=== PATIENT | female | born 1945 | race Caucasian/White ===

== ENCOUNTER 2016-04-27 10:30 | Day surgery (SDC) | payer OTHER, BC ==
[2016-04-27] MEDS ORDERED: MIDAZOLAM 2 MG/2 ML VIAL ONE (11:44)
[2016-04-27 11:54] LABS: INR 1.43 (0.83-1.16); PROTIME(PATIENT) 17.4 SEC (12.0-15.0)
[2016-04-27] MEDS ORDERED: PROPOFOL/EMULSION 500 MG/50 ML BOTTLE IV ONE (11:58)
[2016-04-27] MEDS ORDERED: fentaNYL 100 MCG/2 ML INJ ONE (11:58)
[2016-04-27] MEDS ORDERED: LIDOCAINE 2% 5 ML SDV ONE ×2 (11:59→12:00)
[2016-04-27] MEDS ORDERED: levOFLOXACIN 500 MG/DEXTROSE/100 ML BAG IV ONE (12:23)
[2016-04-27] MEDS ORDERED: levOFLOXACIN 500 MG/DEXTROSE 100 ML IV ONE (12:30)
--- NOTE | 2016-04-27 13:57 | GPN ---
[f rep st] PROCEDURE NOTE DATE OF PROCEDURE: 04/27/2016 PROCEDURE: Esophagogastroduodenoscopy with biopsy, endoscopic ultrasound with fine-needle aspiration. INDICATION: The patient is a 70-year-old female with history of COPD, chronic pancreatitis, who presents with complaints of upper abdominal pain, as well as abnormal imaging. She presents for further evaluation. CONSENT: Risks, benefits, and alternatives of the procedure were discussed in great detail with the patient. Risks of infection, bleeding, perforation, sedation, and pancreatitis were discussed. All questions were answered. Informed consent was obtained. MEDICATIONS: Propofol. Please see Anesthesiology record for details. Levaquin 5 mg IV x1. ESTIMATED BLOOD LOSS: Insignificant. ESOPHAGOGASTRODUODENOSCOPY EXAMINATION: The Olympus upper endoscopy was introduced via the mouth and advanced to the esophagus. The proximal and mid esophagus were normal in appearance. The patient had an irregular Z line and biopsies were taken. The stomach was entered and closely examined, including retroflexed view of angularis, cardia, and fundus. The mucosa in the whole stomach was mildly erythematous in a patchy distribution and biopsies were taken. The duodenal bulb and second portion of the duodenum were normal in appearance. Biopsies were taken to rule out celiac sprue. ENDOSCOPIC ULTRASOUND EXAMINATION: The Olympus linear echoendoscope was introduced into the mouth and advanced to the second portion of the duodenum. The pancreas was carefully examined from the uncinate process to the tail where the spleen was seen. The pancreatic duct and the head of the pancreas was dilated and an approximate 5 mm stone, echoic with acoustic shadowing, was seen in the head of the pancreas. The pancreatic duct in the head measured about 6mm. In the pancreas, she was noted to have calcifications as well as a hyperechoic pancreatic duct wall. Multiple dilated side branches were noted. In the body of the pancreas, a 17.6 mm cyst was seen. It was thin-walled and it did not have any obvious communication with the pancreatic duct. Doppler was used to rule out intervening vessles and 1 pass was made with a [employer] 22-gauge needle into the lesion. Approximately 0.5cc of fluid was aspirated was sent for CEA. Slides were also made. No suspicious periportal, peripancreatic, or perigastric nodes were appreciated. No obvious liver lesion was seen. The common bile duct was without stone, stricture or stenosis. IMPRESSION: 1. Chronic calcific pancreatitis-with cyst. Did not resemble a typical pseudocyst. FNA performed. 2. Pancreatic duct stone 3. Gastritis, status post biopsy. 4. Biopsies taken to rule out celiac disease. 5. Irregular Z line. RECOMMENDATIONS: 1. Follow up on biopsies and FNA results. 2. Ciprofloxacin x3 days. 3. Follow up in the office in 4 weeks. 4. Will discuss the risks and benefits of ERCP at office visit. /[id number]/MODL MTDD
== END 2016-04-27 14:15 | disposition home or self-care (01) ==
LOC: FSGY 10:30
PROVIDERS: ATTEND Internal Medicine Gastroenterology
PROC: 0DB68ZX Excision of Stomach, Via Natural or Artificial Opening Endoscopic, Diagnostic (ICD-10-PCS; 2016-04-27)
PROC: 0DB98ZX Excision of Duodenum, Via Natural or Artificial Opening Endoscopic, Diagnostic (ICD-10-PCS; 2016-04-27)
PROC: 0F9G4ZX Drainage of Pancreas, Percutaneous Endoscopic Approach, Diagnostic (ICD-10-PCS; 2016-04-27)
PROC: 0DB38ZX Excision of Lower Esophagus, Via Natural or Artificial Opening Endoscopic, Diagnostic (ICD-10-PCS; principal; 2016-04-27 11:45)
DX: K86.2 Cyst of pancreas (principal); K29.70 Gastritis, unspecified, without bleeding; K22.9 Disease of esophagus, unspecified; K86.1 Other chronic pancreatitis; K86.89 Other specified diseases of pancreas; K50.00 Crohn's disease of small intestine without complications; R10.10 Upper abdominal pain, unspecified; R11.2 Nausea with vomiting, unspecified; J44.9 Chronic obstructive pulmonary disease, unspecified; Z79.01 Long term (current) use of anticoagulants; Z86.718 Personal history of other venous thrombosis and embolism; Z85.118 Personal history of other malignant neoplasm of bronchus and lung
CPT/HCPCS: J1956; J2250; J2704; J3010

== ENCOUNTER 2016-05-02 11:10 | Inpatient (IN) | payer OTHER, BC ==
[2016-05-02] MEDS ORDERED: NS 1,000 ML IV ONE ×2 (11:50→13:12)
[2016-05-02] MEDS ORDERED: ONDANSETRON 4 MG/2 ML VIAL IVP ONE (11:50)
[2016-05-02 12:31] LABS: % IMMATURE GRANULYOCYTES 0.7 % (0.0-1.1); ABSOLUTE IMMATURE GRANULOCYTES 0.12 10^3/uL (0.00-0.10); ADD DIFF? NO; ADD MORPH? NO; ADD SCAN? NO; ATYPICAL LYMPHOCYTE FLAG 0 (0-99); FRAGMENT RBC FLAG 0 (0-99); HEMATOCRIT 33.6 % (38.0-47.0); LEFT SHIFT FLG 20 (0-99); LIPEMIA HEMOLYSIS FLAG 80 (0-99); MEAN CELL HEMOGLOBIN 34.8 pg (27.9-34.1); MEAN CELL HEMOGLOBIN CONCENTR. 32.7 g/dL (32.4-36.7); MEAN CELL VOLUME 106.3 fL (81.5-99.8); PLATELET CLUMPS FLAG 20 (0-99); PLATELET COUNT 213 10^3/uL (150-400); RED BLOOD CELL COUNT 3.16 10^6/uL (4.18-5.33)
[2016-05-02 12:37] LABS: ALANINE AMINOTRANSFERASE 25 IU/L (9-52); ALBUMIN 3.7 g/dL (3.5-5.0); ALKALINE PHOSPHATASE 70 IU/L (38-126); ANION GAP 19 mEq/L (8-16); ASPARTATE AMINOTRANSFERASE 23 IU/L (14-46); BILIRUBIN,TOTAL 0.8 mg/dL (0.1-1.4); BILIRUBIN-CONJUGATED 0.6 mg/dL (0.0-0.5); BILIRUBIN-UNCONJUGATED 0.2 mg/dL (0.0-1.1); CALCIUM 9.4 mg/dL (8.5-10.4); CARBON DIOXIDE 19 mEq/l (22-31); CHLORIDE 101 mEq/L (97-110); CREATININE 4.8 mg/dL (0.6-1.0); GLOMERULAR FILTRATION RATE 9; GLUCOSE 85 mg/dL (70-100); POTASSIUM 4.6 mEq/L (3.5-5.2); SODIUM 139 mEq/L (134-144); TOTAL PROTEIN 6.6 g/dL (6.3-8.2)
--- NOTE | 2016-05-02 13:10 | EDPHY ---
H & P Time Seen by Provider: 05/02/16 11:46 HPI/ROS: CHIEF COMPLAINT: Abdominal pain and vomiting HISTORY OF PRESENT ILLNESS: History of lung cancer which is stable on 2 L oxygen. History of chronic pancreatitis. Had EGD with biopsy by Dr. Napoles on Wednesday and has had vomiting every day and epigastric abdominal pain since then. Vomiting severe not associated with coffee-grounds or hematemesis. Associated with significant dehydration decreased urinary output and diffuse abdominal pain especially epigastric. Worse with any attempted oral intake. REVIEW OF SYSTEMS: Eye: no change in vision ENT: no sore throat Cardiac: no chest pain or syncope Pulmonary: no cough or SOB, chronic respiratory status is unchanged on home oxygen. Abdomen: HPI Musculoskeletal: no back pain Skin: no rash Neuro: no headache Constitutional: no fever : no urinary symptoms A comprehensive 10 point review of systems is otherwise negative aside from elements mentioned in the history of present illness. PAST MEDICAL HISTORY: Chronic pancreatitis, lung cancer Crohn's disease, COPD. Social history: not currently smoker, here with daughter. General Appearance: Alert and conversant, cooperative. Eyes: No scleral icterus. ENT, Mouth: Normal mucous membranes. Respiratory: Decreased breath sounds with slight expiratory wheezes bilaterally but speaks in full sentences. Cardiovascular: Regular rate and rhythm. Gastrointestinal: Right lower quadrant and epigastric pain but no peritoneal signs. Neurological: Alert and oriented x3. Normally conversant. Face symmetric, normal movement and sensation in all extremities. Skin: Warm and dry, no rashes. Musculoskeletal: No peripheral edema and no joint swelling. Psychiatric: Not agitated. Emergency Department course/MDM: Patient received IV pain medication and Zofran for nausea. 1309: Results discussed with the patient and family. Additional IV fluids. Consultation with GI of the [facility] and [facility]. Normal saline IV hydration 2 L, admission for Gastroenterology and Nephrology consultation. 1400: Morphine 4 mg IV times to and still has pain, Dilaudid 1 mg IV ordered. Smoking Status: Former smoker Constitutional: Initial Vital Signs Temperature (C) 36.7 C 05/02/16 11:26 Heart Rate 94 05/02/16 11:26 Respiratory Rate 16 05/02/16 11:26 Blood Pressure 101/71 05/02/16 11:26 O2 Sat (%) 87 L 05/02/16 11:26 O2 Delivery Mode Room Air Allergies/Adverse Reactions: erythromycin base [Erythromycin Base] Allergy (Mild, Verified 04/06/16 16:50) rash/GI upset Home Medications: Medication Instructions Recorded Warfarin Sodium [Coumadin 5MG (*)] 12.5 mg PO MWF@16 06/28/13 azaTHIOprine [Imuran 50 mg (*)] 50 mg PO BID 07/03/13 Acetaminophen [Tylenol 325mg (*)] 325 - 650 mg PO BID PRN 04/11/15 Warfarin Sodium [Coumadin 5MG (*)] 10 mg PO SUTUTHSA@16 04/11/15 Acetamn/Diphenhydramine 500/25 1 each PO HS PRN 02/29/16 [Tylenol PM (*)] Cyanocobalamin [Vitamin B12 (*)] 1,000 mcg PO DAILY 02/29/16 Multivitamins [Multivitamin (*)] 1 each PO DAILY 02/29/16 Ondansetron Odt [Zofran Odt 4 mg 4 mg PO Q4 #20 tab 03/06/16 (*)] Sennosides 8.6 mg PO DAILY PRN #30 tablet 03/06/16 oxyCODONE IR [Oxycodone Ir (*)] 5 mg PO Q12HRS PRN 04/06/16 Medical Decision Making - Diagnostics Imaging: CT acute on chronic pancreatitis otherwise negative, sweta at 1437. Differential Diagnosis: Differential diagnosis considered for abdominal pain including but not limited to appendicitis, cholecystitis, pancreatitis, gastritis and urinary tract infection. Consult/Admit Bed Type: [facility] 1314, [facility] [place] 1310, [facility] 1320 - Data Points Laboratory Results: Laboratory Results 05/02/16 11:50 05/02/16 11:50 05/02/16 11:50 WBC 17.63 H 10^3/uL (3.80-9.50) RBC 3.16 L 10^6/uL (4.18-5.33) Hgb 11.0 L g/dL (12.6-16.3) Hct 33.6 L % (38.0-47.0) MCV 106.3 H fL (81.5-99.8) MCH 34.8 H pg (27.9-34.1) MCHC 32.7 g/dL (32.4-36.7) RDW 14.0 % (11.5-15.2) Plt Count 213 10^3/uL (150-400) MPV 11.0 fL (8.7-11.7) Neut % (Auto) 89.7 H % (39.3-74.2) Lymph % (Auto) 0.9 L % (15.0-45.0) [place] % (Auto) 8.4 % (4.5-13.0) Eos % (Auto) 0.1 L % (0.6-7.6) Baso % (Auto) 0.2 L % (0.3-1.7) Nucleat RBC Rel Count 0.0 % (0.0-0.2) Absolute Neuts (auto) 15.83 H 10^3/uL (1.70-6.50) Absolute Lymphs (auto) 0.16 L 10^3/uL (1.00-3.00) Absolute Monos (auto) 1.48 H 10^3/uL (0.30-0.80) Absolute Eos (auto) 0.01 L 10^3/uL (0.03-0.40) Absolute Basos (auto) 0.03 10^3/uL (0.02-0.10) Absolute Nucleated RBC 0.00 10^3/uL (0-0.01) Immature Gran % 0.7 % (0.0-1.1) Immature Gran # 0.12 H 10^3/uL (0.00-0.10) Sodium 139 mEq/L (134-144) Potassium 4.6 mEq/L (3.5-5.2) Chloride 101 mEq/L (97-110) Carbon Dioxide 19 L mEq/l (22-31) Anion Gap 19 H mEq/L (8-16) BUN 52 H mg/dL (7-23) Creatinine 4.8 H D mg/dL (0.6-1.0) Estimated GFR 9 Glucose 85 mg/dL (70-100) Calcium 9.4 mg/dL (8.5-10.4) Total Bilirubin 0.8 mg/dL (0.1-1.4) Conjugated Bilirubin 0.6 H mg/dL (0.0-0.5) Unconjugated Bilirubin 0.2 mg/dL (0.0-1.1) AST 23 IU/L (14-46) ALT 25 IU/L (9-52) Alkaline Phosphatase 70 IU/L (38-126) Total Protein 6.6 g/dL (6.3-8.2) Albumin 3.7 g/dL (3.5-5.0) Lipase 3234.0 H IU/L (23-300) Medications Given: Discontinued Medications Hydromorphone HCl (Dilaudid) 1 mg IVP EDNOW ONE Stop: 05/02/16 14:01 Last Admin: 05/02/16 14:06 Dose: 1 mg Sodium Chloride (Ns) 1,000 mls @ 0 mls/hr IV ONCE ONE PRN Reason: Wide Open Stop: 05/02/16 11:51 Last Admin: 05/02/16 12:02 Dose: 1,000 mls Sodium Chloride (Ns) 1,000 mls @ 0 mls/hr IV ONCE ONE PRN Reason: Wide Open Stop: 05/02/16 13:13 Last Admin: 05/02/16 13:12 Dose: 1,000 mls Morphine Sulfate (Morphine) 4 mg IVP EDNOW ONE Stop: 05/02/16 11:51 Last Admin: 05/02/16 12:02 Dose: 4 mg Morphine Sulfate (Morphine) 4 mg IVP EDNOW ONE Stop: 05/02/16 13:04 Last Admin: 05/02/16 13:11 Dose: 4 mg Ondansetron HCl (Zofran) 4 mg IVP EDNOW ONE Stop: 05/02/16 11:51 Last Admin: 05/02/16 12:02 Dose: 4 mg Departure - Departure Disposition: [facility] Inpatient Acute Clinical Impression: Acute pancreatitis, Acute renal failure Condition: Serious
[2016-05-02] MEDS ORDERED: HYDROmorphONE/DILAUDID 1 MG/ML SYR IVP ONE (14:00)
--- NOTE | 2016-05-02 14:41 | CT ---
CT Abdomen and Pelvis Without Contrast History: left upper quadrant pain Technique: Ultrathin ultrafast [address] through the abdomen and pelvis without contrast. Dose reduction techniques were utilized. Comparison August 27, 2015 Findings: Since the prior exam there are multiple surgical clips in the gallbladder fossa consistent with cholecystectomy. There are multiple chronic stones in the pancreatic head associated with chroni c pancreatic ductal dilatation and a small, approximately 1 cm, low density round lesion in the poste rior wall of the pancreatic tail. There is new edema with a small amount of retroperitoneal fluid si tting between the distal pancreatic body and tail and the left kidney. There is edema in the adjacent peritoneal fat, paracolic gutter and left perirenal fat, as well as around the proximal celiac and S MA vessels.. There is no intra or extrahepatic biliary obstruction. The liver is normal in size and h omogeneous. The lung bases remain normally aerated without pleural fluid. There is chronic nonobstruc tive bilateral nephrolithiasis. Is a small amount of free fluid in the pelvis. There is no bowel obst ruction or obvious ileus. There is no free air. There is dense atherosclerotic calcification of the n ormal sized distal thoracic and abdominal aorta. There is no diverticulosis or diverticulitis. There is no evidence for appendicitis. The cecum is located in the right flank, at the end of a redundant a sending colon. Above the umbilicus. Impression: Suspect acute superimposed upon chronic pancreatitis. If there is concern for pancreatic necrosis, then consider CT with IV contrast. Results called to Dr. Evans. General information for patients regarding this examination can be found at [email or web address]. If you have questions or comments about this report, please contact me at [phone] (hospital) or [phone] (cell).
--- NOTE | 2016-05-02 15:38 | GHP ---
[f rep st] HISTORY AND PHYSICAL DATE OF ADMISSION: 05/02/2016 CHIEF COMPLAINT: Abdominal pain. HISTORY OF PRESENT ILLNESS: This is a 70-year-old female, who has been having problems with abdomina l pain on off, actually, for some time. She was admitted at the end of February with gallstone pancr eatitis. Her MRCP, at that time, showed pancreatic duct dilatation and probably benign pancreatic cy st. She had a laparoscopic cholecystectomy, at that time, and had been doing fairly well after that. However, she was still having some pain, and underwent ERCP 4 days ago. There was a pancreatic cyst that was aspirated. There was also a pancreatic duct stone. Her pancreatic duct stone was seen in t he head of the pancreas. Cytology from aspiration did not show any malignant cells. Since her ERCP, she has been having worsening abdominal pain, epigastric and left upper quadrant, wit h radiation to the back. This is sharp. She has had nausea vomiting, as well as a little bit of wanda rrhea. No fevers or chills. REVIEW OF SYSTEMS: A 10-point review of systems was obtained and negative. PAST MEDICAL HISTORY: 1. Recent cholecystectomy and chronic pancreatitis as above. 2. Recent ERCP as above. 3. 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 4. History of DVT and PE. 5. Chronic obstructive pulmonary disease. 6. History of Crohn disease, in remission, and on azathioprine. 7. History of small-bowel obstruction due to Crohn disease. 8. Hysterectomy. SOCIAL HISTORY: No smoking. Lives alone. She does have a daughter lives nearby. FAMILY HISTORY: Reviewed and noncontributory. PHYSICAL EXAM: VITAL SIGNS: Afebrile blood pressure is 111/70, heart rate 87, oxygen saturation 99% on 2 L. GENERAL: The patient is well developed, no apparent distress. HEENT: Nonicteric sclerae. EOM are intact. Dry mucous membranes. NECK: Supple. No thyromegaly. LUNGS: Good effort. Ana r to auscultation bilaterally. CARDIOVASCULAR: Regular rate and rhythm. No murmurs, gallops. ABDO MEN: Decreased bowel sounds. Soft. Epigastric right and left upper quadrant, as well as left lower quadrant tenderness. No rebound or guarding. EXTREMITIES: No clubbing, cyanosis, or edema. SKIN: Without rash. Dry, intact. NEUROLOGIC: Alert and oriented x3. Moving all 4 extremities equally. PSYCHIATRIC: Normal affect. LABORATORY DATA: White blood cell count elevated at 17, hemoglobin 11, platelets are 215. INR is 1. 4. Sodium 139, potassium 4.6, BUN is 52, creatinine is 4.8, with a baseline creatinine of 1.2. Amyl ase and lipase done yesterday show an amylase of 1290, and a lipase of 5704. Lipase is actually bett er today at 3234. CT scan of the abdomen shows [id number] pancreatitis. ASSESSMENT: This is a 70-year-old female presenting with [id number] pancreatitis, most likely due to recent endoscopic retrograde cholangiopancreatography. PLAN: 1. Acute pancreatitis: We will continue patient n.p.o. Will give aggressive fluid hydration. 2. Acute renal failure: Nephrology has been consulted. Again, we will hydrate the patient aggressi vely. 3. History of Crohn disease: Probably hold her azathioprine for the next couple days when she is ac utely ill. 4. History of small-cell lung cancer: This seemed to be still in remission. 5. History of deep venous thrombosis and pulmonary embolus: Will hold warfarin at this point, but w ill place her on prophylaxis with subcutaneous heparin. /[id number]/MODL
[2016-05-02] MEDS: ONDANSETRON 4 MG/2 ML VIAL IVP PRN (16:03)
[2016-05-02] MEDS: NS 1,000 ML IV SCH ×2 (16:03→23:10)
[2016-05-02] MEDS: oxyCODONE IR 5 MG TAB PO PRN ×2 (17:47→21:48)
--- NOTE | 2016-05-02 19:18 | GCON ---
[f rep st] CONSULTATION DATE OF CONSULTATION: 05/02/2016 CHIEF COMPLAINT: Abdominal pain, pancreatitis. HISTORY OF PRESENT ILLNESS: I have been asked to see this very pleasant 70-year-old woman for consul tation regarding abdominal pain and pancreatitis. The patient has recently been evaluated by Dr. Osvaldo guerrero as an outpatient. She has had a previous cholecystectomy, history of lung cancer, COPD and a histo ry of chronic pancreatitis. She underwent evaluation for abdominal pain. She is complaining of both upper and lower abdominal pain. She complains of sharp pain in the right and left upper quadrant. The pain can last for several hours. It is worse with eating, with no alleviating factors. She also was having crampy abdominal pain. She was having intermittent episodes of nausea and vomiting, abou t 3-4 episodes per week. She had findings of pancreatic calcifications on the abdominal x-ray consis tent with chronic pancreatitis. She was tried on a proton pump inhibitor as well as antispasmodics. She underwent EGD and EUS to rule out pancreatic cancer or a pancreatic duct stone. Upper endoscopy was essentially unremarkable. She had findings of calcifications in the pancreas consistent with ch ronic pancreatitis. She had no dominant stricture. She had an FNA of the pancreas was unremarkable. Since her procedure, she has been having worsening abdominal pain with nausea, vomiting, and diffic ulty eating. She was noted to have an elevated lipase. Her lipase was 5000. At that time, it was r ecommended she come in. She did not come in, and she had persistent symptoms. She came in with cont inued abdominal pain and difficulty eating, with nausea and vomiting. In the emergency department, s he was found to have a lipase of 3200, with normal liver function tests. Her BUN was 52, with a crea tinine of 4.8. White count was 17.63, with a hemoglobin of 11 and a hematocrit of 33.6. CT scan of the abdomen showed multiple chronic stones in the pancreatic head, calcifications consistent with chr onic pancreatitis, and ductal dilatation. She had a low-density round lesion in the posterior wall o f the pancreatic tail. There was new edema, with a small amount of retroperitoneal fluid between the distal pancreatic body and tail. There was also edema in the adjacent peritoneal fat, pericolic gut ter, and left perirenal fat, as well as around the proximal celiac and SMA vessels. There was no int ra- or extrahepatic ductal biliary obstruction. The liver was normal in size and was homogeneous. T he findings were consistent with acute on chronic pancreatitis. The patient was admitted to the [facility] for further management. PAST MEDICAL HISTORY: Remarkable for: 1. Cholecystectomy. 2. Chronic pancreatitis. 3. Recent ERCP as above. 4. History of small cell lung cancer metastatic to the brain, status post treatment in 2013, with no obvious recurrence. 5. History of DVT and PE. 6. COPD. 7. History of Crohn disease, in remission on azathioprine. 8. History of small bowel obstruction due to Crohn disease. 9. Hysterectomy. SOCIAL HISTORY: Nonsmoker. Lives alone. Nondrinker. FAMILY HISTORY: Negative as it pertains to the chief complaint. MEDICATIONS: Warfarin, azathioprine, multivitamins, B12, Zofran, oxycodone IR. ALLERGIES: Erythromycin. REVIEW OF SYSTEMS: Negative for 10 systems other than mentioned in the HPI. PHYSICAL EXAMINATION: VITAL SIGNS: 146/84, pulse 100, respiratory rate 18, 93% sat on 2 L nasal can nula, 36.6 Celsius temperature. GENERAL: A very pleasant woman in no acute distress. HEENT: Normo cephalic, atraumatic. EOMI. NECK: Supple. No cervical adenopathy. No thyromegaly. LUNGS: Clear . CARDIAC EXAM: Normal S1, S2, without murmur. ABDOMEN: Soft, benign. Mild tenderness to palpati on in the epigastrium. EXTREMITIES: Without clubbing, cyanosis, or edema. NEURO: Nonfocal. Cran ial nerves 2 through 12 intact. SKIN: Warm, dry, intact. PSYCH: Alert and oriented x3, with marlene l affect. LABORATORY DATA: White count 17.63, hemoglobin 11, hematocrit 33.6, MCV 106.3. Serum chemistries: Serum sodium 139, potassium 4.6, chloride 101, CO2 19, BUN 52, creatinine 4.8, AST 23, ALT 25, alk ph os 70, albumin 3.7, lipase 3234. IMPRESSION: A 70-year-old woman with acute on chronic pancreatitis. RECOMMENDATIONS: 1. N.p.o. 2. IV fluid hydration. 3. Analgesia. 4. Supportive care. 5. Repeat labs in the morning to include lipase, LFTs, and CMP. 6. Nephrology to see patient for possible prerenal azotemia versus ATN. We will follow with you. /[id number]/MODL
[2016-05-02] MEDS: HYDROmorphONE/DILAUDID 1 MG/ML SYR IVP PRN ×2 (20:09→23:08)
--- NOTE | 2016-05-02 20:14 | GCON ---
[f rep st] CONSULTATION NEPHROLOGY CONSULTATION DATE OF CONSULTATION: 05/02/2016 REASON FOR CONSULTATION: Acute renal failure. HISTORY OF PRESENT ILLNESS: I have been asked to evaluate the patient regarding her acute renal failure. She is a 70-year-old woman with a history of Crohn disease who has been having recurrent issues with abdominal pain for at least the past 2 months or so. She was admitted in February with what was felt to be gallstone pancreatitis. She underwent laparoscopic cholecystectomy. Due to recurrent pain, she underwent ERCP earlier this week. Her pain became worse over the past few days, and she eventually reported to the emergency room this morning. She states that for several days and perhaps longer, she has been unable to keep any significant oral fluids down due to vomiting. She does get dizzy and lightheaded with standing, but this is a chronic issue for her. She has not noted any change in her urinary habits. In the emergency room, she was found to have a creatinine of 4.8; it was 1.2 as recently as March 27 and was 3.1 yesterday. Reviewing her old lab records, her baseline creatinine appears to be between 1 and 1.5 for the past several years. An abdominal CT without contrast in the ER demonstrated what appeared to be acute on chronic pancreatitis. Nonobstructive intrarenal nephrolithiasis was noted. She has not been overtly hypotensive, but did appear quite dry in the ER. She has been receiving normal saline at 150 mL per hour. She believes that she feels a bit better than she did upon arrival earlier today. PAST MEDICAL HISTORY: 1. Chronic renal failure with a baseline creatinine between 1 and 1.5. 2. Crohn disease on azathioprine chronically. 3. COPD. 4. History of DVT and PE on anticoagulation. 5. History of small cell lung cancer, metastatic to the brain, status post treatment and reportedly in remission. 6. Acute on chronic pancreatitis as outlined above. PAST SURGICAL HISTORY: 1. Recent cholecystectomy. 2. Hysterectomy. 3. Thoracotomy. 4. Lobectomy. 5. Cataracts. ALLERGIES: Erythromycin. ADMISSION MEDICATIONS: 1. Coumadin. 2. Azathioprine. 3. Multivitamin. 4. Vitamin B12. 5. Zofran. 6. Senna. 7. Oxycodone. SOCIAL HISTORY: She is originally from [place], [place], but has lived in [place] since 1957. She is a former smoker but quit some time ago. FAMILY HISTORY: Her mother underwent nephrectomy for unclear reasons, but there is no family history of renal failure that she is aware of. REVIEW OF SYSTEMS: Positive for nausea, vomiting and abdominal pain. She denies using any NSAIDs recently. She denies any gross hematuria or change in her urinary frequency or volume. She has some chronic shortness of breath, but this is not changed. She denies any chest pain. She did have some diarrhea. Aside from other positives as noted in the HPI, the remainder of 10-organ system review is negative. PHYSICAL EXAMINATION: GENERAL: She is somewhat frail-appearing but in no acute distress. VITAL SIGNS: Blood pressure 148/84, heart rate is 100, oxygenation is 93% on 2 liters by nasal cannula. HEENT: Sclerae are anicteric. Oral mucosa is perhaps slightly dry. NECK: Supple without JVD or lymphadenopathy. There are no carotid bruits. LUNGS: Have diminished breath sounds throughout. HEART: Regular rate and rhythm without murmurs, gallops, or rubs. ABDOMEN: Soft but quite tender, particularly in the left angelo- abdomen with radiation to the left flank. There is no rebound tenderness. I cannot appreciate hepatosplenomegaly, masses, or bruits. EXTREMITIES: There is no lower extremity edema. Her feet are warm and appear well-perfused but I cannot definitively appreciate pedal pulses. SKIN: There are no skin rashes. NEURO: She is awake, alert, and appropriate. There is no facial droop. : Byrd catheter is absent. LABORATORY: Sodium 139, potassium 4.6, chloride 101, CO2 19, BUN 52, creatinine 4.8, calcium 9.4, glucose 8.5, total bilirubin 0.8, albumin 3.7, total protein 6.6. Lipase is 3234. White blood cell count is 17.6, hemoglobin 11.0, platelets 213. IMPRESSION AND PLAN: 1. Acute renal failure. This is most likely either pre-renal azotemia due to volume depletion or ischemic acute tubular necrosis. There was no evidence of obstruction on her abdominal CT. I would not pursue a renal ultrasound. Urine chemistries and a urinalysis will help in differentiating pre-renal azotemia from acute tubular necrosis as well as other diagnostic possibilities. For now , I would continue aggressive IV fluid resuscitation as is currently being done. We did discuss the theoretical possibility of temporary hemodialysis if her renal function does not improve within the next 2 or 3 days. She should obviously avoid any contrast-enhanced imaging studies or non-steroidal anti- inflammatories. 2. Pancreatitis. This appears to be an acute on chronic process. She is being appropriately volume resuscitated. Thank you for the consultation. We will follow up with you. /[id number]/MODL MTDD
[2016-05-02] MEDS: HEPARIN 5,000 UNIT/0.5 ML SYR SC SCH (21:47)
[2016-05-03] MEDS: oxyCODONE IR 5 MG TAB PO PRN ×3 (01:41→17:43)
[2016-05-03] MEDS: NS 1,000 ML IV SCH ×3 (05:17→18:44)
[2016-05-03] MEDS: HEPARIN 5,000 UNIT/0.5 ML SYR SC SCH (05:17)
[2016-05-03 05:26] LABS: % IMMATURE GRANULYOCYTES 0.9 % (0.0-1.1); ABSOLUTE IMMATURE GRANULOCYTES 0.12 10^3/uL (0.00-0.10); ADD DIFF? NO; ADD MORPH? NO; ADD SCAN? NO; ATYPICAL LYMPHOCYTE FLAG 0 (0-99); FRAGMENT RBC FLAG 20 (0-99); HEMOGLOBIN 8.9 g/dL (12.6-16.3); LEFT SHIFT FLG 40 (0-99); LIPEMIA HEMOLYSIS FLAG 80 (0-99); MEAN CELL HEMOGLOBIN 35.2 pg (27.9-34.1); MEAN CELL VOLUME 106.7 fL (81.5-99.8); MEAN PLATELET VOLUME 10.6 fL (8.7-11.7); PLATELET CLUMPS FLAG 10 (0-99); PLATELET COUNT 201 10^3/uL (150-400); RED BLOOD CELL COUNT 2.53 10^6/uL (4.18-5.33); RED CELL DISTRIBUTION WIDTH 14.3 % (11.5-15.2)
[2016-05-03 05:33] LABS: INR 3.51 (0.83-1.16); PROTIME(PATIENT) 35.8 SEC (12.0-15.0)
[2016-05-03 05:40] LABS: ALANINE AMINOTRANSFERASE 27 IU/L (9-52); ALBUMIN 2.8 g/dL (3.5-5.0); ALKALINE PHOSPHATASE 56 IU/L (38-126); ANION GAP 14 mEq/L (8-16); ASPARTATE AMINOTRANSFERASE 18 IU/L (14-46); BILIRUBIN,TOTAL 0.4 mg/dL (0.1-1.4); CALCIUM 8.2 mg/dL (8.5-10.4); CARBON DIOXIDE 17 mEq/l (22-31); CHLORIDE 111 mEq/L (97-110); CREATININE 5.2 mg/dL (0.6-1.0); GLOMERULAR FILTRATION RATE 8; GLUCOSE 64 mg/dL (70-100); POTASSIUM 4.9 mEq/L (3.5-5.2); SODIUM 142 mEq/L (134-144); TOTAL PROTEIN 5.3 g/dL (6.3-8.2)
[2016-05-03] MEDS: ONDANSETRON 4 MG/2 ML VIAL IVP PRN (07:15)
[2016-05-03] MEDS ORDERED: PHYTONADIONE 2.5 MG/2.5 ML ORAL UDL PO ONE ×2 (10:04)
--- NOTE | 2016-05-03 10:04 | HOSPPROG ---
Hospitalist Progress Note Assessment/Plan: 70-year-old female with recent cholecystectomy and chronic pancreatitis presents with acute pancreatitis after recent EGD EUS and pancreatic cyst aspiration * acute on chronic pancreatitis * lipase trending down * still with abdominal pain * continue NPO * Anuric vs oliguric acute acute renal failure * patient states she is not urinating and there is no I/O's recorded * worsening creatinine seems consistent with ATN * will place Byrd for more accurate I&Os * may need dialysis * previous history of DVT and PE during lung cancer treatment * INR 3.5 * will give a little bit of vitamin K and anticoagulate with DVT prophylaxis doses of heparin * she may need dialysis catheter tomorrow if she continues to not make urine * history of Crohn's * holding azathioprine * previous history of small cell lung cancer status post resection and brain radiation * recent cholecystectomy Subjective: still having abdominal pain. No nausea. Says she is not urinating Objective: Vital Signs Temp Pulse Resp BP Pulse Ox 36.3 C 90 18 115/64 98 05/03/16 08:00 05/03/16 08:00 05/03/16 08:00 05/03/16 08:00 05/03/16 08:00 Laboratory Results 05/03/16 04:36 05/03/16 04:36 PT 35.8 SEC (12.0-15.0) H 05/03/16 04:36 INR 3.51 (0.83-1.16) H 05/03/16 04:36 - Physical Exam Constitutional: no apparent distress, appears nourished, not in pain Eyes: anicteric sclera, EOMI Ears, Nose, Mouth, Throat: moist mucous membranes, hearing normal, ears appear normal Cardiovascular: regular rate and rhythym, no murmur, rub, or gallop, No edema Respiratory: no respiratory distress, no rales or rhonchi Gastrointestinal: normoactive bowel sounds, no palpable masses, tenderness ( epigastric) Skin: warm Neurologic: AAOx3 Psychiatric: interacting appropriately, not anxious, not encephalopathic, thought process linear ICD10 Worksheet Patient Problems: Problems Problem Status Diagnosed Inflammatory bowel disease Active Tobacco user Active Fecal impaction Acute 07/03/13 Acute pancreatitis Acute Acute renal failure Acute COPD (chronic obstructive pulmonary disease) case management patient Acute Dehydration, moderate Acute SCLC (small cell lung carcinoma) Acute 02/06/13 Vomiting and diarrhea Acute Chronic obstructive pulmonary disease with acute exacerbation Acute Foot swelling Acute Hypoxia Acute Pleural effusion Acute Shortness of breath Acute Vertigo Acute
--- NOTE | 2016-05-03 11:47 | SOAPPROG ---
SOAP Progress Note Assessment/Plan: Assessment: Acute on Chronic pancreatitis, labs improving but still with abdominal pain. No further nausea and vomiting. Plan: 1. Continue NPO 2. Continue supportive care and IV hydration, analgesia 3. Nephrology seeing patient for azotemia. 05/03/16 11:48 Subjective: CC: Dehydration, pancreatitis, abdominal pain Feeling better, Still with abdominal pain and remains NPO Objective: Vital Signs Temp Pulse Resp BP Pulse Ox 36.3 C 90 18 115/64 98 05/03/16 08:00 05/03/16 08:00 05/03/16 08:00 05/03/16 08:00 05/03/16 08:00 Laboratory Results 05/03/16 04:36 05/03/16 04:36 PT 35.8 SEC (12.0-15.0) H 05/03/16 04:36 INR 3.51 (0.83-1.16) H 05/03/16 04:36 Generic Name Dose Route Start Last Admin Trade Name Freq PRN Reason Stop Dose Admin Acetaminophen 650 mg 05/02/16 15:14 Tylenol PO 10/29/16 15:13 Q4HRS PRN Pain, Mild/Fever, Can Take PO Hydromorphone HCl 0.5 - 1 mg 05/02/16 15:14 05/02/16 23:08 Dilaudid IVP 05/12/16 15:13 1 mg Q4HRS PRN Administration Pain, Severe Unable to Take PO Sodium Chloride 1,000 mls @ 150 mls/hr 05/02/16 15:15 05/03/16 05:17 Ns IV 10/29/16 15:14 1,000 mls CONT SRIRAM Administration Ondansetron HCl 4 mg 05/02/16 15:14 05/03/16 07:15 Zofran IVP 10/29/16 15:13 4 mg Q4HRS PRN Administration Nausea/Vomiting, Can't Take PO Ondansetron HCl 4 mg 05/02/16 15:14 Zofran Odt PO 10/29/16 15:13 Q4HRS PRN Nausea/Vomiting, Use 1st Oxycodone HCl 5 - 10 mg 05/02/16 15:17 05/03/16 05:17 Oxycodone Ir PO 05/12/16 15:16 10 mg Q4HRS PRN Administration Pain, Severe Able to Take PO Phytonadione 5 mg 05/03/16 10:04 Vitamin K PO 05/03/16 10:05 ONCE ONE Discontinued Medications Generic Name Dose Route Start Last Admin Trade Name Jonathan PRN Reason Stop Dose Admin Heparin Sodium (Porcine) 5,000 unit 05/02/16 22:00 05/03/16 05:17 Heparin Sc Injection SC 10/29/16 21:59 5,000 unit Q8 SRIRAM Administration Hydromorphone HCl 1 mg 05/02/16 14:00 05/02/16 14:06 Dilaudid IVP 05/02/16 14:01 1 mg EDNOW ONE Administration Sodium Chloride 1,000 mls @ 0 mls/hr 05/02/16 11:50 05/02/16 12:02 Ns IV 05/02/16 11:51 1,000 mls ONCE ONE Administration Wide Open Sodium Chloride 1,000 mls @ 0 mls/hr 05/02/16 13:12 05/02/16 13:12 Ns IV 05/02/16 13:13 1,000 mls ONCE ONE Administration Wide Open Morphine Sulfate 4 mg 05/02/16 11:50 05/02/16 12:02 Morphine IVP 05/02/16 11:51 4 mg EDNOW ONE Administration Morphine Sulfate 4 mg 05/02/16 13:03 05/02/16 13:11 Morphine IVP 05/02/16 13:04 4 mg EDNOW ONE Administration Ondansetron HCl 4 mg 05/02/16 11:50 05/02/16 12:02 Zofran IVP 05/02/16 11:51 4 mg EDNOW ONE Administration Phytonadione 2.5 mg 05/03/16 10:04 Vitamin K PO 05/03/16 10:05 ONCE ONE WBC 13.97 10^3/uL (3.80-9.50) H 05/03/16 04:36 RBC 2.53 10^6/uL (4.18-5.33) L 05/03/16 04:36 Hgb 8.9 g/dL (12.6-16.3) L 05/03/16 04:36 Hct 27.0 % (38.0-47.0) L 05/03/16 04:36 MCV 106.7 fL (81.5-99.8) H 05/03/16 04:36 MCH 35.2 pg (27.9-34.1) H 05/03/16 04:36 MCHC 33.0 g/dL (32.4-36.7) 05/03/16 04:36 RDW 14.3 % (11.5-15.2) 05/03/16 04:36 Plt Count 201 10^3/uL (150-400) 05/03/16 04:36 MPV 10.6 fL (8.7-11.7) 05/03/16 04:36 Neut % (Auto) 87.1 % (39.3-74.2) H 05/03/16 04:36 Lymph % (Auto) 2.1 % (15.0-45.0) L 05/03/16 04:36 [place] % (Auto) 9.2 % (4.5-13.0) 05/03/16 04:36 Eos % (Auto) 0.6 % (0.6-7.6) 05/03/16 04:36 Baso % (Auto) 0.1 % (0.3-1.7) L 05/03/16 04:36 Nucleat RBC Rel Count 0.0 % (0.0-0.2) 05/03/16 04:36 Absolute Neuts (auto) 12.17 10^3/uL (1.70-6.50) H 05/03/16 04:36 Absolute Lymphs (auto) 0.30 10^3/uL (1.00-3.00) L 05/03/16 04:36 Absolute Monos (auto) 1.28 10^3/uL (0.30-0.80) H 05/03/16 04:36 Absolute Eos (auto) 0.08 10^3/uL (0.03-0.40) 05/03/16 04:36 Absolute Basos (auto) 0.02 10^3/uL (0.02-0.10) 05/03/16 04:36 Absolute Nucleated RBC 0.00 10^3/uL (0-0.01) 05/03/16 04:36 Immature Gran % 0.9 % (0.0-1.1) 05/03/16 04:36 Immature Gran # 0.12 10^3/uL (0.00-0.10) H 05/03/16 04:36 PT 35.8 SEC (12.0-15.0) H 05/03/16 04:36 INR 3.51 (0.83-1.16) H 05/03/16 04:36 Sodium 142 mEq/L (134-144) 05/03/16 04:36 Potassium 4.9 mEq/L (3.5-5.2) 05/03/16 04:36 Chloride 111 mEq/L (97-110) H D 05/03/16 04:36 Carbon Dioxide 17 mEq/l (22-31) L 05/03/16 04:36 Anion Gap 14 mEq/L (8-16) 05/03/16 04:36 BUN 55 mg/dL (7-23) H 05/03/16 04:36 Creatinine 5.2 mg/dL (0.6-1.0) H 05/03/16 04:36 Estimated GFR 8 05/03/16 04:36 Glucose 64 mg/dL (70-100) L 05/03/16 04:36 Calcium 8.2 mg/dL (8.5-10.4) L 05/03/16 04:36 Total Bilirubin 0.4 mg/dL (0.1-1.4) 05/03/16 04:36 Conjugated Bilirubin 0.6 mg/dL (0.0-0.5) H 05/02/16 11:50 Unconjugated Bilirubin 0.2 mg/dL (0.0-1.1) 05/02/16 11:50 AST 18 IU/L (14-46) 05/03/16 04:36 ALT 27 IU/L (9-52) 05/03/16 04:36 Alkaline Phosphatase 56 IU/L (38-126) 05/03/16 04:36 Total Protein 5.3 g/dL (6.3-8.2) L 05/03/16 04:36 Albumin 2.8 g/dL (3.5-5.0) L 05/03/16 04:36 Lipase 2161.0 IU/L (23-300) H 05/03/16 04:36 Physical Exam - Physical Exam General Appearance: alert, no apparent distress Respiratory: lungs clear, normal breath sounds Cardiac/Chest: regular rate, rhythm Abdomen: soft, other (mild tenderness to palpation) Skin: normal color, warm/dry Neuro/Psych: alert, normal mood/affect, oriented x 3 ICD10 Worksheet Patient Problems: Problems Problem Status Diagnosed Inflammatory bowel disease Active Tobacco user Active Fecal impaction Acute 07/03/13 Acute pancreatitis Acute Acute renal failure Acute COPD (chronic obstructive pulmonary disease) case management patient Acute Dehydration, moderate Acute SCLC (small cell lung carcinoma) Acute 02/06/13 Vomiting and diarrhea Acute Chronic obstructive pulmonary disease with acute exacerbation Acute Foot swelling Acute Hypoxia Acute Pleural effusion Acute Shortness of breath Acute Vertigo Acute
--- NOTE | 2016-05-03 16:26 | SOAPPROG ---
SOAP Progress Note Assessment/Plan: Assessment: 1. arf: most likely ischemic atn vs prerenal, though lack of response to ivf thus far argues for former. Urine studies will help differentiate, if FENA elevated would decrease ivf to avoid overload. Cont Byrd for now. Agree with holding anticoag in case access needed. No indications for hd yet but likely will need in next day or two if no recovery. 2. Met acidosis: due to arf, follow for now but consider supplementing bicarb if worsens. 3. hypoCa: likely due to pancreatitis, would avoid replacing unless symptomatic or much more severe. Check phos. 4. pancreatitis: enzymatically improving, cont ivf for now but low threshold to decrease if renal injury appears to be atn. Plan: 05/03/16 16:22 Subjective: Feeling about the same, abd discomfort perhaps a bit better. Denies sob above her b/l. Byrd placed earlier today with 100ml uo. Objective: Vital Signs Temp Pulse Resp BP Pulse Ox 36.3 C 77 18 106/68 98 05/03/16 08:00 05/03/16 08:30 05/03/16 08:00 05/03/16 08:30 05/03/16 08:00 Laboratory Results 05/03/16 04:36 05/03/16 04:36 PT 35.8 SEC (12.0-15.0) H 05/03/16 04:36 INR 3.51 (0.83-1.16) H 05/03/16 04:36 Physical Exam - Physical Exam General Appearance: no apparent distress Respiratory: normal breath sounds Cardiac/Chest: regular rate, rhythm Abdomen: soft Extremities: pedal edema (none) ICD10 Worksheet Patient Problems: Problems Problem Status Diagnosed Inflammatory bowel disease Active Tobacco user Active Fecal impaction Acute 07/03/13 Acute pancreatitis Acute Acute renal failure Acute COPD (chronic obstructive pulmonary disease) case management patient Acute Dehydration, moderate Acute SCLC (small cell lung carcinoma) Acute 02/06/13 Vomiting and diarrhea Acute Chronic obstructive pulmonary disease with acute exacerbation Acute Foot swelling Acute Hypoxia Acute Pleural effusion Acute Shortness of breath Acute Vertigo Acute
[2016-05-03 18:55] LABS: COLOR YELLOW; LEUKOCYTE ESTERASE,URINE TRACE (NEGATIVE); NITRITE,URINE NEGATIVE (NEGATIVE)
[2016-05-03 19:14] LABS: BACTERIA 3+ /hpf (NONE SEEN); MUCUS TRACE /lpf (NONE-1+); RBC,URINE 25-50 /hpf (0-3); WBC,URINE 25-50 /hpf (0-3)
[2016-05-04] MEDS: NS 1,000 ML IV SCH ×2 (00:39→07:55)
[2016-05-04 06:01] LABS: INR 2.47 (0.83-1.16)
[2016-05-04 08:42] LABS: % IMMATURE GRANULYOCYTES 0.8 % (0.0-1.1); ABSOLUTE IMMATURE GRANULOCYTES 0.12 10^3/uL (0.00-0.10); ADD DIFF? NO; ADD MORPH? NO; ADD SCAN? NO; ATYPICAL LYMPHOCYTE FLAG 0 (0-99); FRAGMENT RBC FLAG 30 (0-99); HEMATOCRIT 30.9 % (38.0-47.0); HEMOGLOBIN 9.8 g/dL (12.6-16.3); LEFT SHIFT FLG 60 (0-99); LIPEMIA HEMOLYSIS FLAG 80 (0-99); MEAN CELL HEMOGLOBIN 34.6 pg (27.9-34.1); MEAN CELL HEMOGLOBIN CONCENTR. 31.7 g/dL (32.4-36.7); MEAN CELL VOLUME 109.2 fL (81.5-99.8); MEAN PLATELET VOLUME 10.3 fL (8.7-11.7); PLATELET CLUMPS FLAG 10 (0-99); PLATELET COUNT 260 10^3/uL (150-400); RED BLOOD CELL COUNT 2.83 10^6/uL (4.18-5.33); RED CELL DISTRIBUTION WIDTH 14.7 % (11.5-15.2)
[2016-05-04 09:15] LABS: ANION GAP 15 mEq/L (8-16); CALCIUM 8.1 mg/dL (8.5-10.4); CARBON DIOXIDE 13 mEq/l (22-31); CHLORIDE 115 mEq/L (97-110); CREATININE 6.6 mg/dL (0.6-1.0); GLOMERULAR FILTRATION RATE 6; GLUCOSE 61 mg/dL (70-100); SODIUM 143 mEq/L (134-144)
[2016-05-04] MEDS ORDERED: HEPARIN 50,000 UNIT/10 ML VIAL ONE ×3 (09:46→20:10)
--- NOTE | 2016-05-04 10:50 | SOAPPROG ---
SOAP Progress Note Assessment/Plan: Assessment: 1. JUAN Oliguric, acidemic. Tachypneic. Will stop IVF. HD today, again tomorrow. Reviewed with primary hospitalist. Will monitor closely. 2. Anemia is stable 3. Pancreatitis NPO, GI service is following. Subjective: Tachypneic, mentating ok Objective: Vital Signs Temp Pulse Resp BP Pulse Ox 36.8 C 85 20 126/59 H 97 05/04/16 07:30 05/04/16 07:30 05/04/16 07:30 05/04/16 07:30 05/04/16 07:30 Laboratory Results 05/04/16 08:25 05/04/16 08:25 05/03/16 05/04/16 05/05/16 05:59 05:59 05:59 Intake Total 1650 Output Total 50 Balance 1600 PT 27.0 SEC (12.0-15.0) H D 05/04/16 05:10 INR 2.47 (0.83-1.16) H 05/04/16 05:10 Physical Exam - Physical Exam General Appearance: mild distress Respiratory: other (Bronchial BS in bases, increased rate) Cardiac/Chest: regular rate, rhythm Extremities: pedal edema Neuro/Psych: oriented x 3 ICD10 Worksheet Patient Problems: Problems Problem Status Diagnosed Inflammatory bowel disease Active Tobacco user Active Fecal impaction Acute 07/03/13 Acute pancreatitis Acute Acute renal failure Acute COPD (chronic obstructive pulmonary disease) case management patient Acute Dehydration, moderate Acute SCLC (small cell lung carcinoma) Acute 02/06/13 Vomiting and diarrhea Acute Chronic obstructive pulmonary disease with acute exacerbation Acute Foot swelling Acute Hypoxia Acute Pleural effusion Acute Shortness of breath Acute Vertigo Acute
--- NOTE | 2016-05-04 11:20 | POSTOPPROG ---
Post Op Note Date of Operation: 05/04/16 Surgeon: Brennon Pizarro Anesthesia: Local (Specify) Pre-op Diagnosis: Acute renal failure Post-op Diagnosis: same Indication: Acidemic, oliguric Procedure: Temporary dialysis catheter, right jugular 12F Dandre Findings: Good position, ready to use. Inf/Abcess present in the surg proc area at time of surgery?: No EBL: Minimal Complications: 0
[2016-05-04] MEDS: oxyCODONE IR 5 MG TAB PO PRN ×2 (11:41→15:43)
[2016-05-04] MEDS ORDERED: ALBUTEROL 3 ML DEYVIAL IH PRN (11:50)
[2016-05-04] MEDS ORDERED: IPRATROPIUM/ALBUTEROL 3 ML DEYVIAL ONE (12:03)
--- NOTE | 2016-05-04 12:10 | IR ---
Imaging guidance temporary right jugular dialysis catheter History: Acute renal failure. Acidemia, tachypnea. Consent: Risks and benefits of the procedure were discussed in detail. Informed consent was obtained . Medication: 1% Xylocaine local anesthetic. Technique: All elements of maximal sterile barrier technique were used, including cap, mask, sterile gown, sterile gloves, large sterile sheath, hand hygiene, and 2% chlorhexidine for cutaneous antiseps is. For ultrasound imaging guidance, the transducer and cable were placed in a sterile cover, and modesto rile coupling gel was used. Ultrasound confirmed patency of right internal jugular vein. With ultraso und guidance, the vein was entered with a 17-gauge needle. A 0.035 J-wire was followed by 8 and 12-Fr ench dilators. A 12-Ecuadorean multisidehole triple-lumen Mahurkar temporary dialysis catheter was placed , and spot image was taken. The external wings were secured to the skin with 2 sutures of 2-0 nylon. Sterile dressing was applied. Catheter irrigated easily. The patient tolerated the procedure well and was returned to her room in stable condition. Fluoroscopy time: Less than 0.1 minute. Estimated exposure in milligray: 1.5. Findings: Right jugular dialysis catheter terminates at the junction of superior vena cava and right atrium. Right pleural effusion is present. Multiple surgical clips are found in the lower right angelo thorax. The patient has a history of surgery for lung cancer. Impression: New right jugular temporary dialysis catheter is ready use. - - - - - - - - - - - - - - - - - - - - - - - - - - - - - (PQRS measures: Current medications were listed in the medical record, including all known prescripti ons, [id number] medications, herbal medications, and nutritional supplements. Tobacco use: None . Prophylactic antibiotic:Unnecessary. VTE prophylaxis:Unnecessary.)
[2016-05-04] MEDS: ACETYLCYSTEINE 10% 30 ML VIAL IH SCH ×2 (12:19→17:27)
[2016-05-04] MEDS: IPRATROPIUM/ALBUTEROL 3 ML DEYVIAL IH SCH ×3 (12:20→22:07)
--- NOTE | 2016-05-04 12:56 | DX ---
Chest, One View Portable - May 04, 2016, at 1216 hours History: History of lung cancer, history of COPD, acute respiratory failure. Comparison: February 2016 Findings: Cardiac silhouette is normal in size. Right internal jugular line in the superior vena cav a. Surgical clips in the right hilar region. Pleuroparenchymal scarring in the right lower lobe, tristen lar to the previous study. Patchy left lower lobe opacity, which may represent atelectasis or pneumon itis. Bilateral peribronchial thickening. No pneumothorax. Severe emphysema on prior CT. Impression: 1. Right internal jugular line without pneumothorax. 2. Postsurgical pleuroparenchymal scarring in the right lower lobe with right hilar surgical clips fr om previous lobectomy. 3. Possible left lower lobe pneumonitis or atelectasis. 4. Severe emphysema with probable superimposed chronic bronchitis.
--- NOTE | 2016-05-04 13:17 | SOAPPROG ---
SOAP Progress Note Assessment/Plan: Assessment: 1. Post-EUS pancreatitis 2. Chronic calcific pancreatitis 3. JUAN with dialysis requirement 4. Crohns disease 5. Abdominal pain-Epigastric and LUQ Plan: 1. Continued pain with nausea. Same as yesterday. Likely due to pancreatitis. 2. Continue very limited po intake (ice-chips and sips only) 3. Will need creon once po intake resumes 4. Dialysis today is planned 5. Repeat Lipase in AM 6. Ideally would benefit from IVF but with oliguric renal insufficiency this will be hard. Will leave up to nephrology based on UOP how aggressively to hydrate for her pancreatitis. 7. Will follow. 05/04/16 13:13 Subjective: CC: Abdominal pain Pain is about the same as yesterday. 4/10 in severity. Epigastric and LUQ into back. Also some substernal discomfort ongoing since the EUS last Wednesday. Planning for dialysis today. Objective: Vital Signs Temp Pulse Resp BP Pulse Ox 36.8 C 85 20 126/59 H 97 05/04/16 07:30 05/04/16 07:30 05/04/16 07:30 05/04/16 07:30 05/04/16 07:30 Laboratory Results 05/04/16 08:25 05/04/16 08:25 05/03/16 05/04/16 05/05/16 05:59 05:59 05:59 Intake Total 1650 Output Total 50 Balance 1600 PT 27.0 SEC (12.0-15.0) H D 05/04/16 05:10 INR 2.47 (0.83-1.16) H 05/04/16 05:10 Physical Exam - Physical Exam General Appearance: mild distress EENT: other (Triple lumen catheter in right neck) Neck: supple Respiratory: decreased breath sounds, rales, rhonchi Cardiac/Chest: regular rate, rhythm, systolic murmur Abdomen: other (TTP epigastric and LUQ. No R/G. NABS. Mild tympany with distention) Skin: pallor, No cyanosis, No jaundice Extremities: other (Compression stockings in place.), No pedal edema, No swelling Neuro/Psych: alert, normal mood/affect ICD10 Worksheet Patient Problems: Problems Problem Status Diagnosed Inflammatory bowel disease Active Tobacco user Active Fecal impaction Acute 07/03/13 Acute pancreatitis Acute Acute renal failure Acute COPD (chronic obstructive pulmonary disease) case management patient Acute Dehydration, moderate Acute SCLC (small cell lung carcinoma) Acute 02/06/13 Vomiting and diarrhea Acute Chronic obstructive pulmonary disease with acute exacerbation Acute Foot swelling Acute Hypoxia Acute Pleural effusion Acute Shortness of breath Acute Vertigo Acute
--- NOTE | 2016-05-04 14:52 | IR ---
Fluoroscopic-guided replacement of right jugular dialysis catheter History: Possible contamination of right jugular temporary dialysis catheter that was placed earlier today. Technique: The right side of the neck and the exiting right jugular dialysis catheter were prepped an d draped in sterile fashion. 1% Xylocaine was used for local anesthetic. Previous retention sutures w ere severed. 0.035 Glidewire was used to exchange for a new 12-[place]azakh triple-lumen Mahurkar dialysis catheter. Spot image was taken. Wings of the catheter was secured with 2 sutures of 2-0 nylon. The briana mens of the catheter were irrigated and the caps were attached. The patient was returned to her room in stable condition. Fluoroscopy time: Less than 0.1 minute. Estimated exposure in milligray: 1.7. Findings: The new catheter terminates in the superior vena cava, just above the right atrium. Impression: The replacement right jugular triple-lumen temporary dialysis catheter is ready to use. - - - - - - - - - - - - - - - - - - - - - - - - - - - - - (PQRS measures: Current medications were listed in the medical record, including all known prescripti ons, [id number] medications, herbal medications, and nutritional supplements. Tobacco use: None . Prophylactic antibiotic:Unnecessary. VTE prophylaxis:Unnecessary.) +++.................................................................................................. ....................................................................................................
--- NOTE | 2016-05-04 15:29 | HOSPPROG ---
Hospitalist Progress Note Assessment/Plan: 70 yo F with hx of gallstone pancreatitis s/p recent jules and ERCP presenting with post eus pancreatitis and juan # acute on chronic pancreatitis: patient with hx of chronic calcific pancreatitis s/p cholecytectomy and more recently s/p EGD/EUS with post eus acute pancreatitis. Pain is now relatively more controlled. GI following. No great options for her chronic pancreatitis, usual conservative mgmt for acute panc but limited by oliguric JUAN as next. # juan: developing in setting of above and likely ischemic ATN that has not responded to IVF. Renal following and plans for HD underway, temp HD cath placed. Avoiding nephrotoxins, renally dosing meds. # acute on chronic COPD: with worsening wheeze developing in setting of above as well as increasing wob. CXR with ? pna as next. Added duonebs scheduled, prn albuterol, mucomyst. Will hold off on antibiotics for now. # acute hypoxic respiratory failure: CXR personally reviewed and concerning for possible infiltrate LLL--atelectasis vs pna, difficult to exclude pna however and will start zosyn for coverage of possible aspiration pna. Tx for copd as above, IS, oob to chair. # hx of dvt/pe: occurred in 2013, however given hx of malignancy and limited mobility, continues RF for recurrence. Holding warfarin for now given need for HD cath etc. On ppx dose only right now. # NSCLC: s/p partial lung resection # Crohn's disease: no e/o exacerbation or other acute issues currently # dispo: IP status, patient in guarded condition that will require ongoing IP care Care plan reviewed with GI. Old records reviewed and summarized as above. Subjective: no significant overnight events, patient sob and wheezing this am, had temp HD cath placed and did well with that Objective: Vital Signs Temp Pulse Resp BP Pulse Ox 36.9 C 100 16 124/55 H 97 05/04/16 14:56 05/04/16 14:56 05/04/16 14:56 05/04/16 14:56 05/04/16 14:56 Laboratory Results 05/04/16 08:25 05/04/16 08:25 05/03/16 05/04/16 05/05/16 05:59 05:59 05:59 Intake Total 1650 Output Total 50 Balance 1600 PT 27.0 SEC (12.0-15.0) H D 05/04/16 05:10 INR 2.47 (0.83-1.16) H 05/04/16 05:10 chronically ill appearing, mild distress anicteric op clear, HD cath in neck rrr no mrg diffuse wheeze, increased wob, wet cough soft nt nd trace ble edema warm dry well perfused oriented appropriate - Time Spent With Patient Time Spent with Patient: greater than 35 minutes Time Spent with Patient: Greater than 35 minutes spent on this patients care, greater than 50% of time spent counseling, educating, and coordinating care regarding the above mentioned plan. ICD10 Worksheet Patient Problems: Problems Problem Status Diagnosed Inflammatory bowel disease Active Tobacco user Active Fecal impaction Acute 07/03/13 Acute pancreatitis Acute Acute renal failure Acute COPD (chronic obstructive pulmonary disease) case management patient Acute Dehydration, moderate Acute SCLC (small cell lung carcinoma) Acute 02/06/13 Vomiting and diarrhea Acute Chronic obstructive pulmonary disease with acute exacerbation Acute Foot swelling Acute Hypoxia Acute Pleural effusion Acute Shortness of breath Acute Vertigo Acute
[2016-05-04] MEDS ORDERED: PIPERACILLIN/TAZO 2.25 GM/DEX 50 ML IV SCH (18:00)
[2016-05-04] MEDS: HYDROmorphONE/DILAUDID 1 MG/ML SYR IVP PRN (20:05)
[2016-05-04 21:41] LABS: HEPATITIS B SURFACE ANTIBODY NEGATIVE (NEGATIVE)
[2016-05-04] MEDS: PIPERACILLIN/TAZO 2.25 GM/DEX 50 ML IV SCH (22:58)
[2016-05-05] MEDS: ACETYLCYSTEINE 10% 30 ML VIAL IH SCH ×4 (06:00→18:16)
[2016-05-05] MEDS: PIPERACILLIN/TAZO 2.25 GM/DEX 50 ML IV SCH ×3 (06:00→22:37)
[2016-05-05] MEDS: IPRATROPIUM/ALBUTEROL 3 ML DEYVIAL IH SCH ×4 (06:00→22:30)
[2016-05-05 06:19] LABS: ANION GAP 12 mEq/L (8-16); CALCIUM 8.3 mg/dL (8.5-10.4); CARBON DIOXIDE 19 mEq/l (22-31); CHLORIDE 109 mEq/L (97-110); CREATININE 4.9 mg/dL (0.6-1.0); GLOMERULAR FILTRATION RATE 9; GLUCOSE 83 mg/dL (70-100); POTASSIUM 4.8 mEq/L (3.5-5.2); SODIUM 140 mEq/L (134-144)
[2016-05-05 06:54] LABS: % IMMATURE GRANULYOCYTES 0.9 % (0.0-1.1); ABSOLUTE IMMATURE GRANULOCYTES 0.08 10^3/uL (0.00-0.10); ADD DIFF? NO; ADD MORPH? NO; ADD SCAN? NO; ATYPICAL LYMPHOCYTE FLAG 0 (0-99); FRAGMENT RBC FLAG 30 (0-99); HEMATOCRIT 24.5 % (38.0-47.0); LEFT SHIFT FLG 50 (0-99); LIPEMIA HEMOLYSIS FLAG 80 (0-99); MEAN CELL HEMOGLOBIN CONCENTR. 32.7 g/dL (32.4-36.7); MEAN CELL VOLUME 104.3 fL (81.5-99.8); MEAN PLATELET VOLUME 10.5 fL (8.7-11.7); PLATELET CLUMPS FLAG 0 (0-99); PLATELET COUNT 213 10^3/uL (150-400); RED BLOOD CELL COUNT 2.35 10^6/uL (4.18-5.33); RED CELL DISTRIBUTION WIDTH 14.9 % (11.5-15.2)
[2016-05-05] MEDS: oxyCODONE IR 5 MG TAB PO PRN (08:02)
--- NOTE | 2016-05-05 09:06 | SOAPPROG ---
SOAP Progress Note Assessment/Plan: Assessment:Plan: ARF-ATN -anuric -uremic -plan for daily dialysis Access-Temp R SHARON pimentel 05/05/16 09:04 Subjective: encephalopathic Objective: Vital Signs Temp Pulse Resp BP Pulse Ox 36.9 C 99 24 H 132/67 H 94 05/05/16 08:00 05/05/16 08:00 05/05/16 08:00 05/05/16 08:00 05/05/16 08:00 Laboratory Results 05/05/16 04:38 05/05/16 04:38 05/04/16 05/05/16 05/06/16 05:59 05:59 05:59 Intake Total 1650 100 50 Output Total 50 Balance 1600 100 50 PT 27.0 SEC (12.0-15.0) H D 05/04/16 05:10 INR 2.47 (0.83-1.16) H 05/04/16 05:10 Physical Exam - Physical Exam General Appearance: other (encephalopathic) EENT: normal ENT inspection Neck: normal inspection Respiratory: decreased breath sounds Cardiac/Chest: regular rate, rhythm Abdomen: normal bowel sounds, non-tender, soft Skin: normal color Extremities: swelling (trace) ICD10 Worksheet Patient Problems: Problems Problem Status Onset Acute pancreatitis Acute Acute renal failure Acute Inflammatory bowel disease Active Tobacco user Active COPD (chronic obstructive pulmonary disease) case management patient Acute Chronic obstructive pulmonary disease with acute exacerbation Acute Dehydration, moderate Acute Fecal impaction Acute 07/03/13 Foot swelling Acute Hypoxia Acute Pleural effusion Acute SCLC (small cell lung carcinoma) Acute 02/06/13 Shortness of breath Acute Vertigo Acute Vomiting and diarrhea Acute
--- NOTE | 2016-05-05 14:38 | HOSPPROG ---
Hospitalist Progress Note Assessment/Plan: 70 yo F with hx of gallstone pancreatitis s/p recent jules and ERCP presenting with post eus pancreatitis and juan # acute on chronic pancreatitis: patient with hx of chronic calcific pancreatitis s/p cholecystectomy and more recently s/p EGD/EUS with post eus acute pancreatitis. Pain is now relatively more controlled. GI following. No great options for her chronic pancreatitis, usual conservative mgmt for acute panc but limited by anuric JUAN as next. # juan: developing in setting of above and likely ischemic ATN that has not responded to IVF. Renal following for now will require HD, temp HD cath placed. Avoiding nephrotoxins, renally dosing meds. # acute on chronic COPD: with worsening wheeze developing in setting of above as well as increasing wob. CXR with ? pna as next. Added duonebs scheduled, prn albuterol, mucomyst. Respiratory status improved today # acute hypoxic respiratory failure: CXR personally reviewed and concerning for possible infiltrate LLL--atelectasis vs pna, difficult to exclude pna however and will start zosyn for coverage of possible aspiration pna. Tx for copd as above, IS, oob to chair. # acute on chronic anemia: with decrease in h/h since admission without evidence of active bleeding, continue to monitor # acute encephalopathy: patient with some waxing and waning confusion today c/w delerium, possibly related to uremia versus delerium of critical illness # hx of dvt/pe: occurred in 2013, however given hx of malignancy and limited mobility, continues RF for recurrence. Off warfarin INR has been at goal, will need to resume warfarin likely to maintain INR between 2-3. # NSCLC: s/p partial lung resection # Crohn's disease: no e/o exacerbation or other acute issues currently # dispo: IP status, patient in guarded condition that will require ongoing IP care Care plan reviewed with patients family present at bedside. Subjective: no significant overnight events, patient is a bit sleepy and intermittently confused today, breathing seems better, eating a bit of sherbet Objective: Vital Signs Temp Pulse Resp BP Pulse Ox 36.9 C 99 24 H 132/67 H 94 05/05/16 08:00 05/05/16 08:00 05/05/16 08:00 05/05/16 08:00 05/05/16 08:00 Laboratory Results 05/05/16 04:38 05/05/16 04:38 05/04/16 05/05/16 05/06/16 05:59 05:59 05:59 Intake Total 1650 100 50 Output Total 50 Balance 1600 100 50 PT 27.0 SEC (12.0-15.0) H D 05/04/16 05:10 INR 2.47 (0.83-1.16) H 05/04/16 05:10 chronically ill appearing, nad anicteric op clear, HD cath in neck rrr no mrg dec bs throughout soft nt nd trace ble edema warm dry well perfused oriented appropriate ICD10 Worksheet Patient Problems: Problems Problem Status Onset Acute pancreatitis Acute Acute renal failure Acute Inflammatory bowel disease Active Tobacco user Active COPD (chronic obstructive pulmonary disease) case management patient Acute Chronic obstructive pulmonary disease with acute exacerbation Acute Dehydration, moderate Acute Fecal impaction Acute 07/03/13 Foot swelling Acute Hypoxia Acute Pleural effusion Acute SCLC (small cell lung carcinoma) Acute 02/06/13 Shortness of breath Acute Vertigo Acute Vomiting and diarrhea Acute
[2016-05-05] MEDS ORDERED: WARFARIN SODIUM 7.5 MG TAB PO ONE (16:00)
[2016-05-05] MEDS ORDERED: HEPARIN 50,000 UNIT/10 ML VIAL ONE (19:00)
[2016-05-06] MEDS: IPRATROPIUM/ALBUTEROL 3 ML DEYVIAL IH SCH ×4 (05:03→22:11)
[2016-05-06] MEDS: PIPERACILLIN/TAZO 2.25 GM/DEX 50 ML IV SCH ×2 (06:13→16:48)
[2016-05-06] MEDS: ACETYLCYSTEINE 10% 30 ML VIAL IH SCH ×4 (06:17→17:44)
[2016-05-06 07:17] LABS: % IMMATURE GRANULYOCYTES 1.7 % (0.0-1.1); ABSOLUTE IMMATURE GRANULOCYTES 0.14 10^3/uL (0.00-0.10); ADD DIFF? NO; ADD MORPH? NO; ADD SCAN? NO; ATYPICAL LYMPHOCYTE FLAG 0 (0-99); FRAGMENT RBC FLAG 0 (0-99); HEMATOCRIT 24.1 % (38.0-47.0); LEFT SHIFT FLG 30 (0-99); LIPEMIA HEMOLYSIS FLAG 80 (0-99); MEAN CELL HEMOGLOBIN 33.9 pg (27.9-34.1); MEAN CELL HEMOGLOBIN CONCENTR. 33.2 g/dL (32.4-36.7); MEAN CELL VOLUME 102.1 fL (81.5-99.8); MEAN PLATELET VOLUME 9.9 fL (8.7-11.7); PLATELET CLUMPS FLAG 0 (0-99); PLATELET COUNT 210 10^3/uL (150-400); RED BLOOD CELL COUNT 2.36 10^6/uL (4.18-5.33); RED CELL DISTRIBUTION WIDTH 14.6 % (11.5-15.2)
[2016-05-06 07:22] LABS: INR 2.19 (0.83-1.16); PROTIME(PATIENT) 24.5 SEC (12.0-15.0)
[2016-05-06 07:43] LABS: ALBUMIN 2.4 g/dL (3.5-5.0); ANION GAP 10 mEq/L (8-16); CALCIUM 8.5 mg/dL (8.5-10.4); CARBON DIOXIDE 23 mEq/l (22-31); CHLORIDE 102 mEq/L (97-110); CREATININE 3.9 mg/dL (0.6-1.0); GLOMERULAR FILTRATION RATE 11; GLUCOSE 107 mg/dL (70-100); POTASSIUM 3.8 mEq/L (3.5-5.2); SODIUM 135 mEq/L (134-144)
--- NOTE | 2016-05-06 11:11 | SOAPPROG ---
SOAP Progress Note Assessment/Plan: Assessment: 1. JUAN. Likely atn related to pancreatitis. Anuric. Dialyzed yesterday, again today. Azotemia much improved. Will give short run tomorrow of HD and plan to hold on Wednesday. 2. Pancreatitis. Post ERCP, acute on chronic. Supportive care. Tolerating po. Plan: 05/06/16 11:08 05/06/16 11:09 Subjective: Denies pain, n/v. Ate yesterday, planning on eating again this am. Objective: Vital Signs Temp Pulse Resp BP Pulse Ox 37.2 C 87 14 141/68 H 93 05/06/16 08:00 05/06/16 10:56 05/06/16 10:56 05/06/16 08:00 05/06/16 10:56 Laboratory Results 05/06/16 06:50 05/06/16 06:50 05/05/16 05/06/16 05/07/16 05:59 05:59 05:59 Intake Total 100 260 Output Total 25 Balance 100 235 PT 24.5 SEC (12.0-15.0) H 05/06/16 06:50 INR 2.19 (0.83-1.16) H 05/06/16 06:50 Comfortable wf in bed RRR, no m/g/r CTAB Abdom soft, mild LQ tenderness No edema ICD10 Worksheet Patient Problems: Problems Problem Status Onset Acute pancreatitis Acute Acute renal failure Acute Inflammatory bowel disease Active Tobacco user Active COPD (chronic obstructive pulmonary disease) case management patient Acute Chronic obstructive pulmonary disease with acute exacerbation Acute Dehydration, moderate Acute Fecal impaction Acute 07/03/13 Foot swelling Acute Hypoxia Acute Pleural effusion Acute SCLC (small cell lung carcinoma) Acute 02/06/13 Shortness of breath Acute Vertigo Acute Vomiting and diarrhea Acute
--- NOTE | 2016-05-06 14:25 | HOSPPROG ---
Hospitalist Progress Note Assessment/Plan: 70 yo F with hx of gallstone pancreatitis s/p recent jules and ERCP presenting with post eus pancreatitis and linus # acute on chronic pancreatitis: patient with hx of chronic calcific pancreatitis s/p cholecystectomy and more recently s/p EGD/EUS with post eus acute pancreatitis. Acute issues largely resolved. GI involved. # linus: anuric, developing in setting of above and likely ischemic ATN. s/p HD yesterday and planned for again today. Lytes ok. # acute on chronic COPD: improved on current treatment with duonebs scheduled, prn albuterol, mucomyst. With likely concurrent pna leading to exacerbation as next. # acute hypoxic respiratory failure: requiring 3-4L of oxygen to maintain sats in the low 90s, 2/2 above as well as possible pna as next # pna: HCAP versus aspiration with lll infiltrate new since admission, non toxic appearing, treating initially with zosyn, will transition to augmentin # acute on chronic anemia: with decrease in h/h since admission without evidence of active bleeding, continue to monitor # acute encephalopathy: patient with some waxing and waning confusion c/w delerium, possibly related to uremia as now s/p HD has improved # hx of dvt/pe: occurred in 2013, however given hx of malignancy and limited mobility, continues RF for recurrence. Off warfarin INR has been at goal, will need to resume warfarin likely to maintain INR between 2-3. # NSCLC: s/p partial lung resection # Crohn's disease: no e/o exacerbation or other acute issues currently # dispo: IP status, patient in guarded condition that will require ongoing IP care Care plan reviewed with patients family present at bedside. Subjective: no significant overnight events, patient currently feeling a bit better, breathing better Objective: Vital Signs Temp Pulse Resp BP Pulse Ox 37.2 C 87 14 141/68 H 93 05/06/16 08:00 05/06/16 10:56 05/06/16 10:56 05/06/16 08:00 05/06/16 10:56 Laboratory Results 05/06/16 06:50 05/06/16 06:50 05/05/16 05/06/16 05/07/16 05:59 05:59 05:59 Intake Total 100 260 Output Total 25 Balance 100 235 PT 24.5 SEC (12.0-15.0) H 05/06/16 06:50 INR 2.19 (0.83-1.16) H 05/06/16 06:50 chronically ill appearing, nad anicteric op clear, HD cath in neck rrr no mrg dec bs throughout soft nt nd trace ble edema warm dry well perfused oriented appropriate ICD10 Worksheet Patient Problems: Problems Problem Status Onset Acute pancreatitis Acute Acute renal failure Acute Inflammatory bowel disease Active Tobacco user Active COPD (chronic obstructive pulmonary disease) case management patient Acute Chronic obstructive pulmonary disease with acute exacerbation Acute Dehydration, moderate Acute Fecal impaction Acute 07/03/13 Foot swelling Acute Hypoxia Acute Pleural effusion Acute SCLC (small cell lung carcinoma) Acute 02/06/13 Shortness of breath Acute Vertigo Acute Vomiting and diarrhea Acute
--- NOTE | 2016-05-06 15:57 | SOAPPROG ---
[facility] Progress Note Assessment/Plan: Assessment: 1. Post-EUS pancreatitis 2. Chronic calcific pancreatitis 3. JUAN with dialysis requirement 4. Crohns disease 5. Abdominal pain-Epigastric and LUQ Plan: 1. Doing better today. More alert after HD 2. ADAT 3. Starting to have some UOP so hopefully will continue to recover 4. Add Creon with meals 5. No imuran in future given chronic pancreatitis and the risk with this medication. Will need to discuss how to manage her crohn's in near future but would not resume this medication. 05/06/16 15:54 Subjective: CC: Acute on chronic pancreatitis Less, but ongoing upper abdominal pain. More alert today. Eating well. No N/V. Objective: Vital Signs Temp Pulse Resp BP Pulse Ox 37.2 C 87 14 141/68 H 93 05/06/16 08:00 05/06/16 10:56 05/06/16 10:56 05/06/16 08:00 05/06/16 10:56 Laboratory Results 05/06/16 06:50 05/06/16 06:50 05/05/16 05/06/16 05/07/16 05:59 05:59 05:59 Intake Total 100 260 Output Total 25 Balance 100 235 PT 24.5 SEC (12.0-15.0) H 05/06/16 06:50 INR 2.19 (0.83-1.16) H 05/06/16 06:50 Physical Exam - Physical Exam General Appearance: WD/WN, alert, no apparent distress Neck: supple, other (Taiwo catheter right neck normal appearance.) Respiratory: lungs clear, decreased breath sounds Cardiac/Chest: regular rate, rhythm, No systolic murmur Abdomen: soft, other (Mild TTP in epigastrium. ), No distended, No guarding, No rebound Skin: warm/dry, No pallor Neuro/Psych: alert, normal mood/affect ICD10 Worksheet Patient Problems: Problems Problem Status Onset Acute pancreatitis Acute Acute renal failure Acute Inflammatory bowel disease Active Tobacco user Active COPD (chronic obstructive pulmonary disease) case management patient Acute Chronic obstructive pulmonary disease with acute exacerbation Acute Dehydration, moderate Acute Fecal impaction Acute 07/03/13 Foot swelling Acute Hypoxia Acute Pleural effusion Acute SCLC (small cell lung carcinoma) Acute 02/06/13 Shortness of breath Acute Vertigo Acute Vomiting and diarrhea Acute
[2016-05-06] MEDS ORDERED: WARFARIN SODIUM 5 MG TAB PO ONE (16:00)
[2016-05-06] MEDS ORDERED: PIPERACILLIN/TAZO 2.25 GM/DEX 50 ML IV ONE (16:30)
[2016-05-06] MEDS: CREON 24 CAP PO SCH (18:27)
[2016-05-06] MEDS: oxyCODONE IR 5 MG TAB PO PRN (20:04)
[2016-05-06] MEDS: AMOXICILLIN/CLAVULANATE POT 875/125 MG TAB PO SCH (20:05)
[2016-05-07] MEDS: oxyCODONE IR 5 MG TAB PO PRN ×4 (00:30→21:01)
[2016-05-07 05:55] LABS: ABSOLUTE IMMATURE GRANULOCYTES 0.16 10^3/uL (0.00-0.10); ADD DIFF? NO; ADD MORPH? NO; ADD SCAN? NO; ATYPICAL LYMPHOCYTE FLAG 0 (0-99); FRAGMENT RBC FLAG 0 (0-99); HEMOGLOBIN 8.1 g/dL (12.6-16.3); LEFT SHIFT FLG 20 (0-99); LIPEMIA HEMOLYSIS FLAG 90 (0-99); MEAN CELL HEMOGLOBIN 34.6 pg (27.9-34.1); MEAN CELL HEMOGLOBIN CONCENTR. 33.8 g/dL (32.4-36.7); MEAN CELL VOLUME 102.6 fL (81.5-99.8); MEAN PLATELET VOLUME 10.1 fL (8.7-11.7); PLATELET CLUMPS FLAG 0 (0-99); PLATELET COUNT 196 10^3/uL (150-400); RED BLOOD CELL COUNT 2.34 10^6/uL (4.18-5.33); RED CELL DISTRIBUTION WIDTH 14.1 % (11.5-15.2)
[2016-05-07 06:02] LABS: INR 2.48 (0.83-1.16); PROTIME(PATIENT) 27.1 SEC (12.0-15.0)
[2016-05-07] MEDS: IPRATROPIUM/ALBUTEROL 3 ML DEYVIAL IH SCH ×4 (06:05→22:47)
[2016-05-07] MEDS: ACETYLCYSTEINE 10% 30 ML VIAL IH SCH ×5 (06:08→22:46)
[2016-05-07 06:09] LABS: ALBUMIN 2.2 g/dL (3.5-5.0); ANION GAP 8 mEq/L (8-16); CALCIUM 7.9 mg/dL (8.5-10.4); CARBON DIOXIDE 26 mEq/l (22-31); CHLORIDE 102 mEq/L (97-110); CREATININE 3.2 mg/dL (0.6-1.0); GLOMERULAR FILTRATION RATE 14; GLUCOSE 90 mg/dL (70-100); POTASSIUM 3.6 mEq/L (3.5-5.2); SODIUM 136 mEq/L (134-144)
--- NOTE | 2016-05-07 08:27 | SOAPPROG ---
SOAP Progress Note Assessment/Plan: Assessment: 1. JUAN. Likely atn related to pancreatitis. Anuric. Dialyzed Rosalina, yesterday, again today, will rest tomorrow. Azotemia much improved. 2. Pancreatitis. Post ERCP, acute on chronic. Supportive care. Tolerating po. Plan: 05/06/16 11:08 05/06/16 11:09 05/07/16 08:25 Subjective: Sleeping soundly. Objective: Vital Signs Temp Pulse Resp BP Pulse Ox 36.5 C 82 18 134/93 H 96 05/07/16 07:37 05/07/16 07:37 05/07/16 07:37 05/07/16 07:37 05/07/16 07:37 Laboratory Results 05/07/16 05:35 05/07/16 05:35 05/06/16 05/07/16 05/08/16 05:59 05:59 05:59 Intake Total 260 850 Output Total 25 60 Balance 235 790 PT 27.1 SEC (12.0-15.0) H 05/07/16 05:35 INR 2.48 (0.83-1.16) H 05/07/16 05:35 Elderly female in bed, asleep IRIR, no m/g/r CTAB Abdom soft, nt No edema No urine in simmons bag ICD10 Worksheet Patient Problems: Problems Problem Status Onset Acute pancreatitis Acute Acute renal failure Acute Inflammatory bowel disease Active Tobacco user Active COPD (chronic obstructive pulmonary disease) case management patient Acute Chronic obstructive pulmonary disease with acute exacerbation Acute Dehydration, moderate Acute Fecal impaction Acute 07/03/13 Foot swelling Acute Hypoxia Acute Pleural effusion Acute SCLC (small cell lung carcinoma) Acute 02/06/13 Shortness of breath Acute Vertigo Acute Vomiting and diarrhea Acute
[2016-05-07] MEDS: AMOXICILLIN/CLAVULANATE POT 875/125 MG TAB PO SCH (08:50)
[2016-05-07] MEDS: CREON 24 CAP PO SCH ×4 (08:50→21:09)
[2016-05-07] MEDS ORDERED: POLYETHYLENE GLYCOL 3350 17 GM PKT PO PRN (10:29)
[2016-05-07] MEDS ORDERED: BISACODYL 10 MG SUPP PR PRN (10:29)
[2016-05-07] MEDS ORDERED: LACTULOSE 20 GM/30 ML UDCUP PO PRN (10:29)
[2016-05-07] MEDS ORDERED: ALTEPLASE 2 MG VIAL IVP ONE (13:02)
[2016-05-07] MEDS: SENNOSIDES/DOCUSATE SODIUM TAB PO SCH ×2 (15:21→21:01)
[2016-05-07] MEDS ORDERED: WARFARIN SODIUM 7.5 MG TAB PO ONE (16:00)
--- NOTE | 2016-05-07 17:24 | HOSPPROG ---
Hospitalist Progress Note Assessment/Plan: Assessment/Plan: 70 yo F p/w acute pancreatitis c/b JUAN post-EUS # acute on chronic pancreatitis: patient with hx of chronic calcific pancreatitis s/p cholecystectomy and more recently s/p EGD/EUS with post eus acute pancreatitis - ADAT - creon - adding bowel regimen - appreciate GI consult # juan: anuric, developing in setting of above and likely ischemic ATN - requiring HD, ongoing - monitor BMP - appreciate renal consult # acute on chronic COPD: evidenced by diffuse wheezing and resp failure, improved on current treatment with duonebs scheduled, prn albuterol, mucomyst. # acute hypoxic respiratory failure: evidenced by SpO2 87% on 4L NC + objective tachypnea and resp distress/shortness of breath, 2/2 HCAP and COPD exacerbation - requiring 3-4L # possible aspiration pneumonia: treat for possible HCAP organisms, has new infiltrate since admission - zosyn to augmentin # acute on chronic anemia: with decrease in h/h since admission without evidence of active bleeding, continue to monitor # acute encephalopathy: evidenced by global brain dysfunction characterized as waxing and waning confusion, acute change from baseline, 2/2 metabolic effects of uremia - improving w/ HD # hx of dvt/pe: occurred in 2013, however given hx of malignancy and limited mobility, continues RF for recurrence - INR 2.5 # NSCLC: s/p partial lung resection # Crohn's disease: no e/o exacerbation or other acute issues currently diet. renal ppx. high risk, anticoagulated code. full dispo. ADD uncertain, pending clinical resolution of ATN Subjective: Patient reports that her abdominal discomfort has improved, has not been moving her bowels regularly Objective: Vital Signs Temp Pulse Resp BP Pulse Ox 36.5 C 75 18 172/92 H 94 05/07/16 16:00 05/07/16 16:00 05/07/16 16:00 05/07/16 16:00 05/07/16 16:00 Laboratory Results 05/07/16 05:35 05/07/16 05:35 05/06/16 05/07/16 05/08/16 05:59 05:59 05:59 Intake Total 260 850 Output Total 25 60 Balance 235 790 PT 27.1 SEC (12.0-15.0) H 05/07/16 05:35 INR 2.48 (0.83-1.16) H 05/07/16 05:35 - Physical Exam Constitutional: no apparent distress, not in pain, chronically ill appearing, uncomfortable Cardiovascular: systolic murmur (106 systolic at the sternum), No irregularly irregular, No tachycardia, No edema Respiratory: expiratory wheeze, No reduced air movement, No inspiratory crackles , No bronchial breath sounds Gastrointestinal: normoactive bowel sounds, soft, non-tender abdomen, no palpable masses, No distension Neurologic: AAOx3, sensation intact bilaterally, weakness (4/5 motor strength bilateral lower extremity) Psychiatric: interacting appropriately, not anxious, not encephalopathic, thought process linear ICD10 Worksheet Patient Problems: Problems Problem Status Onset Inflammatory bowel disease Active Tobacco user Active SCLC (small cell lung carcinoma) Acute 02/06/13 Fecal impaction Acute 07/03/13 COPD (chronic obstructive pulmonary disease) case management patient Acute Vertigo Acute Pleural effusion Acute Shortness of breath Acute Foot swelling Acute Hypoxia Acute Chronic obstructive pulmonary disease with acute exacerbation Acute Vomiting and diarrhea Acute Dehydration, moderate Acute Acute pancreatitis Acute Acute renal failure Acute
[2016-05-07] MEDS ORDERED: HEPARIN 50,000 UNIT/10 ML VIAL ONE (20:00)
[2016-05-07] MEDS: traZODone 50 MG TAB PO PRN (21:01)
[2016-05-08] MEDS: oxyCODONE IR 5 MG TAB PO PRN ×4 (02:08→16:54)
[2016-05-08] MEDS: IPRATROPIUM/ALBUTEROL 3 ML DEYVIAL IH SCH ×4 (05:33→23:10)
[2016-05-08] MEDS: ACETYLCYSTEINE 10% 30 ML VIAL IH SCH ×3 (05:33→17:17)
[2016-05-08 06:36] LABS: ADD DIFF? YES; ADD MORPH? NO; ADD SCAN? NO; ATYPICAL LYMPHOCYTE FLAG 20 (0-99); FRAGMENT RBC FLAG 0 (0-99); HEMATOCRIT 25.7 % (38.0-47.0); HEMOGLOBIN 8.6 g/dL (12.6-16.3); LEFT SHIFT FLG 40 (0-99); LIPEMIA HEMOLYSIS FLAG 80 (0-99); MEAN CELL HEMOGLOBIN 34.5 pg (27.9-34.1); MEAN CELL HEMOGLOBIN CONCENTR. 33.5 g/dL (32.4-36.7); MEAN CELL VOLUME 103.2 fL (81.5-99.8); MEAN PLATELET VOLUME 10.1 fL (8.7-11.7); PLATELET CLUMPS FLAG 0 (0-99); PLATELET COUNT 176 10^3/uL (150-400); RED BLOOD CELL COUNT 2.49 10^6/uL (4.18-5.33); RED CELL DISTRIBUTION WIDTH 14.1 % (11.5-15.2)
[2016-05-08 06:38] LABS: INR 2.68 (0.83-1.16); PROTIME(PATIENT) 28.8 SEC (12.0-15.0)
[2016-05-08 07:41] LABS: ALBUMIN 2.4 g/dL (3.5-5.0); ANION GAP 9 mEq/L (8-16); CALCIUM 8.1 mg/dL (8.5-10.4); CARBON DIOXIDE 24 mEq/l (22-31); CHLORIDE 99 mEq/L (97-110); CREATININE 3.2 mg/dL (0.6-1.0); GLOMERULAR FILTRATION RATE 14; GLUCOSE 80 mg/dL (70-100); PLATELET ESTIMATE ADEQUATE (ADEQ); POTASSIUM 3.5 mEq/L (3.5-5.2); SODIUM 132 mEq/L (134-144)
[2016-05-08 07:43] LABS: LARGE PLATELETS PRESENT
[2016-05-08] MEDS: CREON 24 CAP PO SCH ×3 (08:58→18:29)
--- NOTE | 2016-05-08 10:34 | SOAPPROG ---
SOAP Progress Note Assessment/Plan: Assessment/Plan: JUAN: likely ATN in the setting of pancreatitis, remains oliguric. - Will plan next HD tomorrow. - Will continue to closely monitor renal parameters for recovery. Metabolic acidosis: improved with HD, will continue to monitor. Anemia: Hgb stable at 8.6, no need for inpt epo at this time. Subjective: No acute events overnight. HD done yesterday, pt tolerated well. She has no complaints other than still being in the hospital. Still oliguric, only about 100ml UOP in simmons bag. Objective: Vital Signs Temp Pulse Resp BP Pulse Ox 36.4 C 85 18 130/87 H 99 05/08/16 07:39 05/08/16 07:39 05/08/16 07:39 05/08/16 07:39 05/08/16 07:39 Laboratory Results 05/08/16 06:20 05/08/16 06:20 05/07/16 05/08/16 05/09/16 05:59 05:59 05:59 Intake Total 850 580 Output Total 60 0 Balance 790 580 PT 28.8 SEC (12.0-15.0) H 05/08/16 06:20 INR 2.68 (0.83-1.16) H 05/08/16 06:20 General: alert and oriented, no acute distress Eyes: EOMI, pERRL OP: Clear CV: RRR Resp: CTA bilat, nonlabored respirations Abd: Soft, NT Ext: trace edema BLE Neuro: CN II-XII grossly intact, no asterixis Psych; cooperative, appropriate mood and affect ICD10 Worksheet Patient Problems: Problems Problem Status Onset Acute pancreatitis Acute Acute renal failure Acute Inflammatory bowel disease Active Tobacco user Active COPD (chronic obstructive pulmonary disease) case management patient Acute Chronic obstructive pulmonary disease with acute exacerbation Acute Dehydration, moderate Acute Fecal impaction Acute 07/03/13 Foot swelling Acute Hypoxia Acute Pleural effusion Acute SCLC (small cell lung carcinoma) Acute 02/06/13 Shortness of breath Acute Vertigo Acute Vomiting and diarrhea Acute
[2016-05-08] MEDS: AMOX/CLAVULANATE 500/125 MG TAB PO SCH (10:39)
[2016-05-08] MEDS: SENNOSIDES/DOCUSATE SODIUM TAB PO SCH ×2 (10:41→22:59)
--- NOTE | 2016-05-08 16:29 | SOAPPROG ---
SOAP Progress Note Assessment/Plan: Assessment: 1. Post-EUS pancreatitis 2. Chronic calcific pancreatitis 3. JUAN with dialysis requirement 4. Crohns disease 5. Abdominal pain-Epigastric and LUQ Plan: 1. Doing better today. More alert after HD 2. Continue Creon with meals 3. No imuran 4. Outpatient GI f/u. Call with questions. 05/08/16 16:27 Subjective: CC: abdominal pain- generalized Acute pancreatitis Much better today. Tolerating renal diet. No HD and Cr stable with some improved UOP. Objective: Vital Signs Temp Pulse Resp BP Pulse Ox 36.6 C 84 18 162/94 H 93 05/08/16 15:42 05/08/16 15:42 05/08/16 15:42 05/08/16 15:42 05/08/16 15:42 Laboratory Results 05/08/16 06:20 05/08/16 06:20 05/07/16 05/08/16 05/09/16 05:59 05:59 05:59 Intake Total 850 580 360 Output Total 60 0 Balance 790 580 360 PT 28.8 SEC (12.0-15.0) H 05/08/16 06:20 INR 2.68 (0.83-1.16) H 05/08/16 06:20 Physical Exam - Physical Exam General Appearance: WD/WN, no apparent distress Neck: other (Catheter Right Jugular) Respiratory: normal breath sounds Cardiac/Chest: regular rate, rhythm, systolic murmur Abdomen: non-tender, soft, No distended, No guarding, No rebound, No ascites ICD10 Worksheet Patient Problems: Problems Problem Status Onset Acute pancreatitis Acute Acute renal failure Acute Inflammatory bowel disease Active Tobacco user Active COPD (chronic obstructive pulmonary disease) case management patient Acute Chronic obstructive pulmonary disease with acute exacerbation Acute Dehydration, moderate Acute Fecal impaction Acute 07/03/13 Foot swelling Acute Hypoxia Acute Pleural effusion Acute SCLC (small cell lung carcinoma) Acute 02/06/13 Shortness of breath Acute Vertigo Acute Vomiting and diarrhea Acute
[2016-05-08] MEDS: WARFARIN SODIUM 7.5 MG TAB PO SCH (16:54)
[2016-05-08] MEDS: ONDANSETRON 4 MG/2 ML VIAL IVP PRN (19:53)
[2016-05-08] MEDS: HYDROmorphONE/DILAUDID 1 MG/ML SYR IVP PRN (20:02)
--- NOTE | 2016-05-08 21:25 | HOSPPROG ---
Hospitalist Progress Note Assessment/Plan: Assessment/Plan: 70 yo F p/w acute pancreatitis c/b JUAN post-EUS # acute on chronic pancreatitis: patient with hx of chronic calcific pancreatitis s/p cholecystectomy and more recently s/p EGD/EUS with post eus acute pancreatitis - ADAT - creon - added bowel regimen - d/w Dr. Muñoz, recs that GIR will follow-up w/ patient as outpt # juan: likely ischemic ATN - requiring HD, ongoing - monitor BMP - d/w Dr. Kulkarni, reports that patient continues to require HD and remains oliguric, but will require close electrolyte monitoring as she will likely experience post-ATN diuresis # acute on chronic COPD: evidenced by diffuse wheezing and resp failure, improved on current treatment with duonebs scheduled, prn albuterol, mucomyst. # acute hypoxic respiratory failure: evidenced by SpO2 87% on 4L NC + objective tachypnea and resp distress/shortness of breath, 2/2 HCAP and COPD exacerbation - requiring 3-4L # possible aspiration pneumonia: treat for possible HCAP organisms, has new infiltrate since admission - zosyn to augmentin # acute on chronic anemia: with decrease in h/h since admission without evidence of active bleeding, continue to monitor # acute encephalopathy: evidenced by global brain dysfunction characterized as waxing and waning confusion, acute change from baseline, 2/2 metabolic effects of uremia - improved w/ HD # hx of dvt/pe: occurred in 2013, however given hx of malignancy and limited mobility, continues RF for recurrence - INR 2.7 # NSCLC: s/p partial lung resection # Crohn's disease: no e/o exacerbation or other acute issues currently diet. renal ppx. high risk, anticoagulated code. full dispo. ADD uncertain, pending clinical resolution of ATN Subjective: reports that abd pain improved, simmons remains in place Objective: Vital Signs Temp Pulse Resp BP Pulse Ox 36.6 C 84 18 162/94 H 93 05/08/16 15:42 05/08/16 15:42 05/08/16 15:42 05/08/16 15:42 05/08/16 15:42 Laboratory Results 05/08/16 06:20 05/08/16 06:20 05/07/16 05/08/16 05/09/16 05:59 05:59 05:59 Intake Total 850 580 460 Output Total 60 0 75 Balance 790 580 385 PT 28.8 SEC (12.0-15.0) H 05/08/16 06:20 INR 2.68 (0.83-1.16) H 05/08/16 06:20 - Physical Exam Constitutional: no apparent distress, not in pain, chronically ill appearing, No uncomfortable Cardiovascular: systolic murmur (I/ at sternum), edema, No irregularly irregular, No tachycardia Respiratory: inspiratory crackles (bilat bases), No reduced air movement, No expiratory wheeze, No bronchial breath sounds Gastrointestinal: normoactive bowel sounds, soft, non-tender abdomen, no palpable masses Neurologic: AAOx3, sensation intact bilaterally, No weakness (motor 5/5 bilat LE ) Psychiatric: interacting appropriately, not anxious, not encephalopathic, thought process linear ICD10 Worksheet Patient Problems: Problems Problem Status Onset Inflammatory bowel disease Active Tobacco user Active SCLC (small cell lung carcinoma) Acute 02/06/13 Fecal impaction Acute 07/03/13 COPD (chronic obstructive pulmonary disease) case management patient Acute Vertigo Acute Pleural effusion Acute Shortness of breath Acute Foot swelling Acute Hypoxia Acute Chronic obstructive pulmonary disease with acute exacerbation Acute Vomiting and diarrhea Acute Dehydration, moderate Acute Acute pancreatitis Acute Acute renal failure Acute
[2016-05-09 05:37] LABS: ALBUMIN 2.3 g/dL (3.5-5.0); ANION GAP 8 mEq/L (8-16); CARBON DIOXIDE 26 mEq/l (22-31); CHLORIDE 99 mEq/L (97-110); CREATININE 4.6 mg/dL (0.6-1.0); GLOMERULAR FILTRATION RATE 9; GLUCOSE 87 mg/dL (70-100); POTASSIUM 3.3 mEq/L (3.5-5.2); SODIUM 133 mEq/L (134-144)
[2016-05-09] MEDS: IPRATROPIUM/ALBUTEROL 3 ML DEYVIAL IH SCH ×4 (05:48→21:50)
[2016-05-09] MEDS ORDERED: POTASSIUM CL 10 MEQ TAB PO ONE (09:04)
--- NOTE | 2016-05-09 09:13 | SOAPPROG ---
SOAP Progress Note Assessment/Plan: Assessment/Plan: JUAN: likely ATN in the setting of pancreatitis. Unclear if she is making more urine than recorded. At this time, her catheter has received tPA but continues to be too positional to use. - Will hold off on HD for now, catheter will need to be changed if further HD needed. For now, will continue to monitor her UOP and lytes closely through the weekend and see if she is recovering. If not, then Wednesday will plan to change line and dialyze. Metabolic acidosis: currently stable even without HD, will continue to monitor. Hypokalemia: K 3.3, Will give KCl 10meq po x1 today and continue to monitor. Anemia: Hgb stable at 8.6, no need for inpt epo at this time. Subjective: No acute events overnight. Pt is unclear how much urine she made in past 24 hours, has appx 100ml in simmons bag this am. She is not sure when it was last emptied. She states her breathing is comfortable, has no complaints. Attempted to do HD today but catheter is quite positional and could not be used. Objective: Vital Signs Temp Pulse Resp BP Pulse Ox 36.8 C 95 18 139/79 H 96 05/09/16 07:28 05/09/16 07:28 05/09/16 07:28 05/09/16 07:28 05/09/16 07:28 Laboratory Results 05/08/16 06:20 05/09/16 05:05 05/08/16 05/09/16 05/10/16 05:59 05:59 05:59 Intake Total 580 960 Output Total 0 75 Balance 580 885 PT 28.8 SEC (12.0-15.0) H 05/08/16 06:20 INR 2.68 (0.83-1.16) H 05/08/16 06:20 ICD10 Worksheet Patient Problems: Problems Problem Status Onset Acute pancreatitis Acute Acute renal failure Acute Inflammatory bowel disease Active Tobacco user Active COPD (chronic obstructive pulmonary disease) case management patient Acute Chronic obstructive pulmonary disease with acute exacerbation Acute Dehydration, moderate Acute Fecal impaction Acute 07/03/13 Foot swelling Acute Hypoxia Acute Pleural effusion Acute SCLC (small cell lung carcinoma) Acute 02/06/13 Shortness of breath Acute Vertigo Acute Vomiting and diarrhea Acute
[2016-05-09] MEDS: CREON 24 CAP PO SCH ×3 (10:10→17:58)
[2016-05-09] MEDS: SENNOSIDES/DOCUSATE SODIUM TAB PO SCH ×2 (10:10→20:52)
[2016-05-09] MEDS: AMOX/CLAVULANATE 500/125 MG TAB PO SCH (10:10)
[2016-05-09] MEDS ORDERED: BISACODYL 5 MG EC TAB PO PRN (10:45)
[2016-05-09] MEDS ORDERED: BISACODYL 5 MG EC TAB PO ONE (10:45)
[2016-05-09] MEDS ORDERED: POLYETHYLENE GLYCOL 3350 17 GM PKT PO PRN (10:45)
--- NOTE | 2016-05-09 13:10 | HOSPPROG ---
Hospitalist Progress Note Assessment/Plan: Assessment/Plan: 70 yo F p/w acute pancreatitis c/b JUAN post-EUS # acute on chronic pancreatitis: patient with hx of chronic calcific pancreatitis s/p cholecystectomy and more recently s/p EGD/EUS with post eus acute pancreatitis - ADAT - creon - added bowel regimen - GIR will follow-up w/ patient as outpt # juan: likely ischemic ATN, remains unclinically resolved w/ rising Cr level today - oliguric, simmons remains in - monitor BMP - d/w Dr. Kulkarni, w/ HD cath not functioning, will hold on HD and monitor lytes, may not need replacement # acute on chronic COPD: evidenced by diffuse wheezing and resp failure, improved on current treatment with duonebs scheduled, prn albuterol, mucomyst. # acute hypoxic respiratory failure: evidenced by SpO2 87% on 4L NC + objective tachypnea and resp distress/shortness of breath, 2/2 HCAP and COPD exacerbation - requiring 3-4L # possible aspiration pneumonia: treat for possible HCAP organisms, has new infiltrate since admission - zosyn to augmentin, total 7 days # acute on chronic anemia: with decrease in h/h since admission without evidence of active bleeding, continue to monitor # acute encephalopathy: evidenced by global brain dysfunction characterized as waxing and waning confusion, acute change from baseline, 2/2 metabolic effects of uremia - improved w/ HD # hx of dvt/pe: occurred in 2013, however given hx of malignancy and limited mobility, continues RF for recurrence - daily INR # NSCLC: s/p partial lung resection # Crohn's disease: no e/o exacerbation or other acute issues currently diet. renal ppx. high risk, anticoagulated code. full dispo. ADD uncertain, pending clinical resolution of ATN Subjective: Patient reports that she is fatigued after not sleeping well last night Objective: Vital Signs Temp Pulse Resp BP Pulse Ox 36.8 C 95 18 139/79 H 96 05/09/16 07:28 05/09/16 07:28 05/09/16 07:28 05/09/16 07:28 05/09/16 07:28 Laboratory Results 05/08/16 06:20 05/09/16 05:05 05/08/16 05/09/16 05/10/16 05:59 05:59 05:59 Intake Total 580 960 Output Total 0 75 Balance 580 885 PT 28.8 SEC (12.0-15.0) H 05/08/16 06:20 INR 2.68 (0.83-1.16) H 05/08/16 06:20 - Physical Exam Constitutional: no apparent distress, not in pain, chronically ill appearing, No uncomfortable Cardiovascular: regular rate and rhythym, no murmur, rub, or gallop, No irregularly irregular, No edema Respiratory: no respiratory distress, no rales or rhonchi, clear to auscultation , No expiratory wheeze, No inspiratory crackles Gastrointestinal: normoactive bowel sounds, soft, non-tender abdomen, no palpable masses, No distension Neurologic: AAOx3, sensation intact bilaterally Psychiatric: interacting appropriately, not anxious, not encephalopathic, thought process linear ICD10 Worksheet Patient Problems: Problems Problem Status Onset Inflammatory bowel disease Active Tobacco user Active SCLC (small cell lung carcinoma) Acute 02/06/13 Fecal impaction Acute 07/03/13 COPD (chronic obstructive pulmonary disease) case management patient Acute Vertigo Acute Pleural effusion Acute Shortness of breath Acute Foot swelling Acute Hypoxia Acute Chronic obstructive pulmonary disease with acute exacerbation Acute Vomiting and diarrhea Acute Dehydration, moderate Acute Acute pancreatitis Acute Acute renal failure Acute
[2016-05-09] MEDS: WARFARIN SODIUM 7.5 MG TAB PO SCH (14:48)
[2016-05-09] MEDS: ONDANSETRON 4 MG/2 ML VIAL IVP PRN ×2 (17:43→20:46)
[2016-05-09] MEDS: ACETAMINOPHEN 325 MG TAB PO PRN ×2 (17:47→23:06)
[2016-05-09] MEDS: oxyCODONE IR 5 MG TAB PO PRN (20:50)
[2016-05-09] MEDS: traZODone 50 MG TAB PO PRN (20:52)
[2016-05-10] MEDS: ACETAMINOPHEN 325 MG TAB PO PRN ×2 (04:59→20:19)
[2016-05-10] MEDS: ONDANSETRON 4 MG/2 ML VIAL IVP PRN (05:00)
[2016-05-10 05:13] LABS: INR 3.89 (0.83-1.16); PROTIME(PATIENT) 38.8 SEC (12.0-15.0)
[2016-05-10 05:34] LABS: ALBUMIN 2.2 g/dL (3.5-5.0); ANION GAP 8 mEq/L (8-16); CALCIUM 7.9 mg/dL (8.5-10.4); CARBON DIOXIDE 25 mEq/l (22-31); CHLORIDE 101 mEq/L (97-110); CREATININE 5.5 mg/dL (0.6-1.0); GLOMERULAR FILTRATION RATE 8; GLUCOSE 81 mg/dL (70-100); POTASSIUM 3.5 mEq/L (3.5-5.2); SODIUM 134 mEq/L (134-144)
[2016-05-10] MEDS: IPRATROPIUM/ALBUTEROL 3 ML DEYVIAL IH SCH ×4 (05:49→20:13)
--- NOTE | 2016-05-10 09:38 | SOAPPROG ---
SOAP Progress Note Assessment/Plan: Assessment/Plan: JUAN: likely ATN in the setting of pancreatitis. At this time, her catheter has received tPA but continues to be too positional to use. However, noted that she is now having increasing UOP, lytes all ok, BUN with very small increase. Cr continues to uptrend. - Will hold off on HD for now, catheter will need to be changed if further HD needed. For now, will continue to monitor her UOP and lytes closely through the weekend and see if she is recovering. If not, then Wednesday will plan to change line and dialyze. Metabolic acidosis: currently stable even without HD, will continue to monitor. Hypokalemia: K 3.5 after being given KCl yesterday, will continue to montior. Subjective: No acute events overnight. Pt states she is feeling well, just very tired and somewhat weak. She had 300ml UOP recorded in past 24 hours. Objective: Vital Signs Temp Pulse Resp BP Pulse Ox 36.5 C 78 16 111/62 92 05/10/16 07:47 05/10/16 07:47 05/10/16 07:47 05/10/16 07:47 05/10/16 07:47 Laboratory Results 05/08/16 06:20 05/10/16 04:45 05/09/16 05/10/16 05/11/16 05:59 05:59 05:59 Intake Total 960 1340 Output Total 75 300 Balance 885 1040 PT 38.8 SEC (12.0-15.0) H D 05/10/16 04:45 INR 3.89 (0.83-1.16) H 05/10/16 04:45 General: alert and oriented, no acute distress Eyes: EOMI, PERRL OP: Clear CV: RRR Resp: CTA bilat, nonlabored respirations on NC Abd: Soft, NT Ext: no edema BLE Neuro: CN II-XII grossly intact, no asterixis Psych: cooperative, appropriate mood and affect Access: RIJ temp cath, not working well ICD10 Worksheet Patient Problems: Problems Problem Status Onset Acute pancreatitis Acute Acute renal failure Acute Inflammatory bowel disease Active Tobacco user Active COPD (chronic obstructive pulmonary disease) case management patient Acute Chronic obstructive pulmonary disease with acute exacerbation Acute Dehydration, moderate Acute Fecal impaction Acute 07/03/13 Foot swelling Acute Hypoxia Acute Pleural effusion Acute SCLC (small cell lung carcinoma) Acute 02/06/13 Shortness of breath Acute Vertigo Acute Vomiting and diarrhea Acute
[2016-05-10] MEDS: CREON 24 CAP PO SCH ×3 (09:57→18:22)
[2016-05-10] MEDS: AMOX/CLAVULANATE 500/125 MG TAB PO SCH (09:58)
[2016-05-10] MEDS: SENNOSIDES/DOCUSATE SODIUM TAB PO SCH ×2 (09:58→20:19)
[2016-05-10] MEDS ORDERED: LACTULOSE 20 GM/30 ML UDCUP PO ONE (11:49)
--- NOTE | 2016-05-10 11:49 | HOSPPROG ---
Hospitalist Progress Note Assessment/Plan: Assessment/Plan: 70 yo F p/w acute pancreatitis c/b JUAN post-EUS # acute on chronic pancreatitis: patient with hx of chronic calcific pancreatitis s/p cholecystectomy and more recently s/p EGD/EUS with post eus acute pancreatitis - ADAT - creon - added bowel regimen - GIR will follow-up w/ patient as outpt # juan: likely ischemic ATN, remains clinically unresolved w/ rising Cr level today - oliguric, simmons remains in (UOP 300/day) - monitor BMP - d/w Dr. Kulkarni, w/ HD cath not functioning, will hold on HD and monitor lytes, may not need replacement # acute on chronic COPD: evidenced by diffuse wheezing and resp failure, improved on current treatment with duonebs scheduled, prn albuterol, mucomyst. # acute hypoxic respiratory failure: evidenced by SpO2 87% on 4L NC + objective tachypnea and resp distress/shortness of breath, 2/2 HCAP and COPD exacerbation - requiring 3-4L # possible aspiration pneumonia: treat for possible HCAP organisms, has new infiltrate since admission - zosyn to augmentin, total 7 days - stop augmentin after today # acute on chronic anemia: with decrease in h/h since admission without evidence of active bleeding, continue to monitor # acute encephalopathy: evidenced by global brain dysfunction characterized as waxing and waning confusion, acute change from baseline, 2/2 metabolic effects of uremia - improved w/ HD # hx of dvt/pe: occurred in 2013, however given hx of malignancy and limited mobility, continues RF for recurrence - d/w pharmacy, reduce coumadin to 2mg today and check INR in AM # NSCLC: s/p partial lung resection # Crohn's disease: no e/o exacerbation or other acute issues currently diet. renal ppx. high risk, anticoagulated code. full dispo. ADD uncertain, pending clinical resolution of ATN Subjective: Patient reports no bowel movement, she is otherwise feeling well Objective: Vital Signs Temp Pulse Resp BP Pulse Ox 36.5 C 78 16 111/62 92 05/10/16 07:47 05/10/16 07:47 05/10/16 07:47 05/10/16 07:47 05/10/16 07:47 Laboratory Results 05/08/16 06:20 05/10/16 04:45 05/09/16 05/10/16 05/11/16 05:59 05:59 05:59 Intake Total 960 1340 Output Total 75 300 Balance 885 1040 PT 38.8 SEC (12.0-15.0) H D 05/10/16 04:45 INR 3.89 (0.83-1.16) H 05/10/16 04:45 - Physical Exam Constitutional: no apparent distress, not in pain, chronically ill appearing, No uncomfortable Cardiovascular: regular rate and rhythym, no murmur, rub, or gallop, other, No tachycardia Respiratory: no respiratory distress, no rales or rhonchi, clear to auscultation Gastrointestinal: soft, non-tender abdomen, no palpable masses, No normoactive bowel sounds (Hypoactive), No guarding, No distension Neurologic: AAOx3, sensation intact bilaterally, No facial droop Psychiatric: interacting appropriately, not anxious, not encephalopathic, thought process linear ICD10 Worksheet Patient Problems: Problems Problem Status Onset Inflammatory bowel disease Active Tobacco user Active SCLC (small cell lung carcinoma) Acute 02/06/13 Fecal impaction Acute 07/03/13 COPD (chronic obstructive pulmonary disease) case management patient Acute Vertigo Acute Pleural effusion Acute Shortness of breath Acute Foot swelling Acute Hypoxia Acute Chronic obstructive pulmonary disease with acute exacerbation Acute Vomiting and diarrhea Acute Dehydration, moderate Acute Acute pancreatitis Acute Acute renal failure Acute
[2016-05-10] MEDS: oxyCODONE IR 5 MG TAB PO PRN (13:25)
[2016-05-10] MEDS ORDERED: WARFARIN SODIUM 2 MG TAB PO SCH (16:00)
[2016-05-10] MEDS ORDERED: WARFARIN SODIUM 5 MG TAB PO SCH (16:00)
[2016-05-10] MEDS: ONDANSETRON DISINTEGRATING 4 MG TAB PO PRN (16:22)
[2016-05-10] MEDS: traZODone 50 MG TAB PO PRN (20:22)
[2016-05-11 04:29] LABS: INR 4.79 (0.83-1.16); PROTIME(PATIENT) 45.9 SEC (12.0-15.0)
[2016-05-11] MEDS: IPRATROPIUM/ALBUTEROL 3 ML DEYVIAL IH SCH ×4 (04:59→21:53)
[2016-05-11 06:17] LABS: INR 4.73 (0.83-1.16); PROTIME(PATIENT) 45.4 SEC (12.0-15.0)
[2016-05-11 06:43] LABS: ALBUMIN 2.4 g/dL (3.5-5.0); ANION GAP 9 mEq/L (8-16); CALCIUM 8.1 mg/dL (8.5-10.4); CARBON DIOXIDE 24 mEq/l (22-31); CHLORIDE 103 mEq/L (97-110); CREATININE 6.9 mg/dL (0.6-1.0); GLOMERULAR FILTRATION RATE 6; GLUCOSE 81 mg/dL (70-100); POTASSIUM 3.5 mEq/L (3.5-5.2); SODIUM 136 mEq/L (134-144)
[2016-05-11] MEDS: CREON 24 CAP PO SCH ×3 (08:39→19:31)
[2016-05-11] MEDS: SENNOSIDES/DOCUSATE SODIUM TAB PO SCH ×2 (08:40→21:02)
--- NOTE | 2016-05-11 09:39 | SOAPPROG ---
SOAP Progress Note Assessment/Plan: Assessment/Plan: JUAN: likely ATN in the setting of pancreatitis. At this time, her catheter has received tPA but continues to be too positional to use. However, noted that she is now having increasing UOP, lytes all ok. Cr, however, continues to uptrend. She is likely close to recovery but still not having clearance. - No emergent need for HD today, will continue to monitor renal parameters daily. - Would recommend changing catheter today in case she does require further dialysis. Metabolic acidosis: currently stable even without HD, will continue to monitor. Hypokalemia: K remains stable at 3.5, will continue to monitor. Subjective: No acute events overnight. Pt had only 75ml UOP recorded overnight, and yet in the past 3 hours she has already had 250ml UOP. She feels tired but otherwise the same. Objective: Vital Signs Temp Pulse Resp BP Pulse Ox 36.9 C 83 16 141/81 H 95 05/11/16 08:00 05/11/16 08:00 05/11/16 08:00 05/11/16 08:00 05/11/16 08:00 Laboratory Results 05/08/16 06:20 05/11/16 05:55 05/10/16 05/11/16 05/12/16 05:59 05:59 05:59 Intake Total 1340 480 Output Total 300 75 Balance 1040 405 PT 45.4 SEC (12.0-15.0) H 05/11/16 05:55 INR 4.73 (0.83-1.16) H 05/11/16 05:55 General: alert and oriented, no acute distress Eyes; EOMI, PERRL OP: Clear CV: RRR Resp: nonlabored respirations on NC Abd: Soft, NT Ext: +1 edema BLE Neuro: CN II-XII grossly intact, no asterixis Psych: cooperative, appropriate mood and affect Access: R IJ temp cath ICD10 Worksheet Patient Problems: Problems Problem Status Onset Acute pancreatitis Acute Acute renal failure Acute Inflammatory bowel disease Active Tobacco user Active COPD (chronic obstructive pulmonary disease) case management patient Acute Chronic obstructive pulmonary disease with acute exacerbation Acute Dehydration, moderate Acute Fecal impaction Acute 07/03/13 Foot swelling Acute Hypoxia Acute Pleural effusion Acute SCLC (small cell lung carcinoma) Acute 02/06/13 Shortness of breath Acute Vertigo Acute Vomiting and diarrhea Acute
[2016-05-11] MEDS ORDERED: PHYTONADIONE 2.5 MG/2.5 ML ORAL UDL PO ONE (09:47)
[2016-05-11] MEDS ORDERED: CEPACOL LOZENGE PO PRN (11:41)
--- NOTE | 2016-05-11 11:41 | HOSPPROG ---
Hospitalist Progress Note Assessment/Plan: Assessment/Plan: 70 yo F p/w acute pancreatitis c/b JUAN post-EUS # acute on chronic pancreatitis: patient with hx of chronic calcific pancreatitis s/p cholecystectomy and more recently s/p EGD/EUS with post eus acute pancreatitis - ADAT - creon - added bowel regimen - GIR will follow-up w/ patient as outpt # juan: likely ischemic ATN, remains clinically unresolved w/ rising Cr level today - oliguric, simmons remains in - monitor BMP - d/w Dr. Kulkarni, w/ HD cath not functioning, will hold on replacement until INR in a safer range (likely tomorrow) # acute on chronic COPD: evidenced by diffuse wheezing and resp failure, improved on current treatment with duonebs scheduled, prn albuterol, mucomyst. # acute hypoxic respiratory failure: evidenced by SpO2 87% on 4L NC + objective tachypnea and resp distress/shortness of breath, 2/2 HCAP and COPD exacerbation - requiring 3-4L # possible aspiration pneumonia: treat for possible HCAP organisms, has new infiltrate since admission - zosyn and augmentin, total 7 days # acute on chronic anemia: with decrease in h/h since admission without evidence of active bleeding, continue to monitor # acute encephalopathy: evidenced by global brain dysfunction characterized as waxing and waning confusion, acute change from baseline, 2/2 metabolic effects of uremia - improved w/ HD # hx of dvt/pe: occurred in 2013, however given hx of malignancy and limited mobility, continues RF for recurrence - hold coumadin today, give vit K for rising level and need to place HD cath # NSCLC: s/p partial lung resection # Crohn's disease: no e/o exacerbation or other acute issues currently diet. renal ppx. high risk, anticoagulated code. full dispo. ADD uncertain, pending clinical resolution of ATN Subjective: Patient reports she is feeling well and she is reading people magazine articles about Whitney Sanders Objective: Vital Signs Temp Pulse Resp BP Pulse Ox 36.9 C 83 16 141/81 H 95 05/11/16 08:00 05/11/16 08:00 05/11/16 08:00 05/11/16 08:00 05/11/16 08:00 Laboratory Results 05/08/16 06:20 05/11/16 05:55 05/10/16 05/11/16 05/12/16 05:59 05:59 05:59 Intake Total 1340 480 Output Total 300 75 Balance 1040 405 PT 45.4 SEC (12.0-15.0) H 05/11/16 05:55 INR 4.73 (0.83-1.16) H 05/11/16 05:55 - Physical Exam Constitutional: no apparent distress, not in pain, chronically ill appearing, No uncomfortable Cardiovascular: systolic murmur (I/ at sternum), edema (trace bilat LE), No irregularly irregular, No tachycardia Respiratory: no respiratory distress, no rales or rhonchi, clear to auscultation Gastrointestinal: normoactive bowel sounds, soft, non-tender abdomen, no palpable masses Neurologic: AAOx3, sensation intact bilaterally Psychiatric: interacting appropriately, not anxious, not encephalopathic, thought process linear ICD10 Worksheet Patient Problems: Problems Problem Status Onset Inflammatory bowel disease Active Tobacco user Active SCLC (small cell lung carcinoma) Acute 02/06/13 Fecal impaction Acute 07/03/13 COPD (chronic obstructive pulmonary disease) case management patient Acute Vertigo Acute Pleural effusion Acute Shortness of breath Acute Foot swelling Acute Hypoxia Acute Chronic obstructive pulmonary disease with acute exacerbation Acute Vomiting and diarrhea Acute Dehydration, moderate Acute Acute pancreatitis Acute Acute renal failure Acute
[2016-05-11] MEDS ORDERED: WARFARIN SODIUM 5 MG TAB PO SCH (16:00)
[2016-05-11] MEDS: ACETAMINOPHEN 325 MG TAB PO PRN ×2 (16:38→21:01)
[2016-05-11] MEDS: oxyCODONE IR 5 MG TAB PO PRN ×2 (16:39→21:01)
[2016-05-11] MEDS: traZODone 50 MG TAB PO PRN (21:01)
[2016-05-12 04:47] LABS: INR 1.7 (0.83-1.16)
[2016-05-12 04:49] LABS: ALBUMIN 2.4 g/dL (3.5-5.0); ANION GAP 11 mEq/L (8-16); CARBON DIOXIDE 23 mEq/l (22-31); CHLORIDE 103 mEq/L (97-110); GLOMERULAR FILTRATION RATE 5; GLUCOSE 79 mg/dL (70-100); POTASSIUM 3.5 mEq/L (3.5-5.2); SODIUM 137 mEq/L (134-144)
[2016-05-12 04:54] LABS: CREATININE 7.9 mg/dL (0.6-1.0)
[2016-05-12] MEDS: IPRATROPIUM/ALBUTEROL 3 ML DEYVIAL IH SCH ×4 (04:58→22:11)
[2016-05-12] MEDS: CREON 24 CAP PO SCH ×3 (09:51→17:41)
[2016-05-12] MEDS: SENNOSIDES/DOCUSATE SODIUM TAB PO SCH ×2 (09:52→19:23)
--- NOTE | 2016-05-12 14:48 | HOSPPROG ---
Hospitalist Progress Note Assessment/Plan: INTERVAL SUMMARY & DAILY PROGRESS NOTE DATE OF ADMISSION:05/02/2016 INTERVAL DIAGNOSES 1. Acute kidney injury, ischemic ATN 2. acute on chronic pancreatitis 3. acute COPD exacerbation 4. Acute hypoxic respiratory failure 5. Possible aspiration pneumonia 6. Acute encephalopathy 7. Acute on chronic anemia 8. history of DVT/PE 9. Non-small cell lung cancer 10. Crohn's disease CONSULTATIONS gastroenterology, Nephrology PROCEDURES / IMAGING 05/04/2016 dialysis access catheter placement CHIEF COMPLAINT acute abdominal pain, oliguria SUBJECTIVE patient reports that she is feeling well today, reading about [facility] HOSPITAL COURSE BY PROBLEM Patient presented with acute on chronic pancreatitis and acute kidney injury secondary to ischemic acute tubular necrosis. She has required dialysis catheter placement and dialysis during this interval. She remains oliguric, and she will most likely require at least 1 more dialysis treatment. Her dialysis catheter clotted, and she is having the catheter replaced today. We are monitoring her electrolytes closely and awaiting renal recovery prior to discharge. The patient will most likely experience post ATN diuresis and may require aggressive electrolyte repletion at that time. Assessment/Plan: 70 yo F p/w acute pancreatitis c/b JUAN post-EUS # acute on chronic pancreatitis: patient with hx of chronic calcific pancreatitis s/p cholecystectomy and more recently s/p EGD/EUS with post eus acute pancreatitis - ADAT - creon - added bowel regimen - GIR will follow-up w/ patient as outpt, they have signed off # juan: likely ischemic ATN, remains clinically unresolved w/ rising Cr level today and rising phosphorus level - oliguric, simmons remains in - monitor BMP - d/w Dr. Hendrix, w/ HD cath not functioning, exchange dialysis catheter today and plan on hemodialysis tomorrow # acute on chronic COPD: evidenced by diffuse wheezing and resp failure, improved on current treatment with duonebs scheduled, prn albuterol, mucomyst. # acute hypoxic respiratory failure: evidenced by SpO2 87% on 4L NC + objective tachypnea and resp distress/shortness of breath, 2/2 HCAP and COPD exacerbation - requiring 3-4L # possible aspiration pneumonia: treat for possible HCAP organisms, has new infiltrate since admission - status post zosyn and augmentin, total 7 days # acute on chronic anemia: with decrease in h/h since admission without evidence of active bleeding, continue to monitor # acute encephalopathy: evidenced by global brain dysfunction characterized as waxing and waning confusion, acute change from baseline, 2/2 metabolic effects of uremia - improved w/ HD # hx of dvt/pe: occurred in 2013, however given hx of malignancy and limited mobility, continues RF for recurrence - given vit K and held coumadin 05/10 for supratherapeutic INR and HD cath needing placement - restart coumadin today, daily INR monitoring # NSCLC: s/p partial lung resection # Crohn's disease: no e/o exacerbation or other acute issues currently diet. renal, advance to regular as soon as renal recovery evident given her poor oral intake on renal diet ppx. high risk, SCDs today w/ INR < 2 code. full dispo. ADD uncertain, pending clinical resolution of ATN Subjective: patient reports that she is feeling well, no pain, had bowel movement Objective: Vital Signs Temp Pulse Resp BP Pulse Ox 36.6 C 78 16 128/64 H 98 05/12/16 08:00 05/12/16 11:00 05/12/16 11:00 05/12/16 08:00 05/12/16 11:00 Laboratory Results 05/08/16 06:20 05/12/16 04:30 05/11/16 05/12/16 05/13/16 05:59 05:59 05:59 Intake Total 480 980 Output Total 75 500 Balance 405 480 PT 20.0 SEC (12.0-15.0) H D 05/12/16 04:30 INR 1.70 (0.83-1.16) H 05/12/16 04:30 - Physical Exam Constitutional: no apparent distress, not in pain, chronically ill appearing, No uncomfortable Cardiovascular: systolic murmur ( 2/6 at the sternum), edema ( trace bilateral lower extremity), No irregularly irregular, No bradycardia Respiratory: no respiratory distress, no rales or rhonchi, clear to auscultation Gastrointestinal: normoactive bowel sounds, soft, non-tender abdomen, no palpable masses Genitourinary: simmons in urethra Neurologic: AAOx3, sensation intact bilaterally Psychiatric: interacting appropriately, not anxious, not encephalopathic, thought process linear ICD10 Worksheet Patient Problems: Problems Problem Status Onset Acute pancreatitis Acute Acute renal failure Acute Inflammatory bowel disease Active Tobacco user Active COPD (chronic obstructive pulmonary disease) case management patient Acute Chronic obstructive pulmonary disease with acute exacerbation Acute Dehydration, moderate Acute Fecal impaction Acute 07/03/13 Foot swelling Acute Hypoxia Acute Pleural effusion Acute SCLC (small cell lung carcinoma) Acute 02/06/13 Shortness of breath Acute Vertigo Acute Vomiting and diarrhea Acute
--- NOTE | 2016-05-12 14:52 | SOAPPROG ---
SOAP Progress Note Assessment/Plan: Assessment: JUAN, creat still creeping up No urgent HD needs, but may need in the near future UOP picking up as well Acute pancreatitis: tolerating PO better today Plan: No urgent HD needs change out HD cath as current cath not working continue to follow lytes vol and renal function 05/12/16 14:49 Subjective: Up to chair Feeling better each day no abd pain nausea or vomiting tolerated PO earlier today no cp or sob Objective: Vital Signs Temp Pulse Resp BP Pulse Ox 36.6 C 78 16 128/64 H 98 05/12/16 08:00 05/12/16 11:00 05/12/16 11:00 05/12/16 08:00 05/12/16 11:00 Laboratory Results 05/08/16 06:20 05/12/16 04:30 05/11/16 05/12/16 05/13/16 05:59 05:59 05:59 Intake Total 480 980 Output Total 75 500 Balance 405 480 PT 20.0 SEC (12.0-15.0) H D 05/12/16 04:30 INR 1.70 (0.83-1.16) H 05/12/16 04:30 Physical Exam - Physical Exam General Appearance: alert Respiratory: No rhonchi, No wheezing Cardiac/Chest: regular rate, rhythm, edema (trace), No gallop, No friction rub Abdomen: normal bowel sounds, non-tender, soft Extremities: non-tender, swelling (trace) Neuro/Psych: alert, normal mood/affect, oriented x 3 ICD10 Worksheet Patient Problems: Problems Problem Status Onset Acute pancreatitis Acute Acute renal failure Acute Inflammatory bowel disease Active Tobacco user Active COPD (chronic obstructive pulmonary disease) case management patient Acute Chronic obstructive pulmonary disease with acute exacerbation Acute Dehydration, moderate Acute Fecal impaction Acute 07/03/13 Foot swelling Acute Hypoxia Acute Pleural effusion Acute SCLC (small cell lung carcinoma) Acute 02/06/13 Shortness of breath Acute Vertigo Acute Vomiting and diarrhea Acute
[2016-05-12] MEDS: WARFARIN SODIUM 5 MG TAB PO SCH (17:41)
[2016-05-12] MEDS ORDERED: HEPARIN 50,000 UNIT/10 ML VIAL ONE (18:26)
[2016-05-12] MEDS: ACETAMINOPHEN 325 MG TAB PO PRN (19:24)
[2016-05-12] MEDS: oxyCODONE IR 5 MG TAB PO PRN ×2 (19:24→21:29)
[2016-05-12] MEDS: ONDANSETRON 4 MG/2 ML VIAL IVP PRN (22:21)
[2016-05-12] MEDS: traZODone 50 MG TAB PO PRN (22:40)
[2016-05-13 05:36] LABS: INR 1.22 (0.83-1.16); PROTIME(PATIENT) 15.4 SEC (12.0-15.0)
[2016-05-13] MEDS: IPRATROPIUM/ALBUTEROL 3 ML DEYVIAL IH SCH ×3 (05:40→18:33)
[2016-05-13 05:52] LABS: ALBUMIN 2.6 g/dL (3.5-5.0); ANION GAP 13 mEq/L (8-16); CALCIUM 8.4 mg/dL (8.5-10.4); CARBON DIOXIDE 24 mEq/l (22-31); CHLORIDE 102 mEq/L (97-110); CREATININE 8.4 mg/dL (0.6-1.0); GLOMERULAR FILTRATION RATE 5; GLUCOSE 79 mg/dL (70-100); SODIUM 139 mEq/L (134-144)
[2016-05-13] MEDS: ONDANSETRON 4 MG/2 ML VIAL IVP PRN (09:18)
[2016-05-13] MEDS: CREON 24 CAP PO SCH ×3 (09:19→17:07)
[2016-05-13] MEDS: SENNOSIDES/DOCUSATE SODIUM TAB PO SCH ×2 (09:20→20:40)
--- NOTE | 2016-05-13 10:15 | HOSPPROG ---
Hospitalist Progress Note Assessment/Plan: # acute on chronic pancreatitis: patient with hx of chronic calcific pancreatitis s/p cholecystectomy and more recently s/p EGD/EUS with post eus acute pancreatitis - ON a Renal diet, tolerating well - creon - added bowel regimen - GI will follow-up w/ patient as outpt, they have signed off # linus: likely ischemic ATN, remains clinically unresolved w/ rising Cr level today - Some UOP - monitor BMP - Decision on HD per Nephrology # acute on chronic COPD: evidenced by diffuse wheezing and resp failure, improved on current treatment with duonebs scheduled, prn albuterol, mucomyst. # acute hypoxic respiratory failure: evidenced by SpO2 87% on 4L NC + objective tachypnea and resp distress/shortness of breath, 2/2 HCAP and COPD exacerbation - requiring 2-4L # possible aspiration pneumonia: treat for possible HCAP organisms, has new infiltrate since admission - status post zosyn and augmentin, total 7 days # acute on chronic anemia: with decrease in h/h since admission without evidence of active bleeding, continue to monitor # acute encephalopathy: evidenced by global brain dysfunction characterized as waxing and waning confusion, acute change from baseline, 2/2 metabolic effects of uremia - improved w/ HD # hx of dvt/pe: occurred in 2013, however given hx of malignancy and limited mobility, continues RF for recurrence - given vit K and held coumadin 05/10 for supratherapeutic INR and HD cath needing placement - restart coumadin today, daily INR monitoring # NSCLC: s/p partial lung resection # Crohn's disease: no e/o exacerbation or other acute issues currently diet. renal, advance to regular as soon as renal recovery evident given her poor oral intake on renal diet ppx. high risk, SCDs today w/ INR < 2 code. full dispo. ADD uncertain, pending clinical resolution of ATN S: Feels about the same Cr. has increased making some urine O: VSS NAD AAOX3 RRR DECREASED LUNG SOUNDS S/NT/ND NO EDEMA LABS REVIEWED Objective: Vital Signs Temp Pulse Resp BP Pulse Ox 36.8 C 77 16 137/86 H 94 05/13/16 07:55 05/13/16 07:55 05/13/16 07:55 05/13/16 07:55 05/13/16 07:55 Laboratory Results 05/08/16 06:20 05/13/16 05:00 05/12/16 05/13/16 05/14/16 05:59 05:59 05:59 Intake Total 980 840 Output Total 500 750 Balance 480 90 PT 15.4 SEC (12.0-15.0) H 05/13/16 05:00 INR 1.22 (0.83-1.16) H 05/13/16 05:00 ICD10 Worksheet Patient Problems: Problems Problem Status Onset Acute pancreatitis Acute Acute renal failure Acute Inflammatory bowel disease Active Tobacco user Active COPD (chronic obstructive pulmonary disease) case management patient Acute Chronic obstructive pulmonary disease with acute exacerbation Acute Dehydration, moderate Acute Fecal impaction Acute 07/03/13 Foot swelling Acute Hypoxia Acute Pleural effusion Acute SCLC (small cell lung carcinoma) Acute 02/06/13 Shortness of breath Acute Vertigo Acute Vomiting and diarrhea Acute
--- NOTE | 2016-05-13 16:03 | SOAPPROG ---
SOAP Progress Note Assessment/Plan: Assessment: 1. arf: atn, now with increasing uo but creat still rising. Suspect will plateau in next day or two but will tentatively plan to dialyze tomorrow for azotemia unless improving. Lytes and volume status both appear stable. 2. Pancreatitis: symptomatically improved. Plan: 05/03/16 16:22 05/13/16 16:00 Subjective: No particular c/o aside from diet. Objective: Vital Signs Temp Pulse Resp BP Pulse Ox 36.7 C 71 16 137/66 H 96 05/13/16 15:32 05/13/16 15:32 05/13/16 15:32 05/13/16 15:32 05/13/16 15:32 Laboratory Results 05/08/16 06:20 05/13/16 05:00 05/12/16 05/13/16 05/14/16 05:59 05:59 05:59 Intake Total 980 840 230 Output Total 500 750 150 Balance 480 90 80 PT 15.4 SEC (12.0-15.0) H 05/13/16 05:00 INR 1.22 (0.83-1.16) H 05/13/16 05:00 Physical Exam - Physical Exam General Appearance: no apparent distress Respiratory: lungs clear (ant/lat) Cardiac/Chest: regular rate, rhythm Abdomen: soft (mild epigstric tenderness) Extremities: pedal edema (none) ICD10 Worksheet Patient Problems: Problems Problem Status Onset Acute pancreatitis Acute Acute renal failure Acute Inflammatory bowel disease Active Tobacco user Active COPD (chronic obstructive pulmonary disease) case management patient Acute Chronic obstructive pulmonary disease with acute exacerbation Acute Dehydration, moderate Acute Fecal impaction Acute 07/03/13 Foot swelling Acute Hypoxia Acute Pleural effusion Acute SCLC (small cell lung carcinoma) Acute 02/06/13 Shortness of breath Acute Vertigo Acute Vomiting and diarrhea Acute
[2016-05-13] MEDS: WARFARIN SODIUM 5 MG TAB PO SCH (17:07)
[2016-05-13] MEDS: oxyCODONE IR 5 MG TAB PO PRN (20:40)
[2016-05-14] MEDS: oxyCODONE IR 5 MG TAB PO PRN ×4 (02:03→19:22)
[2016-05-14] MEDS: IPRATROPIUM/ALBUTEROL 3 ML DEYVIAL IH SCH ×4 (04:54→17:31)
[2016-05-14 07:01] LABS: % IMMATURE GRANULYOCYTES 1.3 % (0.0-1.1); ABSOLUTE IMMATURE GRANULOCYTES 0.09 10^3/uL (0.00-0.10); ADD DIFF? NO; ADD MORPH? NO; ADD SCAN? NO; ATYPICAL LYMPHOCYTE FLAG 20 (0-99); FRAGMENT RBC FLAG 0 (0-99); HEMATOCRIT 21.8 % (38.0-47.0); HEMOGLOBIN 7.2 g/dL (12.6-16.3); LEFT SHIFT FLG 10 (0-99); LIPEMIA HEMOLYSIS FLAG 80 (0-99); MEAN CELL HEMOGLOBIN 34.3 pg (27.9-34.1); MEAN CELL VOLUME 103.8 fL (81.5-99.8); MEAN PLATELET VOLUME 10.6 fL (8.7-11.7); PLATELET CLUMPS FLAG 0 (0-99); PLATELET COUNT 246 10^3/uL (150-400); RED CELL DISTRIBUTION WIDTH 14.8 % (11.5-15.2)
[2016-05-14 07:09] LABS: INR 1.2 (0.83-1.16); PROTIME(PATIENT) 15.2 SEC (12.0-15.0)
[2016-05-14 07:33] LABS: ALBUMIN 2.7 g/dL (3.5-5.0); ANION GAP 12 mEq/L (8-16); CALCIUM 8.3 mg/dL (8.5-10.4); CARBON DIOXIDE 22 mEq/l (22-31); CHLORIDE 106 mEq/L (97-110); GLOMERULAR FILTRATION RATE 5; GLUCOSE 78 mg/dL (70-100); POTASSIUM 3.9 mEq/L (3.5-5.2); SODIUM 140 mEq/L (134-144)
[2016-05-14 07:36] LABS: CREATININE 8.4 mg/dL (0.6-1.0)
[2016-05-14] MEDS: CREON 24 CAP PO SCH ×3 (08:54→18:11)
[2016-05-14] MEDS: SENNOSIDES/DOCUSATE SODIUM TAB PO SCH ×2 (08:55→20:51)
--- NOTE | 2016-05-14 11:38 | SOAPPROG ---
SOAP Progress Note Assessment/Plan: Assessment/Plan: JUAN: likely ATN in the setting of pancreatitis. Cr has finally plateaued today at 8.4, good UOP now and increasing, lytes all ok. - No emergent need for HD today, will continue to monitor renal parameters daily. - Hopefully will not require further HD. - Avoid MOM, morphine, demerol, NSAIDs, contrast, aminoglycosides, fleets, and other nephrotoxins. Metabolic acidosis: currently stable even without HD, will continue to monitor. Hypokalemia: K remains stable without HD, will continue to monitor. Subjective: No acute events overnight. Pt with increasing UOP, feeling well. Objective: Vital Signs Temp Pulse Resp BP Pulse Ox 36.8 C 76 18 127/67 H 96 05/14/16 08:00 05/14/16 08:00 05/14/16 08:00 05/14/16 08:00 05/14/16 08:00 Laboratory Results 05/14/16 06:00 05/14/16 06:00 05/13/16 05/14/16 05/15/16 05:59 05:59 05:59 Intake Total 840 230 120 Output Total 750 1650 Balance 90 -1420 120 PT 15.2 SEC (12.0-15.0) H 05/14/16 06:00 INR 1.20 (0.83-1.16) H 05/14/16 06:00 General: alert and oriented, no acute distress Eyes: EOMI, PERRL OP: Clear CV: RRR Resp: CTA bilat, nonlabored respirations on NC Abd: Soft, NT Ext: +1 edema BLE Neuro: CN II-XII grossly intact,no asterixis Psych: cooperative, appropriate mood and affect Access: R IJ temp cath ICD10 Worksheet Patient Problems: Problems Problem Status Onset Acute pancreatitis Acute Acute renal failure Acute Inflammatory bowel disease Active Tobacco user Active COPD (chronic obstructive pulmonary disease) case management patient Acute Chronic obstructive pulmonary disease with acute exacerbation Acute Dehydration, moderate Acute Fecal impaction Acute 07/03/13 Foot swelling Acute Hypoxia Acute Pleural effusion Acute SCLC (small cell lung carcinoma) Acute 02/06/13 Shortness of breath Acute Vertigo Acute Vomiting and diarrhea Acute
--- NOTE | 2016-05-14 12:12 | HOSPPROG ---
Hospitalist Progress Note Assessment/Plan: I/P # acute on chronic pancreatitis: patient with hx of chronic calcific pancreatitis s/p cholecystectomy and more recently s/p EGD/EUS with post eus acute pancreatitis - ON a Renal diet, tolerating well - Pancreatic enzymes - GI will follow-up w/ patient as outpt, they have signed off # linus: likely ischemic ATN, remains clinically unresolved w/ rising Cr level today - better UOP - monitor BMP - Decision on HD per Nephrology. No urgent needs today. # acute on chronic COPD: evidenced by diffuse wheezing and resp failure, improved on current treatment with duonebs scheduled, prn albuterol, mucomyst. # acute hypoxic respiratory failure: evidenced by SpO2 87% on 4L NC + objective tachypnea and resp distress/shortness of breath, 2/2 HCAP and COPD exacerbation - requiring 2-4L # possible aspiration pneumonia: treat for possible HCAP organisms, has new infiltrate since admission - status post zosyn and augmentin, total 7 days # acute on chronic anemia: -Etiology is unclear. There is no evidence of acute blood loss. No reported melena or blood per rectum per nursing -Will hold coumadin today -If further drop, transfuse PRN -Anemia w/u to include iron studies, B12, and Folate -Occult blood check if further drop in Hgb # acute encephalopathy: evidenced by global brain dysfunction characterized as waxing and waning confusion, acute change from baseline, 2/2 metabolic effects of uremia - improved w/ HD # hx of dvt/pe: occurred in 2013, however given hx of malignancy and limited mobility, continues RF for recurrence - given vit K and held coumadin 05/10 for supratherapeutic INR and HD cath needing placement on admission - coumadin restarted 05/13, INR is low. Given drop in Hgb will hold coumadin. Check LE US to determine clots. # NSCLC: s/p partial lung resection # Crohn's disease: no e/o exacerbation or other acute issues currently diet. renal, advance to regular as soon as renal recovery evident given her poor oral intake on renal diet ppx. high risk, SCDs today w/ INR < 2 code. full dispo. ADD uncertain, pending clinical resolution of ATN, stable Hgb S: Feels about the same Cr. has increased Urine output increasing Hgb is down O: VSS NAD AAOX3 RRR DECREASED LUNG SOUNDS S/NT/ND NO EDEMA LABS REVIEWED Objective: Vital Signs Temp Pulse Resp BP Pulse Ox 36.8 C 76 18 127/67 H 96 05/14/16 08:00 05/14/16 08:00 05/14/16 08:00 05/14/16 08:00 05/14/16 08:00 Laboratory Results 05/14/16 06:00 05/14/16 06:00 05/13/16 05/14/16 05/15/16 05:59 05:59 05:59 Intake Total 840 230 120 Output Total 750 1650 Balance 90 -1420 120 PT 15.2 SEC (12.0-15.0) H 05/14/16 06:00 INR 1.20 (0.83-1.16) H 05/14/16 06:00 - Time Spent With Patient Time Spent with Patient: greater than 35 minutes Time Spent with Patient: Greater than 35 minutes spent on this patients care, greater than 50% of time spent counseling, educating, and coordinating care regarding the above mentioned plan. ICD10 Worksheet Patient Problems: Problems Problem Status Onset Acute pancreatitis Acute Acute renal failure Acute Inflammatory bowel disease Active Tobacco user Active COPD (chronic obstructive pulmonary disease) case management patient Acute Chronic obstructive pulmonary disease with acute exacerbation Acute Dehydration, moderate Acute Fecal impaction Acute 07/03/13 Foot swelling Acute Hypoxia Acute Pleural effusion Acute SCLC (small cell lung carcinoma) Acute 02/06/13 Shortness of breath Acute Vertigo Acute Vomiting and diarrhea Acute
[2016-05-14] MEDS ORDERED: HEPARIN SC SCH (14:00)
[2016-05-14] MEDS: HEPARIN 5,000 UNIT/0.5 ML SYR SC SCH ×2 (14:15→21:46)
[2016-05-14] MEDS: ACETAMINOPHEN 325 MG TAB PO PRN (14:49)
[2016-05-14] MEDS: ONDANSETRON DISINTEGRATING 4 MG TAB PO PRN (20:56)
[2016-05-15] MEDS: ONDANSETRON DISINTEGRATING 4 MG TAB PO PRN (03:07)
[2016-05-15 05:29] LABS: % IMMATURE GRANULYOCYTES 0.9 % (0.0-1.1); ABSOLUTE IMMATURE GRANULOCYTES 0.07 10^3/uL (0.00-0.10); ADD DIFF? NO; ADD MORPH? NO; ADD SCAN? NO; ATYPICAL LYMPHOCYTE FLAG 0 (0-99); FRAGMENT RBC FLAG 0 (0-99); HEMATOCRIT 22.6 % (38.0-47.0); HEMOGLOBIN 7.4 g/dL (12.6-16.3); LEFT SHIFT FLG 10 (0-99); LIPEMIA HEMOLYSIS FLAG 80 (0-99); MEAN CELL HEMOGLOBIN CONCENTR. 32.7 g/dL (32.4-36.7); MEAN CELL VOLUME 100.9 fL (81.5-99.8); MEAN PLATELET VOLUME 10.3 fL (8.7-11.7); PLATELET CLUMPS FLAG 0 (0-99); PLATELET COUNT 277 10^3/uL (150-400); RED BLOOD CELL COUNT 2.24 10^6/uL (4.18-5.33); RED CELL DISTRIBUTION WIDTH 14.6 % (11.5-15.2)
[2016-05-15 05:34] LABS: ANION GAP 13 mEq/L (8-16); CALCIUM 8.7 mg/dL (8.5-10.4); CARBON DIOXIDE 24 mEq/l (22-31); CHLORIDE 105 mEq/L (97-110); GLOMERULAR FILTRATION RATE 5; GLUCOSE 86 mg/dL (70-100); POTASSIUM 4.2 mEq/L (3.5-5.2); SODIUM 142 mEq/L (134-144)
[2016-05-15] MEDS: HEPARIN 5,000 UNIT/0.5 ML SYR SC SCH ×3 (05:34→20:56)
[2016-05-15 05:37] LABS: CREATININE 7.8 mg/dL (0.6-1.0)
[2016-05-15 05:42] LABS: % SATURATION 23 % (20-55); TOTAL IRON BINDING CAPACITY 218 ug/dL (260-490)
[2016-05-15 05:45] LABS: INR 1.26 (0.83-1.16); PROTIME(PATIENT) 15.8 SEC (12.0-15.0)
[2016-05-15] MEDS: IPRATROPIUM/ALBUTEROL 3 ML DEYVIAL IH SCH ×2 (06:24)
[2016-05-15] MEDS: CREON 24 CAP PO SCH ×3 (08:19→18:02)
[2016-05-15] MEDS: SENNOSIDES/DOCUSATE SODIUM TAB PO SCH ×2 (08:20→20:55)
--- NOTE | 2016-05-15 10:42 | SOAPPROG ---
SOAP Progress Note Assessment/Plan: Assessment: 1. JUAN Now non oliguric. Cr starting to fall. She looks really good. Leave HD cath and simmons in for now, but consider dc'ing this weekend. Can DC renal diet. 2. Anemia Stable 3. Pancreatitis Advancing diet, improving 05/15/16 10:39 Subjective: Doing pretty well. Objective: Vital Signs Temp Pulse Resp BP Pulse Ox 36.8 C 78 16 151/81 H 98 05/15/16 06:58 05/15/16 06:58 05/15/16 06:58 05/15/16 06:58 05/15/16 06:58 Laboratory Results 05/15/16 05:00 05/15/16 05:00 05/14/16 05/15/16 05/16/16 05:59 05:59 05:59 Intake Total 230 600 Output Total 1650 1300 Balance -1420 -700 PT 15.8 SEC (12.0-15.0) H 05/15/16 05:00 INR 1.26 (0.83-1.16) H 05/15/16 05:00 Physical Exam - Physical Exam General Appearance: no apparent distress Respiratory: lungs clear Cardiac/Chest: regular rate, rhythm Extremities: pedal edema Neuro/Psych: oriented x 3 ICD10 Worksheet Patient Problems: Problems Problem Status Onset Acute pancreatitis Acute Acute renal failure Acute Inflammatory bowel disease Active Tobacco user Active COPD (chronic obstructive pulmonary disease) case management patient Acute Chronic obstructive pulmonary disease with acute exacerbation Acute Dehydration, moderate Acute Fecal impaction Acute 07/03/13 Foot swelling Acute Hypoxia Acute Pleural effusion Acute SCLC (small cell lung carcinoma) Acute 02/06/13 Shortness of breath Acute Vertigo Acute Vomiting and diarrhea Acute
--- NOTE | 2016-05-15 10:50 | HOSPPROG ---
Hospitalist Progress Note Assessment/Plan: I/P 70 yo female admitted for acute on chronic pancreatitis on 05/02 as well as Acute kidney injury likely due to ATN. Required HD initially. Has done well w/o HD for several days. Urine output has increased. Cr. is improving. Will likely be ready for discharge this weekend. # acute on chronic pancreatitis: patient with hx of chronic calcific pancreatitis s/p cholecystectomy and more recently s/p EGD/EUS with post eus acute pancreatitis - On a regular diet - Pancreatic enzymes - GI will follow-up w/ patient as outpt, they have signed off - Nutrition consult # linus: likely ischemic ATNy - better UOP - monitor BMP - Decision on HD per Nephrology. No urgent needs today. # acute on chronic COPD: Resolved. now on prn albuterol, mucomyst # acute hypoxic respiratory failure: evidenced by SpO2 87% on 4L NC + objective tachypnea and resp distress/shortness of breath, 2/2 HCAP and COPD exacerbation. -Resolved. Now back to baseline which is around 2L 12/10 # possible aspiration pneumonia: treat for possible HCAP organisms - status post zosyn and augmentin, total 7 days # acute on chronic anemia: -Etiology is unclear. There is no evidence of acute blood loss. No reported melena or blood per rectum per nursing -Continue to hold Coumadin -No need for transfusion at this time -Anemia w/u to include iron studies, B12, and Folate unremarkable -check Occult blood check if further drop in Hgb # acute encephalopathy: evidenced by global brain dysfunction characterized as waxing and waning confusion, acute change from baseline, 2/2 metabolic effects of uremia - Resolved w/ HD # hx of dvt/pe: occurred in 2013, however given hx of malignancy and limited mobility, continues RF for recurrence - Had supratherapeutic INR shortly after admission and was given vit K and held coumadin 05/10 for HD cath - coumadin restarted 05/13, but had a drop in Hgb - Cont to hold coumadin. US of LE do not show evidence of DVT. # NSCLC: s/p partial lung resection # Crohn's disease: no e/o exacerbation or other acute issues currently diet. renal, advance to regular as soon as renal recovery evident given her poor oral intake on renal diet ppx. high risk, SCDs today w/ INR < 2 code. full dispo. ADD uncertain, pending clinical resolution of ATN, stable Hgb. possibly this S: Feels better Not SOB, denies pain Cr. decrease Urine output increasing Hgb has improved O: VSS NAD AAOX3 RRR DECREASED LUNG SOUNDS S/NT/ND NO EDEMA LABS REVIEWED Objective: Vital Signs Temp Pulse Resp BP Pulse Ox 36.8 C 78 16 151/81 H 98 05/15/16 06:58 05/15/16 06:58 05/15/16 06:58 05/15/16 06:58 05/15/16 06:58 Laboratory Results 05/15/16 05:00 05/15/16 05:00 05/14/16 05/15/16 05/16/16 05:59 05:59 05:59 Intake Total 230 600 Output Total 1650 1300 Balance -1420 -700 PT 15.8 SEC (12.0-15.0) H 05/15/16 05:00 INR 1.26 (0.83-1.16) H 05/15/16 05:00 - Physical Exam Constitutional: no apparent distress, appears nourished, not in pain Eyes: PERRL, anicteric sclera, EOMI Ears, Nose, Mouth, Throat: moist mucous membranes, hearing normal, ears appear normal, no oral mucosal ulcers Cardiovascular: regular rate and rhythym, no murmur, rub, or gallop Respiratory: no respiratory distress, no rales or rhonchi, reduced air movement Gastrointestinal: normoactive bowel sounds, soft, non-tender abdomen, no palpable masses Genitourinary: no bladder fullness, no bladder tenderness, no renal bruits Skin: warm, normal color Musculoskeletal: no muscle tenderness Neurologic: AAOx3 Psychiatric: interacting appropriately, not anxious, not encephalopathic Lymph, Heme, Immunologic: no cervical LAD ICD10 Worksheet Patient Problems: Problems Problem Status Onset Acute pancreatitis Acute Acute renal failure Acute Inflammatory bowel disease Active Tobacco user Active COPD (chronic obstructive pulmonary disease) case management patient Acute Chronic obstructive pulmonary disease with acute exacerbation Acute Dehydration, moderate Acute Fecal impaction Acute 07/03/13 Foot swelling Acute Hypoxia Acute Pleural effusion Acute SCLC (small cell lung carcinoma) Acute 02/06/13 Shortness of breath Acute Vertigo Acute Vomiting and diarrhea Acute
[2016-05-15] MEDS: oxyCODONE IR 5 MG TAB PO PRN (20:55)
[2016-05-15] MEDS: traZODone 50 MG TAB PO PRN (20:56)
[2016-05-15] MEDS: ACETAMINOPHEN 325 MG TAB PO PRN (20:56)
[2016-05-16] MEDS: HEPARIN 5,000 UNIT/0.5 ML SYR SC SCH ×3 (05:55→21:38)
[2016-05-16 06:15] LABS: % IMMATURE GRANULYOCYTES 0.7 % (0.0-1.1); ABSOLUTE IMMATURE GRANULOCYTES 0.05 10^3/uL (0.00-0.10); ADD DIFF? NO; ADD MORPH? NO; ADD SCAN? NO; ATYPICAL LYMPHOCYTE FLAG 10 (0-99); FRAGMENT RBC FLAG 0 (0-99); HEMOGLOBIN 7.4 g/dL (12.6-16.3); LEFT SHIFT FLG 0 (0-99); LIPEMIA HEMOLYSIS FLAG 80 (0-99); MEAN CELL HEMOGLOBIN 33.6 pg (27.9-34.1); MEAN CELL HEMOGLOBIN CONCENTR. 32.2 g/dL (32.4-36.7); MEAN CELL VOLUME 104.5 fL (81.5-99.8); MEAN PLATELET VOLUME 10.4 fL (8.7-11.7); PLATELET CLUMPS FLAG 0 (0-99); PLATELET COUNT 272 10^3/uL (150-400); RED CELL DISTRIBUTION WIDTH 14.7 % (11.5-15.2)
[2016-05-16 06:28] LABS: INR 1.23 (0.83-1.16); PROTIME(PATIENT) 15.5 SEC (12.0-15.0)
[2016-05-16 07:05] LABS: ALBUMIN 2.8 g/dL (3.5-5.0); ANION GAP 8 mEq/L (8-16); CALCIUM 8.4 mg/dL (8.5-10.4); CARBON DIOXIDE 27 mEq/l (22-31); CHLORIDE 105 mEq/L (97-110); CREATININE 6.4 mg/dL (0.6-1.0); GLOMERULAR FILTRATION RATE 6; GLUCOSE 78 mg/dL (70-100); POTASSIUM 4.1 mEq/L (3.5-5.2); SODIUM 140 mEq/L (134-144)
[2016-05-16] MEDS: CREON 24 CAP PO SCH ×3 (09:19→17:56)
[2016-05-16] MEDS: SENNOSIDES/DOCUSATE SODIUM TAB PO SCH ×2 (10:39→21:37)
--- NOTE | 2016-05-16 11:05 | SOAPPROG ---
SOAP Progress Note Assessment/Plan: Assessment: 1. JUAN Cr falling. HD cath removed without complication. Rochelle DC'd. Continue to monitor. 2. Anemia Stable 3. Pancreatitis Advancing diet, improving Subjective: Doing quite well. Objective: Vital Signs Temp Pulse Resp BP Pulse Ox 36.7 C 68 16 145/93 H 96 05/16/16 07:46 05/16/16 07:46 05/16/16 07:46 05/16/16 07:46 05/16/16 07:46 Laboratory Results 05/16/16 06:00 05/16/16 06:00 05/15/16 05/16/16 05/17/16 05:59 05:59 05:59 Intake Total 600 200 Output Total 1300 950 850 Balance -700 -950 -650 PT 15.5 SEC (12.0-15.0) H 05/16/16 06:00 INR 1.23 (0.83-1.16) H 05/16/16 06:00 Physical Exam - Physical Exam General Appearance: no apparent distress Neck: other (IJ cath removed) Respiratory: normal breath sounds Cardiac/Chest: regular rate, rhythm Extremities: pedal edema Neuro/Psych: normal mood/affect, oriented x 3 ICD10 Worksheet Patient Problems: Problems Problem Status Onset Acute pancreatitis Acute Acute renal failure Acute Inflammatory bowel disease Active Tobacco user Active COPD (chronic obstructive pulmonary disease) case management patient Acute Chronic obstructive pulmonary disease with acute exacerbation Acute Dehydration, moderate Acute Fecal impaction Acute 07/03/13 Foot swelling Acute Hypoxia Acute Pleural effusion Acute SCLC (small cell lung carcinoma) Acute 02/06/13 Shortness of breath Acute Vertigo Acute Vomiting and diarrhea Acute
[2016-05-16] MEDS: WARFARIN SODIUM 5 MG TAB PO SCH (14:40)
[2016-05-16] MEDS: oxyCODONE IR 5 MG TAB PO PRN (17:17)
--- NOTE | 2016-05-16 19:26 | HOSPPROG ---
Hospitalist Progress Note Assessment/Plan: 70 yo female admitted for acute on chronic pancreatitis on 05/02 as well as Acute kidney injury likely due to ATN. Required HD initially. Has done well w/o HD for several days. Urine output has increased. Cr. is improving. Will likely be ready for discharge this weekend. # acute on chronic pancreatitis- patient with hx of chronic calcific pancreatitis s/p cholecystectomy and more recently s/p EGD/EUS with post eus acute pancreatitis - cont regular diet - cont Pancreatic enzymes - GI will follow-up w/ patient as outpt, they have signed off # JUAN- suspected ATN- HD catheter removed today - creatinine down to 6.4 without HD - monitor UOP - monitor BMP # acute hypoxic respiratory failure 2/ COPD and HCAP- oxygen saturations 96% on 2L NC -Resolved. Now back to baseline which is around 2L 12/10 # possible aspiration pneumonia: treat for possible HCAP organisms- CXR ( personally reviewed and interpreted) LLL infiltrate vs pneumonitis - status post zosyn and augmentin, total 7 days # acute on chronic anemia: -Etiology is unclear. There is no evidence of acute blood loss. No reported melena or blood per rectum per nursing -restarting Coumadin today - follow H&H # acute encephalopathy- resolved with HD # hx of dvt/pe-occurred in 2013 - pt high risk of recurrence with stable hgb x 72 hours will restart warfarin tonight without bridge # NSCLC: s/p partial lung resection # Crohn's disease: no e/o exacerbation or other acute issues currently #diet. renal, advance to regular as soon as renal recovery evident given her poor oral intake on renal diet #ppx. high risk, SCDs - restart warfarin today code. full dispo.- expect in 48 hours if hgb and creatinine continue to remain stable I have discussed the case with nephrology - will monitor renal function of HD over weekend Subjective: feeling stronger Objective: Vital Signs Temp Pulse Resp BP Pulse Ox 36.4 C 74 20 158/77 H 96 05/16/16 16:00 05/16/16 16:00 05/16/16 16:00 05/16/16 16:00 05/16/16 16:00 Laboratory Results 05/16/16 06:00 05/16/16 06:00 05/15/16 05/16/16 05/17/16 05:59 05:59 05:59 Intake Total 600 200 Output Total 8855 711 9090 Balance -700 -950 -1050 PT 15.5 SEC (12.0-15.0) H 05/16/16 06:00 INR 1.23 (0.83-1.16) H 05/16/16 06:00 - Physical Exam Constitutional: chronically ill appearing Eyes: pale conjunctiva Ears, Nose, Mouth, Throat: dry mucous membranes Cardiovascular: regular rate and rhythym Respiratory: no rales or rhonchi Gastrointestinal: normoactive bowel sounds Genitourinary: no bladder fullness Skin: warm Musculoskeletal: No asymmetric calves Neurologic: AAOx3 Psychiatric: interacting appropriately, not anxious ICD10 Worksheet Patient Problems: Problems Problem Status Onset Acute pancreatitis Acute Acute renal failure Acute Inflammatory bowel disease Active Tobacco user Active COPD (chronic obstructive pulmonary disease) case management patient Acute Chronic obstructive pulmonary disease with acute exacerbation Acute Dehydration, moderate Acute Fecal impaction Acute 07/03/13 Foot swelling Acute Hypoxia Acute Pleural effusion Acute SCLC (small cell lung carcinoma) Acute 02/06/13 Shortness of breath Acute Vertigo Acute Vomiting and diarrhea Acute
[2016-05-16] MEDS: traZODone 50 MG TAB PO PRN (21:37)
[2016-05-17] MEDS: HEPARIN 5,000 UNIT/0.5 ML SYR SC SCH ×3 (05:12→22:19)
[2016-05-17 06:02] LABS: % IMMATURE GRANULYOCYTES 0.6 % (0.0-1.1); ABSOLUTE IMMATURE GRANULOCYTES 0.04 10^3/uL (0.00-0.10); ADD DIFF? NO; ADD MORPH? NO; ADD SCAN? NO; ATYPICAL LYMPHOCYTE FLAG 10 (0-99); FRAGMENT RBC FLAG 0 (0-99); HEMOGLOBIN 7.1 g/dL (12.6-16.3); LEFT SHIFT FLG 0 (0-99); LIPEMIA HEMOLYSIS FLAG 80 (0-99); MEAN CELL HEMOGLOBIN 33.2 pg (27.9-34.1); MEAN CELL HEMOGLOBIN CONCENTR. 32.3 g/dL (32.4-36.7); MEAN CELL VOLUME 102.8 fL (81.5-99.8); MEAN PLATELET VOLUME 10.4 fL (8.7-11.7); PLATELET CLUMPS FLAG 10 (0-99); PLATELET COUNT 285 10^3/uL (150-400); RED BLOOD CELL COUNT 2.14 10^6/uL (4.18-5.33); RED CELL DISTRIBUTION WIDTH 14.8 % (11.5-15.2)
[2016-05-17 06:11] LABS: INR 1.24 (0.83-1.16); PROTIME(PATIENT) 15.6 SEC (12.0-15.0)
[2016-05-17 06:13] LABS: ALBUMIN 2.9 g/dL (3.5-5.0); ANION GAP 10 mEq/L (8-16); CALCIUM 8.5 mg/dL (8.5-10.4); CARBON DIOXIDE 27 mEq/l (22-31); CHLORIDE 104 mEq/L (97-110); CREATININE 5.1 mg/dL (0.6-1.0); GLOMERULAR FILTRATION RATE 8; GLUCOSE 88 mg/dL (70-100); SODIUM 141 mEq/L (134-144)
[2016-05-17] MEDS: oxyCODONE IR 5 MG TAB PO PRN (07:42)
[2016-05-17] MEDS: SENNOSIDES/DOCUSATE SODIUM TAB PO SCH ×2 (07:43→22:19)
[2016-05-17] MEDS: CREON 24 CAP PO SCH ×3 (08:26→16:49)
[2016-05-17] MEDS ORDERED: EPOETIN ALFA 10,000 UNIT/ML VIAL SC SCH (10:00)
--- NOTE | 2016-05-17 10:05 | SOAPPROG ---
SOAP Progress Note Assessment/Plan: Assessment: 1. JUAN Cr continues to improve. Eating an drinking well. Line removal site looks ok. Lytes good. 2. Anemia Hg is declining. Follow. Give Procrit. Check stool HO. 3. Pancreatitis Advancing diet, improving Subjective: Doing pretty well. Objective: Vital Signs Temp Pulse Resp BP Pulse Ox 36.6 C 71 20 152/94 H 94 05/17/16 07:28 05/17/16 07:28 05/17/16 07:28 05/17/16 07:28 05/17/16 07:28 Laboratory Results 05/17/16 05:21 05/17/16 05:21 05/16/16 05/17/16 05/18/16 05:59 05:59 05:59 Intake Total 200 Output Total 950 1250 350 Balance -950 -1050 -350 PT 15.6 SEC (12.0-15.0) H 05/17/16 05:21 INR 1.24 (0.83-1.16) H 05/17/16 05:21 Physical Exam - Physical Exam General Appearance: no apparent distress Neck: other (line removal site ok) Respiratory: decreased breath sounds Cardiac/Chest: regular rate, rhythm Extremities: pedal edema Neuro/Psych: oriented x 3 ICD10 Worksheet Patient Problems: Problems Problem Status Onset Acute pancreatitis Acute Acute renal failure Acute Inflammatory bowel disease Active Tobacco user Active COPD (chronic obstructive pulmonary disease) case management patient Acute Chronic obstructive pulmonary disease with acute exacerbation Acute Dehydration, moderate Acute Fecal impaction Acute 07/03/13 Foot swelling Acute Hypoxia Acute Pleural effusion Acute SCLC (small cell lung carcinoma) Acute 02/06/13 Shortness of breath Acute Vertigo Acute Vomiting and diarrhea Acute
--- NOTE | 2016-05-17 16:18 | HOSPPROG ---
Hospitalist Progress Note Assessment/Plan: 70 yo female admitted for acute on chronic pancreatitis on 05/02 as well as Acute kidney injury likely due to ATN. Required HD initially. Has done well w/o HD for several days. Urine output has increased. Cr. is improving. Will likely be ready for discharge this weekend. # JUAN- suspected ATN- HD catheter and simmons removed - creatinine down to 5.1 without HD - monitor UOP - monitor BMP # acute on chronic pancreatitis- patient with hx of chronic calcific pancreatitis s/p cholecystectomy and more recently s/p EGD/EUS with post eus acute pancreatitis - cont regular diet - cont Pancreatic enzymes - GI will follow-up w/ patient as outpt, they have signed off # acute hypoxic respiratory failure 2/2 COPD and HCAP- oxygen saturations 95% on 2L NC -Resolved. Now back to baseline which is around 2L 12/10 # possible aspiration pneumonia: treat for possible HCAP organisms- CXR ( personally reviewed and interpreted) LLL infiltrate vs pneumonitis - status post zosyn and augmentin, total 7 days # acute on chronic anemia: -Etiology is unclear. INR 1.2 There is no evidence of acute blood loss. No reported melena or blood per rectum per nursing -cont restarted Coumadin - follow H&H # acute encephalopathy- resolved with HD # hx of dvt/pe-occurred in 2013 - pt high risk of recurrence with stable hgb x 72 hours will restart warfarin tonight without bridge # NSCLC: s/p partial lung resection # Crohn's disease: no e/o exacerbation or other acute issues currently #diet. renal, advance to regular as soon as renal recovery evident given her poor oral intake on renal diet #ppx. high risk, SCDs - restart warfarin today code. full dispo.- expect in 48 hours if hgb and creatinine continue to remain stable- home with home health I have discussed the case with RN - patient taking good PO today with increased strength - cont current course Subjective: feels well Objective: Vital Signs Temp Pulse Resp BP Pulse Ox 36.7 C 77 18 170/93 H 94 05/17/16 16:00 05/17/16 16:00 05/17/16 16:00 05/17/16 16:00 05/17/16 16:00 Laboratory Results 05/17/16 05:21 05/17/16 05:21 05/16/16 05/17/16 05/18/16 05:59 05:59 05:59 Intake Total 200 390 Output Total 950 1250 700 Balance -950 -1050 -310 PT 15.6 SEC (12.0-15.0) H 05/17/16 05:21 INR 1.24 (0.83-1.16) H 05/17/16 05:21 - Physical Exam Constitutional: chronically ill appearing Eyes: anicteric sclera Ears, Nose, Mouth, Throat: moist mucous membranes Cardiovascular: regular rate and rhythym Respiratory: no respiratory distress, no rales or rhonchi Gastrointestinal: normoactive bowel sounds, soft, non-tender abdomen Genitourinary: no bladder fullness Skin: warm, normal color Musculoskeletal: No asymmetric calves Neurologic: AAOx3 Psychiatric: interacting appropriately, not anxious Lymph, Heme, Immunologic: no cervical LAD ICD10 Worksheet Patient Problems: Problems Problem Status Onset Acute pancreatitis Acute Acute renal failure Acute Inflammatory bowel disease Active Tobacco user Active COPD (chronic obstructive pulmonary disease) case management patient Acute Chronic obstructive pulmonary disease with acute exacerbation Acute Dehydration, moderate Acute Fecal impaction Acute 07/03/13 Foot swelling Acute Hypoxia Acute Pleural effusion Acute SCLC (small cell lung carcinoma) Acute 02/06/13 Shortness of breath Acute Vertigo Acute Vomiting and diarrhea Acute
[2016-05-17] MEDS: WARFARIN SODIUM 5 MG TAB PO SCH (16:22)
[2016-05-17] MEDS: traZODone 50 MG TAB PO PRN (22:19)
[2016-05-17 22:38] VITALS: O2SAT 96
[2016-05-18] MEDS: HEPARIN 5,000 UNIT/0.5 ML SYR SC SCH (05:23)
[2016-05-18 05:39] LABS: % IMMATURE GRANULYOCYTES 0.5 % (0.0-1.1); ABSOLUTE IMMATURE GRANULOCYTES 0.03 10^3/uL (0.00-0.10); ADD DIFF? NO; ADD MORPH? NO; ADD SCAN? NO; ATYPICAL LYMPHOCYTE FLAG 20 (0-99); FRAGMENT RBC FLAG 0 (0-99); HEMATOCRIT 22.9 % (38.0-47.0); HEMOGLOBIN 7.4 g/dL (12.6-16.3); LEFT SHIFT FLG 0 (0-99); LIPEMIA HEMOLYSIS FLAG 80 (0-99); MEAN CELL HEMOGLOBIN 32.9 pg (27.9-34.1); MEAN CELL HEMOGLOBIN CONCENTR. 32.3 g/dL (32.4-36.7); MEAN CELL VOLUME 101.8 fL (81.5-99.8); MEAN PLATELET VOLUME 10.5 fL (8.7-11.7); PLATELET CLUMPS FLAG 0 (0-99); PLATELET COUNT 289 10^3/uL (150-400); RED BLOOD CELL COUNT 2.25 10^6/uL (4.18-5.33); RED CELL DISTRIBUTION WIDTH 14.6 % (11.5-15.2)
[2016-05-18 05:52] LABS: INR 1.36 (0.83-1.16); PROTIME(PATIENT) 16.8 SEC (12.0-15.0)
[2016-05-18 08:22] VITALS: BP 148/87; PULSE 73; RESP 14; TEMP 97.4
[2016-05-18] MEDS: CREON 24 CAP PO SCH (09:10)
[2016-05-18] MEDS: SENNOSIDES/DOCUSATE SODIUM TAB PO SCH (09:10)
[2016-05-18] MEDS: oxyCODONE IR 5 MG TAB PO PRN (09:10)
[2016-05-18 09:30] LABS: ALBUMIN 2.9 g/dL (3.5-5.0); ANION GAP 10 mEq/L (8-16); CALCIUM 8.6 mg/dL (8.5-10.4); CARBON DIOXIDE 27 mEq/l (22-31); CHLORIDE 104 mEq/L (97-110); GLOMERULAR FILTRATION RATE 11; GLUCOSE 83 mg/dL (70-100); SODIUM 141 mEq/L (134-144)
--- NOTE | 2016-05-18 10:43 | PDIAF ---
- Diagnosis Diagnosis: acute renal failure Code Status: Full Code - Medication Management Discharge Medications: Medications to Continue on Transfer Warfarin Sodium [Coumadin 5MG (*)] 12.5 mg PO MWF@16 06/28/13 [Last Taken ] Warfarin Sodium [Coumadin 5MG (*)] 10 mg PO SUTUTHSA@16 04/11/15 [Last Taken 12/06] Cyanocobalamin [Vitamin B12 (*)] 1,000 mcg PO DAILY 02/29/16 [Last Taken ] Multivitamins [Multivitamin (*)] 1 each PO DAILY 02/29/16 [Last Taken 04/25/16] Bisacodyl [Bisacodyl (*)] 5 mg PO PRN PRN #0 tab 05/18/16 [Last Taken Unknown] Epoetin Hernán [Procrit 29650 UNIT/ML (*)] 10,000 unit SC Q7D #0 vial 05/18/16 [ Last Taken Unknown] Lipase/Protease/Amylase [Creon 24 (*)] 2 cap PO TIDMEAL #0 cap 05/18/16 [Last Taken Unknown] Polyethylene Glycol 3350 [Miralax 17 gm (*)] 17 gm PO BID PRN #0 pkt 05/18/16 [ Last Taken Unknown] Sennosides/Docusate Sodium [Senokot-S] 1 - 2 tab PO BID #0 tab 05/18/16 [Last Taken Unknown] oxyCODONE IR [Oxycodone Ir (*)] 5 - 10 mg PO Q4HRS PRN #0 tab 05/18/16 [Last Taken Unknown] traZODone [traZODONE 50MG (*)] 50 mg PO HS PRN #0 tab 05/18/16 [Last Taken Unknown] Discharge Medications: Refer to the Discharge Home Medication list for PRN reason. - Orders Services needed: Home Care, Registered Nurse, Physical Therapy, Occupational Therapy Home Care Face to Face: I certify that this patient was under my care and that I had the required [id number] encounter meeting the encounter requirements on the discharge day. My findings support the fact that the patient is homebound as defined in CMS Chapter 7 Medicare Benefits Manual 30.1.1, The condition of the patient is such that there exists a normal inability to leave home and consequently, leaving home would require a considerable and taxing effort. Diet Recommendation: other (renal) Diet Texture: Regular Texture Diet - Follow Up Care Current Providers and Referrals: Concepcion Smith MD [Primary Care Provider] - As per Instructions Frankie Ojeda MD [Medical Doctor] -
--- NOTE | 2016-05-18 10:47 | PDIAF ---
- Diagnosis Diagnosis: acute renal failure Code Status: Full Code - Medication Management Discharge Medications: Medications to Continue on Transfer Warfarin Sodium [Coumadin 5MG (*)] 12.5 mg PO MWF@16 06/28/13 [Last Taken ] Warfarin Sodium [Coumadin 5MG (*)] 10 mg PO SUTUTHSA@16 04/11/15 [Last Taken 12/06] Cyanocobalamin [Vitamin B12 (*)] 1,000 mcg PO DAILY 02/29/16 [Last Taken ] Multivitamins [Multivitamin (*)] 1 each PO DAILY 02/29/16 [Last Taken 04/25/16] Bisacodyl [Bisacodyl (*)] 5 mg PO PRN PRN #0 tab 05/18/16 [Last Taken Unknown] Epoetin Hernán [Procrit 97894 UNIT/ML (*)] 10,000 unit SC Q7D #0 vial 05/18/16 [ Last Taken Unknown] Lipase/Protease/Amylase [Creon 24 (*)] 2 cap PO TIDMEAL #0 cap 05/18/16 [Last Taken Unknown] Polyethylene Glycol 3350 [Miralax 17 gm (*)] 17 gm PO BID PRN #0 pkt 05/18/16 [ Last Taken Unknown] Sennosides/Docusate Sodium [Senokot-S] 1 - 2 tab PO BID #0 tab 05/18/16 [Last Taken Unknown] oxyCODONE IR [Oxycodone Ir (*)] 5 - 10 mg PO Q4HRS PRN #0 tab 05/18/16 [Last Taken Unknown] traZODone [traZODONE 50MG (*)] 50 mg PO HS PRN #0 tab 05/18/16 [Last Taken Unknown] Discharge Medications: Refer to the Discharge Home Medication list for PRN reason. - Orders Services needed: Home Care, Registered Nurse, Physical Therapy, Occupational Therapy Home Care Face to Face: I certify that this patient was under my care and that I had the required [id number] encounter meeting the encounter requirements on the discharge day. My findings support the fact that the patient is homebound as defined in CMS Chapter 7 Medicare Benefits Manual 30.1.1, The condition of the patient is such that there exists a normal inability to leave home and consequently, leaving home would require a considerable and taxing effort. Diet Recommendation: other (renal) Diet Texture: Regular Texture Diet - Labs/Radiology BMP Date: 05/25/16 (check renal function weekly and call to Dr. Fried) - Follow Up Care Current Providers and Referrals: Concepcion Smith MD [Primary Care Provider] - As per Instructions Frankie Ojeda MD [Medical Doctor] -
--- NOTE | 2016-05-18 10:59 | PDIAF ---
- Diagnosis Diagnosis: acute renal failure Code Status: Full Code - Medication Management Discharge Medications: Medications to Continue on Transfer Warfarin Sodium [Coumadin 5MG (*)] 12.5 mg PO MWF@16 06/28/13 [Last Taken ] Warfarin Sodium [Coumadin 5MG (*)] 10 mg PO SUTUTHSA@16 04/11/15 [Last Taken 12/06] Cyanocobalamin [Vitamin B12 (*)] 1,000 mcg PO DAILY 02/29/16 [Last Taken ] Multivitamins [Multivitamin (*)] 1 each PO DAILY 02/29/16 [Last Taken 04/25/16] Bisacodyl [Bisacodyl (*)] 5 mg PO PRN PRN #0 tab 05/18/16 [Last Taken Unknown] Epoetin Hernán [Procrit 37612 UNIT/ML (*)] 10,000 unit SC Q7D #0 vial 05/18/16 [ Last Taken Unknown] Lipase/Protease/Amylase [Creon 24 (*)] 2 cap PO TIDMEAL #0 cap 05/18/16 [Last Taken Unknown] Polyethylene Glycol 3350 [Miralax 17 gm (*)] 17 gm PO BID PRN #0 pkt 05/18/16 [ Last Taken Unknown] Sennosides/Docusate Sodium [Senokot-S] 1 - 2 tab PO BID #0 tab 05/18/16 [Last Taken Unknown] oxyCODONE IR [Oxycodone Ir (*)] 5 - 10 mg PO Q4HRS PRN #0 tab 05/18/16 [Last Taken Unknown] traZODone [traZODONE 50MG (*)] 50 mg PO HS PRN #0 tab 05/18/16 [Last Taken Unknown] Discharge Medications: Refer to the Discharge Home Medication list for PRN reason. - Orders Services needed: Home Care, Registered Nurse, Physical Therapy, Occupational Therapy Home Care Face to Face: I certify that this patient was under my care and that I had the required [id number] encounter meeting the encounter requirements on the discharge day. My findings support the fact that the patient is homebound as defined in CMS Chapter 7 Medicare Benefits Manual 30.1.1, The condition of the patient is such that there exists a normal inability to leave home and consequently, leaving home would require a considerable and taxing effort. Diet Recommendation: other (renal) Diet Texture: Regular Texture Diet - Labs/Radiology BMP Date: 05/25/16 (check renal function weekly and call to Dr. Fried) PT/INR Date: 05/20/16 (call to PCP) - Follow Up Care Current Providers and Referrals: Concepcion Smith MD [Primary Care Provider] - As per Instructions Frankie Ojeda MD [Medical Doctor] -
--- NOTE | 2016-05-18 11:06 | SOAPPROG ---
SOAP Progress Note Assessment/Plan: Assessment:Plan: ARF-ATN -recovering nicely -creatinine down to 4 today -last dialysis last week -Hd catheter has been discontinued -will need weekly labs to monitor recovery and to see if she regains prior baseline CKD-baseline 1 to 1.5 -should have follow up in Nephrology office in 4 weeks 05/18/16 11:03 Subjective: some trouble swallowing Objective: Vital Signs Temp Pulse Resp BP Pulse Ox 36.3 C 73 14 148/87 H 96 05/18/16 08:00 05/18/16 08:00 05/18/16 08:00 05/18/16 08:00 05/18/16 08:00 Laboratory Results 05/18/16 04:41 05/18/16 05:41 05/17/16 05/18/16 05/19/16 05:59 05:59 05:59 Intake Total 200 1276 Output Total 1250 1000 Balance -1050 276 PT 16.8 SEC (12.0-15.0) H 05/18/16 04:41 INR 1.36 (0.83-1.16) H 05/18/16 04:41 Physical Exam - Physical Exam General Appearance: alert, no apparent distress EENT: normal ENT inspection Neck: normal inspection Respiratory: lungs clear, normal breath sounds, No respiratory distress Cardiac/Chest: regular rate, rhythm Abdomen: normal bowel sounds, non-tender Extremities: No swelling ICD10 Worksheet Patient Problems: Problems Problem Status Onset Acute pancreatitis Acute Acute renal failure Acute Inflammatory bowel disease Active Tobacco user Active COPD (chronic obstructive pulmonary disease) case management patient Acute Chronic obstructive pulmonary disease with acute exacerbation Acute Dehydration, moderate Acute Fecal impaction Acute 07/03/13 Foot swelling Acute Hypoxia Acute Pleural effusion Acute SCLC (small cell lung carcinoma) Acute 02/06/13 Shortness of breath Acute Vertigo Acute Vomiting and diarrhea Acute
[2016-05-18] MEDS ORDERED: WARFARIN SODIUM 5 MG TAB PO SCH (16:00)
--- NOTE | 2016-05-19 01:21 | GDS ---
DISCHARGE DIAGNOSES: Include: 1. Acute on chronic kidney disease, requiring transient hemodialysis, suspected acute tubular necro sis. 2. Acute on chronic pancreatitis. 3. Acute hypoxic respiratory failure secondary to chronic obstructive pulmonary disease and healthc are-associated pneumonia. 4. Healthcare-associated pneumonia versus aspiration pneumonia. 5. Acute on chronic anemia. 6. Acute encephalopathy secondary to uremia. 7. History of deep venous thrombosis/pulmonary embolus, on anticoagulation. 8. Chb-[id number]-lbiz lung cancer, status post partial lung resection. 9. Crohn disease, on chronic azathioprine. HISTORY OF PRESENT ILLNESS: A 70-year-old female who presented on 05/02/2016 with complaints of abd ominal pain. For details of THE patient's initial presentation, please see the history and physical dated 05/02/2016. CONSULTATIVE SERVICES: Include: 1. Nephrology. 2. Gastroenterology. 3. Interventional Radiology. PROCEDURES: On 05/04/2016, the patient had a temporary hemodialysis catheter placed. On 03/11/2017 , the patient had a PICC line placed. HOSPITAL COURSE BY ISSUE: 1. Acute kidney injury thought secondary to ATN. The patient had a hemodialysis catheter placed wi thin 48 hours of her initial hospitalization and was dialyzed through the early part of her hospital ization. On the day of disposition, she has been away from hemodialysis for several days and has a daily improvement in her creatinine from 6.4 to 4.0 on the day of discharge. The patient will have weekly BMPs checked and called to Dr. Ojeda's office for followup. She is to be seen in the [facility] in 1 month's time. 2. Acute on chronic pancreatitis secondary to ERCP and EUS. The patient was treated clinically for pancreatitis and slowly retitrated up on food. On the day of disposition, she was tolerating a reg ular diet with supplemental pancreatic enzymes. She will follow in the outpatient setting with [facility]. 3. Crohn disease. This is a chronic diagnosis. The patient did not experience an acute flare. Preston real has had her Imuran held during this hospital stay in the setting of acute kidney injury. This kushal l be held at disposition and should be reinitiated by Dr. 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 4. History of DVT/PE. The patient is on chronic warfarin therapy, which was held during this hospi trina stay. It is reinitiated without bridging at disposition. INR is subtherapeutic on the day of d isposition and is to be followed q.48 hours until therapeutic by home nursing. MEDICATIONS AT THE TIME OF DISPOSITION: Please reference medication reconciliation printed 05/18/19 17. FOLLOWUP APPOINTMENTS: Include: 1. With Nephrology in 1 month's time. 2. Gastroenterology in the next 2 to 4 weeks for post discharge evaluation. 3. With [facility] for ongoing management of her anticoagulation and oncologic diagnosis. TIME SPENT: I spent greater than 30 minutes in the planning and coordination of this discharge. /[id number]/MODL
== END 2016-05-18 12:11 | disposition home health service (06) | DRG 438 ==
LOC: F3E 15:08 → OBSVTOIN 15:14
PROVIDERS: ADMIT Internal Medicine; ATTEND Internal Medicine
PROC: 05HP33Z Insertion of Infusion Device into Right External Jugular Vein, Percutaneous Approach (ICD-10-PCS; principal; 2016-05-04)
DX: K85.90 Acute pancreatitis without necrosis or infection, unspecified (principal); K86.1 Other chronic pancreatitis; N17.0 Acute kidney failure with tubular necrosis; N18.9 Chronic kidney disease, unspecified; J69.0 Pneumonitis due to inhalation of food and vomit; J96.01 Acute respiratory failure with hypoxia; G93.40 Encephalopathy, unspecified; E87.2 Acidosis; E86.0 Dehydration; K50.90 Crohn's disease, unspecified, without complications; J44.9 Chronic obstructive pulmonary disease, unspecified; C79.31 Secondary malignant neoplasm of brain; Z85.118 Personal history of other malignant neoplasm of bronchus and lung; Z86.711 Personal history of pulmonary embolism; Z86.718 Personal history of other venous thrombosis and embolism; Z87.891 Personal history of nicotine dependence; Z79.01 Long term (current) use of anticoagulants; Z99.81 Dependence on supplemental oxygen
CPT/HCPCS: 82607-90; 82784-90; 83516-90; 86704-90; 96374; 97116-GP; 97161-GP; 97165-GO; 97530-GO; 97535-GO; C1750; G8978-GP-CJ; G8979-GP-CI; G8987-GO-CJ; G8987-GO-CK; G8988-GO-CH; G8988-GO-CI; J0885; J1170; J1644; J2405; J2543; J2997

== ENCOUNTER → 2016-07-23 | Outpatient (CLI) | payer OTHER, BC ==
[~2016-07-23] MED LIST: GADOBUTROL 10 ML VIAL IVP ONE
[2016-07-23 09:19] LABS: CREATININE 1.5 mg/dL (0.6-1.0)
== END ==
LOC: FIMAGING 08:06
PROVIDERS: ATTEND Internal Medicine Hematology & Oncology
DX: K86.1 Other chronic pancreatitis (principal)
CPT/HCPCS: 74183; A9585

== ENCOUNTER → 2016-12-15 | Outpatient (CLI) | payer OTHER, BC | LOC: FIMAGING 12:07 | PROVIDERS: ATTEND Nurse Practitioner | DX: C79.31 Secondary malignant neoplasm of brain (principal); C34.90 Malignant neoplasm of unspecified part of unspecified bronchus or lung; Z12.39 Encounter for other screening for malignant neoplasm of breast | CPT/HCPCS: 0159T; A9585; C8908 ==

== ENCOUNTER 2018-06-15 11:00 | Inpatient (IN) | payer OTHER, BC ==
[2018-06-15 11:39] LABS: PLATELET COUNT 224 10^3/uL (150-400)
--- NOTE | 2018-06-15 11:39 | EDPHY ---
HPI/HX/ROS/PE/MDM Narrative: CHIEF COMPLAINT: Confusion HPI: This patient is an anticoagulated (Coumadin) 72 year old female with history including metastatic lung cancer, COPD, DVT/PE. She presents today at the request of her oncologist for evaluation of acute onset confusion. She developed a frontal headache yesterday evening which persists. When she presented for her routine oncology followup this morning, she appeared confused and was not wearing shoes. Her friend at bedside reported to nursing staff that the patient doesn't seem to be understanding what is said to her. REVIEW OF SYSTEMS: A comprehensive 10 system review of systems is otherwise negative aside from elements mentioned in the history of present illness and medical decision making. PMH: 1. History of lung cancer with brain metastases, s/p treatment in 2012 with no obvious recurrence. 2. Chronic pancreatitis 3. COPD 4. History of DVT/PE (Coumadin) 5. History of Crohn's disease (azathioprine) and SBO secondary to this 6. Cholecystectomy 7. Hysterectomy SOCIAL HISTORY: Nonsmoker. Lives in [place]. Retired. PHYSICAL EXAM: General: Patient is alert, in no acute distress. ENT:Eyes are normal to inspection. ENT inspection normal. Neck: Normal inspection. Full range of motion. Respiratory:No respiratory distress. Breath sounds normal bilaterally. Cardiovascular: Regular rate and rhythm. Strong peripheral pulses. Normal cap refill. Abdomen:The abdomen is nontender to palpation. There are no peritoneal signs. There are normal bowel sounds. Back: Normal to inspection. No tenderness to palpation. Skin: Pale. No rash. Warm and dry. Extremities: Normal appearance. Full range of motion. Neuro: Oriented x3. Normal motor function. Normal sensory function. ED Course: 72 y/o female with history of metastatic lung cancer presents at the request of her oncologist for evaluation of acute onset confusion. She complains of a frontal headache as well. She is pale-appearing. Plan for EKG, CT head, labs including CBC, chemistries, troponin, co-ag panel, UA. POC troponin negative. Reviewed laboratory studies. Patient is mildly anemic, and does have history of anemia. UA pending. 12:[address] [place], radiologist. CT head negative for acute processes. 13:30 UA is positive for UTI. The patient lives alone and would benefit from admission for treatment. Plan to admit for further management. Plan to administer 500mg PO Keflex. 13:57 Spoke with hospitalist service. Dr. Crocker accepts admission for UTI. - Data Points Imaging Results: Imaging Impressions Head CT 06/15/18 11:01 Impression: 1. No acute intracranial process. 2. Age-appropriate generalized cerebral volume loss with sequelae of chronic microvascular ischemic disease. 3. Paranasal sinus disease. Findings and recommendations discussed with Diego Silva MD at 1255 hour, 06/15/2018. Laboratory Results: Laboratory Results 06/15/18 11:13 06/15/18 11:13 06/15/18 06/15/18 06/15/18 13:15 11:17 11:13 WBC RBC Hgb Hct MCV MCH MCHC RDW Plt Count MPV Neut % (Auto) Lymph % (Auto) Page % (Auto) Eos % (Auto) Baso % (Auto) Nucleat RBC Rel Count Absolute Neuts (auto) Absolute Lymphs (auto) Absolute Monos (auto) Absolute Eos (auto) Absolute Basos (auto) Absolute Nucleated RBC Immature Gran % Immature Gran # PT INR APTT Sodium 137 mEq/L mEq/L (135-145) Potassium 5.0 mEq/L mEq/L (3.5-5.2) Chloride 104 mEq/L mEq/L (97-110) Carbon Dioxide 21 mEq/l L mEq/l (22-31) Anion Gap 12 mEq/L mEq/L (6-14) BUN 21 mg/dL mg/dL (7-23) Creatinine 1.2 mg/dL H mg/dL (0.6-1.0) Estimated GFR 44 Glucose 101 mg/dL H mg/dL (70-100) Calcium 9.3 mg/dL mg/dL (8.5-10.4) POC Troponin I 0.01 ng/mL ng/mL (0.00-0.08) Urine Color RED Urine Appearance HAZY Urine pH 8.0 H (5.0-7.5) Ur Specific [place] 1.013 (1.002-1.030) Urine Protein NEGATIVE (NEGATIVE) Urine Ketones NEGATIVE (NEGATIVE) Urine Blood NEGATIVE (NEGATIVE) Urine Nitrate POSITIVE H (NEGATIVE) Urine Bilirubin NEGATIVE (NEGATIVE) Urine Urobilinogen NEGATIVE EU EU (0.2-1.0) Ur Leukocyte Esterase 2+ H (NEGATIVE) Urine RBC NONE SEEN /hpf /hpf (0-3) Urine WBC 50-182 /hpf H /hpf (0-3) Ur Epithelial Cells TRACE /lpf /lpf (NONE-1+) Urine Bacteria TRACE /hpf H /hpf (NONE SEEN) Urine Glucose NEGATIVE (NEGATIVE) 06/15/18 06/15/18 11:13 11:13 WBC 9.38 10^3/uL 10^3/uL (3.80-9.50) RBC 3.29 10^6/uL L 10^6/uL (4.18-5.33) Hgb 11.3 g/dL L g/dL (12.6-16.3) Hct 33.1 % L % (38.0-47.0) MCV 100.6 fL H fL (81.5-99.8) MCH 34.3 pg H pg (27.9-34.1) MCHC 34.1 g/dL g/dL (32.4-36.7) RDW 14.6 % % (11.5-15.2) Plt Count 224 10^3/uL 10^3/uL (150-400) MPV 10.2 fL fL (8.7-11.7) Neut % (Auto) 84.6 % H % (39.3-74.2) Lymph % (Auto) 8.6 % L % (15.0-45.0) Page % (Auto) 6.0 % % (4.5-13.0) Eos % (Auto) 0.1 % L % (0.6-7.6) Baso % (Auto) 0.3 % % (0.3-1.7) Nucleat RBC Rel Count 0.0 % % (0.0-0.2) Absolute Neuts (auto) 7.93 10^3/uL H 10^3/uL (1.70-6.50) Absolute Lymphs (auto) 0.81 10^3/uL L 10^3/uL (1.00-3.00) Absolute Monos (auto) 0.56 10^3/uL 10^3/uL (0.30-0.80) Absolute Eos (auto) 0.01 10^3/uL L 10^3/uL (0.03-0.40) Absolute Basos (auto) 0.03 10^3/uL 10^3/uL (0.02-0.10) Absolute Nucleated RBC 0.00 10^3/uL 10^3/uL (0-0.01) Immature Gran % 0.4 % % (0.0-1.1) Immature Gran # 0.04 10^3/uL 10^3/uL (0.00-0.10) PT 22.8 SEC H SEC (12.0-15.0) INR 2.13 H (0.83-1.16) APTT 37.5 SEC SEC (23.0-38.0) Sodium Potassium Chloride Carbon Dioxide Anion Gap BUN Creatinine Estimated GFR Glucose Calcium POC Troponin I Urine Color Urine Appearance Urine pH Ur Specific [place] Urine Protein Urine Ketones Urine Blood Urine Nitrate Urine Bilirubin Urine Urobilinogen Ur Leukocyte Esterase Urine RBC Urine WBC Ur Epithelial Cells Urine Bacteria Urine Glucose Medications Given: Discontinued Medications Cephalexin HCl (Keflex) 500 mg PO EDNOW ONE PRN Reason: Protocol Stop: 06/15/18 13:38 Last Admin: 06/15/18 13:44 Dose: 500 mg Point of Care Test Results: Chemistry 06/15/18 11:17 POC Troponin I 0.01 ng/mL ng/mL (0.00-0.08) General Time Seen by Provider: 06/15/18 11:02 Initial Vital Signs: Initial Vital Signs Temperature (C) 36.8 C 06/15/18 11:11 Heart Rate 95 06/15/18 11:11 Respiratory Rate 20 06/15/18 11:11 Blood Pressure 135/96 H 06/15/18 11:11 O2 Sat (%) 94 06/15/18 11:11 O2 Delivery Mode Room Air Allergies/Adverse Reactions: erythromycin base [Erythromycin Base] Allergy (Mild, Verified 04/06/16 16:50) rash/GI upset Home Medications: Medication Instructions Recorded Warfarin Sodium [Coumadin 5MG (*)] 12.5 mg PO MWF@16 06/28/13 Warfarin Sodium [Coumadin 5MG (*)] 10 mg PO SUTUTHSA@16 04/11/15 Cyanocobalamin [Vitamin B12 (*)] 1,000 mcg PO DAILY 02/29/16 Multivitamins [Multivitamin (*)] 1 each PO DAILY 02/29/16 Bisacodyl [Bisacodyl (*)] 5 mg PO PRN PRN #0 tab 05/18/16 Epoetin Hernán [Procrit 36897 10,000 unit SC Q7D #0 vial 05/18/16 UNIT/ML] Lipase 24,000/Amylase/Protease 2 cap PO TIDMEAL #0 cap 05/18/16 [Creon 24 (*)] Polyethylene Glycol 3350 [Miralax 17 gm PO BID PRN #0 pkt 05/18/16 17 gm (*)] Sennosides/Docusate Sodium 1 - 2 tab PO BID #0 tab 05/18/16 [Senokot-S] oxyCODONE IR [Oxycodone Ir (*)] 5 - 10 mg PO Q4HRS PRN #0 tab 05/18/16 traZODone [traZODONE 50MG (*)] 50 mg PO HS PRN #0 tab 05/18/16 Departure - Departure Disposition: [facility] Inpatient Acute Clinical Impression: UTI (urinary tract infection) Condition: Fair Referrals: Concepcion Smith MD [Primary Care Provider] - As per Instructions Report Scribed for: Diego Silva Report Scribed by: Jeannette Leon Date of Report: 06/15/18 Time of Report: 12:25 Physician Review and Approval Statement: Portions of this note were transcribed by an ED scribe. I personally performed the history, physical exam, and medical decision making; and confirm the accuracy of the information in the transcribed note.
[2018-06-15 11:47] LABS: INR 2.13 (0.83-1.16); PROTIME(PATIENT) 22.8 SEC (12.0-15.0)
[2018-06-15] MEDS ORDERED: CEPHALEXIN 500 MG CAP PO ONE (13:37)
--- NOTE | 2018-06-15 14:09 | CPEKG ---
Test Reason : OPEN Blood Pressure : / mmHG Vent. Rate : 078 BPM Atrial Rate : 083 BPM P-R Int : 123 ms QRS Dur : 087 ms QT Int : 386 ms P-R-T Axes : 074 044 075 degrees QTc Int : 440 ms Sinus rhythm Ventricular premature complex Nonspecific T abnormalities, anterior leads Confirmed by Diego Silva ([id number]) on 06/15/2018 2:08:41 PM Referred By: Diego Silva Confirmed By:Diego Silva
[2018-06-15] MEDS ORDERED: ONDANSETRON 4 MG/2 ML VIAL IVP PRN (14:38)
[2018-06-15] MEDS ORDERED: ONDANSETRON DISINTEGRATING 4 MG TAB PO PRN (14:38)
--- NOTE | 2018-06-15 15:19 | HOSPPROG ---
Hospitalist Progress Note Assessment/Plan: pt seen with our MOTION [employer] FILM EXAMINER 72 yo female with confusion and weakness UA c/w UTI appears dehydrated #UTI #Dehydration #Diarrhea #Metastatic Lung Cancer #COPD, not in exacerbation Plan: abx f/u culture ivf test stool PT appropriate home meds agree with [employer] FILM EXAMINER's H&P per her dictation Subjective: no cp or sob. no n/v. confused earlier Objective: Vital Signs Temp Pulse Resp BP Pulse Ox 36.7 C 74 17 152/110 H 95 06/15/18 14:10 06/15/18 14:10 06/15/18 14:10 06/15/18 14:10 06/15/18 14:10 PT 22.8 SEC (12.0-15.0) H 06/15/18 11:13 INR 2.13 (0.83-1.16) H 06/15/18 11:13 - Physical Exam Constitutional: chronically ill appearing Eyes: PERRL, EOMI Ears, Nose, Mouth, Throat: hearing normal, dry mucous membranes Cardiovascular: No edema Respiratory: clear to auscultation Gastrointestinal: normoactive bowel sounds, soft, non-tender abdomen Skin: warm Musculoskeletal: generalized weakness Neurologic: AAOx3 Psychiatric: interacting appropriately Lymph, Heme, Immunologic: No petechiae ICD10 Worksheet Patient Problems: Problems Problem Status Onset UTI (urinary tract infection) Acute Inflammatory bowel disease Active Tobacco user Active Acute pancreatitis Acute Acute renal failure Acute COPD (chronic obstructive pulmonary disease) case management patient Acute Chronic obstructive pulmonary disease with acute exacerbation Acute Dehydration, moderate Acute Fecal impaction Acute 07/03/13 Foot swelling Acute Hypoxia Acute Pleural effusion Acute SCLC (small cell lung carcinoma) Acute 02/06/13 Shortness of breath Acute Vertigo Acute Vomiting and diarrhea Acute
--- NOTE | 2018-06-15 15:24 | PDGENHP ---
History and Physical - Chief Complaint UTI, altered mental status - History of Present Illness 72 y/o w/ hx of metastatic lung cancer presents from the request of her oncologist d/t acute altered mental status and subsequently urinary tract infection. She came to a routine appointment today w/o wearing shoes and c/o frontal headache, onset yesterday. She reports she has been feeling lightheaded, experiencing non-bloody emesis and diarrhea, nausea for the last few days. Denies fevers. Urinalysis is + for UTI. Denies CP, palpitations, SOB, fevers, chills. She is being admitted for treatment and monitoring. History Information - Allergies/Home Medication List Allergies/Adverse Reactions: erythromycin base [Erythromycin Base] Allergy (Mild, Verified 04/06/16 16:50) rash/GI upset Home Medications: Lisinopril [Zestril 2.5 mg (*)] 2.5 mg PO HS 06/15/18 [Last Taken 06/14/18] Multivitamins [Multivitamin (*)] 1 each PO HS 06/15/18 [Last Taken 06/14/18] Sodium Bicarbonate [Na Bicarb 650 MG (RX)] 650 mg PO BID 06/15/18 [Last Taken 21:00] Vitamin B Complex [Vitamin B Complex (OTC)] 1 each PO HS 06/15/18 [Last Taken ] Warfarin Sodium [Coumadin 5MG (*)] 5 mg PO SUTUTHSA@06/15/18 [Last Taken ] Warfarin Sodium [Coumadin 7.5MG (*)] 7.5 mg PO MWF@06/15/18 [Last Taken 06/13] azaTHIOprine [Imuran 50 mg (*)] 50 mg PO HS 06/15/18 [Last Taken 06/14/18] traZODone [traZODONE 100MG (*)] 100 mg PO HS 06/15/18 [Last Taken 06/14/18] I have personally reviewed and updated: family history, medical history, social history, surgical history - Past Medical History cancer (Met lung cancer to brain s/p tx in 2012 w/o obvious recurrence), COPD, Crohn's Disease (On azathiprine, 2/2 SBO), DVT (On warfarin) Additional medical history: Chronic pancreatitis - Surgical History Reports: cholecystectomy, hysterectomy - Family History Positive for: non-pertinent - Social History Smoking Status: Former smoker Alcohol Use: Occasionally (A glass of wine/day) Drug Use: None Additional social history: Lives in [place]. Independent living area 55+ y/o community. Has family game night every Wednesday. Children live nearby. . Review of Systems Review of Systems: ROS: 10pt was reviewed & negative except for what was stated in HPI & below Physical Exam Physical Exam: Lab data and imaging were reviewed. Case discussed w/admitting physician, Dr. Miles Crocker EK bpm, SR, normal axis Head CT: No acute intracranial process Temp Pulse Resp BP Pulse Ox 36.7 C 74 17 152/110 H 95 06/15/18 14:10 06/15/18 14:10 06/15/18 14:10 06/15/18 14:10 06/15/18 14:10 Constitutional: uncomfortable, other (Pale appearing, pleasant, cooperative. ) Eyes: PERRL, anicteric sclera, EOMI Ears, Nose, Mouth, Throat: ears appear normal, no oral mucosal ulcers, dry mucous membranes, hard of hearing (Right ear is her "good ear") Cardiovascular: regular rate and rhythym, no murmur, rub, or gallop, No edema Peripheral Pulses: 2+: dorsalis-pedis (R) (Radial 2+), dorsalis-pedis (L) ( Radial 2+) Respiratory: no respiratory distress, no rales or rhonchi, clear to auscultation Gastrointestinal: normoactive bowel sounds, no palpable masses, tenderness Genitourinary: no bladder fullness, no bladder tenderness Skin: warm, normal color, no rashes or abrasions, no fluctuance, no induration, No mottled Musculoskeletal: full muscle strength, no muscle tenderness, normal joint ROM, no joint effusions Neurologic: AAOx3, sensation intact bilaterally, CN II-XII Intact Psychiatric: interacting appropriately, not anxious, not encephalopathic, thought process linear Lymph, Heme, Immunologic: no cervical LAD, no supraclavicular LAD Lab Data & Imaging Review 06/15/18 11:13 06/15/18 11:13 WBC 9.38 10^3/uL (3.80-9.50) 06/15/18 11:13 RBC 3.29 10^6/uL (4.18-5.33) L 06/15/18 11:13 Hgb 11.3 g/dL (12.6-16.3) L 06/15/18 11:13 Hct 33.1 % (38.0-47.0) L 06/15/18 11:13 MCV 100.6 fL (81.5-99.8) H 06/15/18 11:13 MCH 34.3 pg (27.9-34.1) H 06/15/18 11:13 MCHC 34.1 g/dL (32.4-36.7) 06/15/18 11:13 RDW 14.6 % (11.5-15.2) 06/15/18 11:13 Plt Count 224 10^3/uL (150-400) 06/15/18 11:13 MPV 10.2 fL (8.7-11.7) 06/15/18 11:13 Neut % (Auto) 84.6 % (39.3-74.2) H 06/15/18 11:13 Lymph % (Auto) 8.6 % (15.0-45.0) L 06/15/18 11:13 [place] % (Auto) 6.0 % (4.5-13.0) 06/15/18 11:13 Eos % (Auto) 0.1 % (0.6-7.6) L 06/15/18 11:13 Baso % (Auto) 0.3 % (0.3-1.7) 06/15/18 11:13 Nucleat RBC Rel Count 0.0 % (0.0-0.2) 06/15/18 11:13 Absolute Neuts (auto) 7.93 10^3/uL (1.70-6.50) H 06/15/18 11:13 Absolute Lymphs (auto) 0.81 10^3/uL (1.00-3.00) L 06/15/18 11:13 Absolute Monos (auto) 0.56 10^3/uL (0.30-0.80) 06/15/18 11:13 Absolute Eos (auto) 0.01 10^3/uL (0.03-0.40) L 06/15/18 11:13 Absolute Basos (auto) 0.03 10^3/uL (0.02-0.10) 06/15/18 11:13 Absolute Nucleated RBC 0.00 10^3/uL (0-0.01) 06/15/18 11:13 Immature Gran % 0.4 % (0.0-1.1) 06/15/18 11:13 Immature Gran # 0.04 10^3/uL (0.00-0.10) 06/15/18 11:13 PT 22.8 SEC (12.0-15.0) H 06/15/18 11:13 INR 2.13 (0.83-1.16) H 06/15/18 11:13 APTT 37.5 SEC (23.0-38.0) 06/15/18 11:13 Sodium 137 mEq/L (135-145) 06/15/18 11:13 Potassium 5.0 mEq/L (3.5-5.2) 06/15/18 11:13 Chloride 104 mEq/L (97-110) 06/15/18 11:13 Carbon Dioxide 21 mEq/l (22-31) L 06/15/18 11:13 Anion Gap 12 mEq/L (6-14) 06/15/18 11:13 BUN 21 mg/dL (7-23) 06/15/18 11:13 Creatinine 1.2 mg/dL (0.6-1.0) H 06/15/18 11:13 Estimated GFR 44 06/15/18 11:13 Glucose 101 mg/dL (70-100) H 06/15/18 11:13 Calcium 9.3 mg/dL (8.5-10.4) 06/15/18 11:13 POC Troponin I 0.01 ng/mL (0.00-0.08) 06/15/18 11:17 Urine Color RED 06/15/18 13:15 Urine Appearance HAZY 06/15/18 13:15 Urine pH 8.0 (5.0-7.5) H 06/15/18 13:15 Ur Specific [place] 1.013 (1.002-1.030) 06/15/18 13:15 Urine Protein NEGATIVE (NEGATIVE) 06/15/18 13:15 Urine Ketones NEGATIVE (NEGATIVE) 06/15/18 13:15 Urine Blood NEGATIVE (NEGATIVE) 06/15/18 13:15 Urine Nitrate POSITIVE (NEGATIVE) H 06/15/18 13:15 Urine Bilirubin NEGATIVE (NEGATIVE) 06/15/18 13:15 Urine Urobilinogen NEGATIVE EU (0.2-1.0) 06/15/18 13:15 Ur Leukocyte Esterase 2+ (NEGATIVE) H 06/15/18 13:15 Urine RBC NONE SEEN /hpf (0-3) 06/15/18 13:15 Urine WBC 50-182 /hpf (0-3) H 06/15/18 13:15 Ur Epithelial Cells TRACE /lpf (NONE-1+) 06/15/18 13:15 Urine Bacteria TRACE /hpf (NONE SEEN) H 06/15/18 13:15 Urine Glucose NEGATIVE (NEGATIVE) 06/15/18 13:15 Assessment & Plan Plan: 72 y/o female presents from oncologist office after being seen for a routine appointment and appearing confused/not wearing shoes. [id number]-cd-[id number] reporting pt seemed to not understand what was being said to her. UA is + for leukocyte esterase, WBC, and bacteria. Hemodynamically stable: BP 152/110, HR 74, Resp 17 , 36.7c, 95% RA. #Symptomatic urinary tract infection: Received Keflex PO in ED. -Urine culture pending; last culture 2016 revealed Klebsiella -Initiated Ceftriaxone IV to start today -IVF x 2 bags for hypovolemia 2/2 emesis and diarrhea -GI pathogen panel pending -Anti-emetics PRN -CBC/CMP in AM -PT/OT to evaluate and treat #Altered mental status: She answered my questions appropriately and did not seem to be confused at the time of interaction. A&Ox3. Cont to monitor. Suspect possible cause of AMS is d/t problem of UTI. #Chronic anemia: appears H/H is baseline (11.3/33.1). Cont to monitor. Will check CBC in AM. No acute bleeding. 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 INR therapeutic range is 2.0-3.0. Cont warfarin and will check INR in AM Diet: Regular VTE ppx: warfarin Code: DNR Dispo: Admit to obs
[2018-06-15] MEDS: NS 1,000 ML IV SCH (16:04)
[2018-06-15] MEDS: traZODone 100 MG TAB PO SCH (20:43)
[2018-06-15] MEDS: SODIUM BICARBONATE 650 MG TAB PO SCH (20:43)
[2018-06-15] MEDS: VITAMIN B COMPLEX 1 EA CAP/TAB PO SCH (20:43)
[2018-06-15] MEDS: azaTHIOprine 50 MG TAB PO SCH (20:43)
[2018-06-15] MEDS: LISINOPRIL 2.5 MG TAB PO SCH (20:43)
[2018-06-15] MEDS: MULTIVITAMINS 1 EACH TAB PO SCH (20:43)
[2018-06-15] MEDS ORDERED: WARFARIN SODIUM 7.5 MG TAB PO SCH (21:00)
[2018-06-16 06:05] LABS: PLATELET COUNT 183 10^3/uL (150-400)
[2018-06-16 06:12] LABS: INR 2.09 (0.83-1.16); PROTIME(PATIENT) 22.5 SEC (12.0-15.0)
[2018-06-16] MEDS: SODIUM BICARBONATE 650 MG TAB PO SCH ×2 (07:59→20:03)
[2018-06-16] MEDS: ACETAMINOPHEN 325 MG TAB PO PRN ×3 (07:59→20:02)
[2018-06-16] MEDS: NS 1,000 ML IV SCH (10:14)
--- NOTE | 2018-06-16 13:19 | HOSPPROG ---
Hospitalist Progress Note Assessment/Plan: 72 yo female with confusion and weakness #UTI: Rocephin, cont #Dehydration, resolved, stop IVF #Diarrhea: -CX: EPEC -for now cont with supportive care. Rocephin was started on admission for UTI, cont for now #Metastatic Lung Cancer #COPD, not in exacerbation, on RA #chronic AC for hx of DVT/PE #Generalized Weakness, very weak per therapy toady. will await reccs Dispo: change to inpatient. Still weak, not safe for home d/c today Subjective: no cp or sob. feels better, less confused. but still very weak Objective: Vital Signs Temp Pulse Resp BP Pulse Ox 36.6 C 68 20 165/75 H 92 06/16/18 11:59 06/16/18 11:59 06/16/18 11:59 06/16/18 11:59 06/16/18 11:59 Microbiology 06/15/18 15:43 Gastrointestinal Tract Panel (PCR) - Final Stool E.coli Enteropathogenic(Epec) Laboratory Results 06/16/18 05:56 06/16/18 05:56 06/15/18 06/16/18 06/17/18 05:59 05:59 05:59 Intake Total 745 Output Total 500 50 Balance 245 -50 PT 22.5 SEC (12.0-15.0) H 06/16/18 05:56 INR 2.09 (0.83-1.16) H 06/16/18 05:56 - Physical Exam Constitutional: no apparent distress Eyes: PERRL, EOMI Ears, Nose, Mouth, Throat: moist mucous membranes, hearing normal Cardiovascular: regular rate and rhythym, No edema Respiratory: no respiratory distress, no rales or rhonchi, clear to auscultation Gastrointestinal: normoactive bowel sounds Skin: warm Musculoskeletal: generalized weakness Neurologic: AAOx3 Psychiatric: interacting appropriately, not anxious, not encephalopathic Lymph, Heme, Immunologic: No petechiae ICD10 Worksheet Patient Problems: Problems Problem Status Onset UTI (urinary tract infection) Acute Inflammatory bowel disease Active Tobacco user Active Acute pancreatitis Acute Acute renal failure Acute COPD (chronic obstructive pulmonary disease) case management patient Acute Chronic obstructive pulmonary disease with acute exacerbation Acute Dehydration, moderate Acute Fecal impaction Acute 07/03/13 Foot swelling Acute Hypoxia Acute Pleural effusion Acute SCLC (small cell lung carcinoma) Acute 02/06/13 Shortness of breath Acute Vertigo Acute Vomiting and diarrhea Acute
--- NOTE | 2018-06-16 14:19 | ASMTCMCOM ---
CM Note CM Note Notes: Pt admitted to hospital from oncologist office for AMS. Pt has a hx of lung ca w/ mets to the brain, urine cx reveals UTI. Pt lives alone in a 55+ community but has family local that she sees 1 a week for "game night". OT recommends SNF vs HC but continuing to asses, PT eval pending. DC Plan: TBD Date Signed: 06/16/2018 02:18 PM Electronically Signed By:Madison Rosenberg RN
[2018-06-16] MEDS: VITAMIN B COMPLEX 1 EA CAP/TAB PO SCH (20:03)
[2018-06-16] MEDS: LISINOPRIL 2.5 MG TAB PO SCH (20:03)
[2018-06-16] MEDS: traZODone 100 MG TAB PO SCH (20:03)
[2018-06-16] MEDS: azaTHIOprine 50 MG TAB PO SCH (20:03)
[2018-06-16] MEDS: MULTIVITAMINS 1 EACH TAB PO SCH (20:04)
[2018-06-16] MEDS ORDERED: WARFARIN SODIUM 5 MG TAB PO SCH (21:00)
[2018-06-17 05:38] LABS: INR 2.07 (0.83-1.16); PROTIME(PATIENT) 22.3 SEC (12.0-15.0)
[2018-06-17] MEDS: SODIUM BICARBONATE 650 MG TAB PO SCH (09:07)
--- NOTE | 2018-06-17 10:02 | PDMN ---
Medical Necessity Medical necessity: Change to IP, as of 06/16/18, per MD & MCG M-300; est los >2 mn for ongoing management of UTI & diarrhea w/confusion & weakness; pt not safe for dc home; requiring further monitoring, IV abx, & therapies; comorbid advanced age, metastatic lung cancer, COPD, DVT/PE on AC
[2018-06-17 11:03] VITALS: BP 144/78
--- NOTE | 2018-06-17 12:30 | PDIAF ---
- Diagnosis Diagnosis: weakness, deconditioning, uti Code Status: Do Not Resuscitate - Medication Management Discharge Medications: electronically signed and located in the Home Medication List. - Orders Services needed: Home Care, Certified Computer Service Technician, Physical Therapy, Occupational Therapy Home Care Face to Face: I certify that this patient was under my care and that I had the required [id number] encounter meeting the encounter requirements on the discharge day. My findings support the fact that the patient is homebound as defined in Home Care Face to Face Continued: CMS Chapter 7 Medicare Benefits Manual 30.1.1 , The condition of the patient is such that there exists a normal inability to leave home and consequently, leaving home would require a considerable and taxing effort. Isolation Type: Chemotherapy Isolation Diet Recommendation: no restrictions on diet Diet Texture: Regular Texture Diet Additional Instructions: Activity: as tolerated F/U: with PCP next week. on follow up, please discuss if additional blood pressure medications are needed. Your blood pressure was a little elevated during this admission Home Health care is being set up for assistance and physical therapy. - Follow Up Care Current Providers and Referrals: Concepcion Smith MD [Primary Care Provider] - As per Instructions
--- NOTE | 2018-06-17 12:48 | ASMTLACE ---
LACE Length of stay for Answers: 2 days current admission Acuity / Level of Answers: No Care: Did the patient have an inpatient admission? Comorbidities - select Answers: Any tumor (including all that apply lymphoma or leukemia) Chronic pulmonary disease Opioid dependence / Chronic pain Other Notes: DVT/PE; Crohn's disease # of Emergency department Answers: 1-2 visits in the last 6 months Score: 12 Date Signed: 06/17/2018 12:47 PM Electronically Signed By:Madison Rosenberg RN
--- NOTE | 2018-06-17 12:58 | ASMTCMCOM ---
CM Note CM Note Notes: Met with pt and sister in law. PT/OT recommend snf, pt does not want. CM offered to set up homecare but pt refuses, states she will not be homebound. Pt requests call to [facility] to help set up services, CM called and they will reach out to pt on Wednesday. DC Plan: Independent Date Signed: 06/17/2018 12:58 PM Electronically Signed By:Madison Rosenberg RN
--- NOTE | 2018-06-18 14:14 | PDDCSUM ---
Discharge Summary Discharge Summary: 72 yo female admitted with confusion and weakness found to have dehydration and UTI. She was treated accordingly per below. She is now back to baseline. Therapies recommended SNF but she refused. She will d/c home. DDX: #UTI: Rocephin. has completed abx course #Dehydration, resolved #Diarrhea: improving -CX: EPEC #Metastatic Lung Cancer #COPD, not in exacerbation, on RA #chronic AC for hx of DVT/PE #Generalized Weakness, improving Exam: NAD AAOX3 RRR CTA B S/NT/ND MEDS: SEE MED REC TOTAL TIME SPENT ON D/C IS 35 MINS
== END 2018-06-17 13:14 | disposition home health service (06) | DRG 690 ==
LOC: F3E 15:18 → OBSVTOIN 06-16 13:15
PROVIDERS: ADMIT Family Medicine; ATTEND Family Medicine
DX: N39.0 Urinary tract infection, site not specified (principal); E86.0 Dehydration; D53.9 Nutritional anemia, unspecified; J44.9 Chronic obstructive pulmonary disease, unspecified; C79.31 Secondary malignant neoplasm of brain; K50.90 Crohn's disease, unspecified, without complications; K86.1 Other chronic pancreatitis; Z85.118 Personal history of other malignant neoplasm of bronchus and lung; Z86.718 Personal history of other venous thrombosis and embolism; Z86.711 Personal history of pulmonary embolism; Z79.01 Long term (current) use of anticoagulants; Z87.891 Personal history of nicotine dependence; Z66 Do not resuscitate
CPT/HCPCS: 84484-ER; 97162-GP; 97165-GO; 97530-GO; 97535-GO; G0378; J0696; J7500